=== PATIENT | male | born 1960 | race Caucasian/White ===

== ENCOUNTER → 2019-09-21 00:01 | Outpatient (RCR) | payer SELFPAY | LOC: WOUND 14:05 | PROVIDERS: Family Provider Family Medicine; Visit Provider Thoracic Surgery (Cardiothoracic Vascular Surgery) | DX: E11.621 Type 2 diabetes mellitus with foot ulcer (principal); L97.512 Non-pressure chronic ulcer of other part of right foot with fat layer exposed; I96 Gangrene, not elsewhere classified | CPT/HCPCS: 11042; G0463 ==

== ENCOUNTER 2019-09-23 09:41 | Outpatient (CLI) | payer MEDICARE, MEDICAID, SELFPAY ==
--- NOTE | 2019-09-23 09:58 | CT_ITS ---
WS: [id number] CTA ABDOMINAL AORTA WITH RUNOFF TECHNIQUE: Contrast enhanced CTA of the abdominal aorta with bilateral lower extremity runoff. Multip lanar reformatted images were obtained. MIP reformats were also reviewed. Bolus performed x 2 due to poor contrast opacification CLINICAL INFORMATION: NON HEALING ULCER/PERIPHERAL ARTERIAL DZ COMPARISON: CTA August 12, 2018 DLP: [id number] scans at [facility] use at least one of these dose optimization techniques: automat ed exposure control; mA and/or kV adjustment per patient size (includes targeted exams where dose is matched to clinical indication); or iterative reconstruction. FINDINGS: RIGHT: Right iliac stent graft. Right common iliac stent graft appears patent. Right common iliac art klaudia is patent. Internal and external iliac arteries are patent with segmental calcified atheromatous disease. Common femoral artery is patent. Stable multifocal stenosis of the right superficial femoral artery. SFA remains patent to the popliteal artery. Dense calcification with nearly occluded/occlude d popliteal artery [id number] is unchanged. Occlusion of the popliteal artery in the right poplit eal fossa. Tiny amount of reconstitution of the trifurcation with two-vessel runoff to the ankle. Poo r attenuated flow in the posterior tibial artery. LEFT: Left common iliac artery stent graft with moderate to severe stenosis in the mid left common il iac artery at the stent junction is unchanged. Common femoral artery is patent. SFA is patent with se gmental moderate multifocal stenosis. Stable moderate narrowing of the superficial femoral artery in the proximal thigh. Superficial femoral artery is patent to the popliteal junction. Dense calcificati on at the popliteal artery origin with high-grade stenosis. Popliteal artery appears occluded just ab ove the knee similar to previous with dense calcification. Trifurcation is patent with two-vessel run off to the ankle. Poor attenuated anterior tibial artery runoff. Normal caliber abdominal aorta. No abdominal aortic aneurysm. Moderate atheromatous disease. Cholecys tectomy clips. Adrenal glands are normal. Normal GE junction. Normal renal parenchymal enhancement. D ense mesenteric artery calcification. Fat-containing umbilical hernia. Diverticulosis. Fat-containing left inguinal hernia. Chronic anterior wedging in the mid thoracic spine is unchanged with kyphosis. Subsegmental atelectasis right lung base. Fat-containing inguinal lymph nodes are unchanged. CT/CT angio abd aorta runof [id number] IMPRESSION: 1. Overall bilateral lower extremity runoff is not significantly changed since August 12, 2018. Somewhat poor bolus contrast today limits evaluation. 2. Bilateral common iliac artery stents appear patent. 3. Bilateral symmetric multifocal superficial femoral artery stenosis. Femoral arteries are patent to the popliteal hiatus. 4. Occlusion of the popliteal arteries bilaterally with dense calcification un changed. 5. Poor two-vessel runoff to the right ankle with diminished posterior tibial flow. 6. Poor two-vessel runoff to the left ankle with diminished anterior tibial fl ow.
[2019-09-23 10:42] LABS: Blood Urea Nitrogen 34 mg/dL (6-20); Glomerular Filtration Rate 62.2 mL/min (90-130)
[2019-09-23] MEDS: iohexol 350 mg/mL 100 mL Btl IV (10:57)
== END 2019-09-23 09:42 | disposition home or self-care (01) ==
PROVIDERS: Family Provider Family Medicine; PCP Family Medicine; Visit Provider Thoracic Surgery (Cardiothoracic Vascular Surgery)
DX: I70.213 Atherosclerosis of native arteries of extremities with intermittent claudication, bilateral legs (principal); I74.3 Embolism and thrombosis of arteries of the lower extremities
CPT/HCPCS: 75635; 82565; 84520; Q9967

== ENCOUNTER → 2019-10-15 14:44 | Outpatient (BNVA) | payer MEDICARE, MEDICAID, SELFPAY | PROVIDERS: Family Provider Family Medicine; PCP Family Medicine; Visit Provider Anesthesiology | DX: G89.29 Other chronic pain (principal); M48.061 Spinal stenosis, lumbar region without neurogenic claudication; M51.06 Intervertebral disc disorders with myelopathy, lumbar region; M47.816 Spondylosis without myelopathy or radiculopathy, lumbar region; M79.671 Pain in right foot; M25.511 Pain in right shoulder; M25.512 Pain in left shoulder; Z79.891 Long term (current) use of opiate analgesic | CPT/HCPCS: 99214 ==

== ENCOUNTER 2019-10-19 15:18 | Outpatient (RCR) | payer MEDICARE, MEDICAID, SELFPAY | END 2019-10-22 23:59 | disposition home or self-care (01) | LOC: WOUND 15:18 | PROVIDERS: Family Provider Family Medicine; PCP Family Medicine; Visit Provider Thoracic Surgery (Cardiothoracic Vascular Surgery) | DX: E11.621 Type 2 diabetes mellitus with foot ulcer (principal); L97.513 Non-pressure chronic ulcer of other part of right foot with necrosis of muscle | CPT/HCPCS: 11042; 11044; 87070; 87077; 87176; 87186; 87205; L3260 ==

== ENCOUNTER 2019-10-25 12:39 | Outpatient (RCR) | payer MEDICARE, MEDICAID, SELFPAY ==
--- NOTE | 2019-10-25 12:52 | XRR_ITS ---
PROCEDURE INFORMATION: Exam: XR Chest, 2 Views Exam date and time: 10/25/2019 1:30 PM Age: 58 years old Clinical indication: Pre-operative exam; Cardiovascular screening and respiratory screening exam; Additional info: Screening respiratory TECHNIQUE: Imaging protocol: XR of the chest Views: 2 views. COMPARISON: CR Chest 1 view [id number] 08/04/2018 2:46 PM FINDINGS: Lungs: Unremarkable. No consolidation. Pleural space: Unremarkable. No pleural effusion. No pneumothorax. Heart/Mediastinum: Unremarkable. No cardiomegaly. Bones/joints: Unremarkable. XR/XR chest 2V* [id number] IMPRESSION: No acute findings.
--- NOTE | 2019-10-25 13:18 | ECG_ITS ---
Measurements Intervals [place] Rate: 64 P: 30 NM: 169 QRS: -16 QRSD: 96 T: 58 QT: 383 QTc: 398 SINUS RHYTHM Compared to ECG 11/25/2017 13:44:16 No significant changes Electronically Signed On 10-25-2019 21:08:04 [employer]CHO[employer] PRINCIPAL by Momo Camilo M.D. [id number]
[2019-10-25 13:29] LABS: Basophils % 0.3 %; Eosinophils # 0.3 10^3/uL (0.0-0.8); Eosinophils % 2.1 %; Hematocrit 40.3 % (42.0-52.0); Hemoglobin 13.1 g/dL (11.7-16.6); Lymphocytes # 1.9 10^3/uL (0.8-4.8); Lymphocytes % 14.5 %; Mean Corpuscular HGB Conc 32.5 g/dL (30.0-36.0); Mean Corpuscular Hemoglobin 27.7 pg (28.0-34.0); Mean Corpuscular Volume 85.2 fL (80-94); Monocytes % 7.5 %; Neutrophils % 74.9 %; Nucleated Red Blood Cells % 0 %; Platelet Count 250 10^3/cmm (130-400); Red Blood Count 4.73 10^6/uL (4.1-5.3); Red Cell Distribution Width 12.2 % (12.1-15.1); White Blood Count 13.3 10^3/uL (4.0-10.0)
[2019-10-25 13:50] LABS: Alanine Aminotransferase 16 U/L (0-41); Alkaline Phosphatase 91 IU/L (40-130); Anion Gap 14.7 (5-19); Aspartate Amino Transferase 17 U/L (0-40); Blood Urea Nitrogen 34 mg/dL (6-20); C Reactive Protein 24.3 mg/L (0.0-4.9); Carbon Dioxide 30 mmol/L (22-29); Chloride 95 mmol/L (98-107); Globulin 3.5 g/dL (1.3-4.6); Glomerular Filtration Rate 52.1 mL/min (90-130); Glucose 150 mg/dL (74-109); Potassium 4.7 mmol/L (3.5-5.1); Sodium 135 mmol/L (136-145); Total Bilirubin 0.5 mg/dL (0.15-1.2); Total Protein 7.5 g/dL (6.6-8.7)
[2019-10-25 13:59] LABS: Prealbumin 19.6 mg/dL (20-40)
[2019-10-25 14:10] LABS: Estmated Average Glucose 200; Hemoglobin A1C 8.6 % (4.0-6.0)
[2019-10-25 14:54] LABS: Erythrocyte Sedimentation Rate 52 mm/hr (0-10)
== END 2019-11-20 23:59 | disposition home or self-care (01) ==
LOC: WOUND 12:39
PROVIDERS: Family Provider Family Medicine; PCP Family Medicine; Visit Provider Thoracic Surgery (Cardiothoracic Vascular Surgery)
DX: E11.621 Type 2 diabetes mellitus with foot ulcer (principal); L97.513 Non-pressure chronic ulcer of other part of right foot with necrosis of muscle; Z13.6 Encounter for screening for cardiovascular disorders; Z13.83 Encounter for screening for respiratory disorder NEC
CPT/HCPCS: 36415; 71046; 80053; 83036; 84134; 85025; 85651; 86140; 93005; 99183; 99212; G0277; G0463

== ENCOUNTER 2019-11-10 09:51 | Outpatient (CLI) | payer MEDICARE, MEDICAID, SELFPAY ==
[2019-11-10 10:28] LABS: Basophils # 0.1 10^3/uL (0.0-0.1); Basophils % 0.4 %; Eosinophils # 0.4 10^3/uL (0.0-0.8); Eosinophils % 3.4 %; Hematocrit 37.8 % (42.0-52.0); Hemoglobin 11.9 g/dL (11.7-16.6); Lymphocytes # 1.5 10^3/uL (0.8-4.8); Lymphocytes % 12.6 %; Mean Corpuscular HGB Conc 31.5 g/dL (30.0-36.0); Mean Corpuscular Hemoglobin 27.2 pg (28.0-34.0); Mean Corpuscular Volume 86.5 fL (80-94); Mean Platelet Volume 11.7 fL (7.4-10.4); Monocytes # 0.9 10^3/uL (0.2-0.9); Monocytes % 7.6 %; Neutrophils # 8.9 10^3/uL (1.8-7.7); Neutrophils % 75.2 %; Nucleated Red Blood Cells % 0 %; Platelet Count 304 10^3/cmm (130-400); Red Blood Count 4.37 10^6/uL (4.1-5.3); Red Cell Distribution Width 12.1 % (12.1-15.1); White Blood Count 11.8 10^3/uL (4.0-10.0)
[2019-11-10 10:53] LABS: Anion Gap 17.8 (5-19); Blood Urea Nitrogen 30 mg/dL (6-20); Carbon Dioxide 27 mmol/L (22-29); Chloride 96 mmol/L (98-107); Glomerular Filtration Rate 56.7 mL/min (90-130); Glucose 106 mg/dL (65-115); Osmolality Calculated 280 mOsm/kg (285-295); Potassium 4.8 mmol/L (3.5-5.1); Sodium 136 mmol/L (136-145)
== END 2019-11-10 09:52 | disposition home or self-care (01) ==
LOC: LAB 09:59
PROVIDERS: Family Provider Family Medicine; PCP Family Medicine; Visit Provider Thoracic Surgery (Cardiothoracic Vascular Surgery)
DX: E11.9 Type 2 diabetes mellitus without complications (principal)
CPT/HCPCS: 36415; 80048; 85025; 99183; 99212; G0277; G0463

== ENCOUNTER 2019-11-16 07:50 | Outpatient (RCR) | payer MEDICARE, MEDICAID, SELFPAY | END 2019-11-20 23:59 | disposition home or self-care (01) | LOC: WOUND 07:50 | PROVIDERS: Family Provider Family Medicine; PCP Family Medicine; Visit Provider Thoracic Surgery (Cardiothoracic Vascular Surgery) | DX: E11.621 Type 2 diabetes mellitus with foot ulcer (principal); L97.513 Non-pressure chronic ulcer of other part of right foot with necrosis of muscle | CPT/HCPCS: 10060; 11042; 11044; 36415; 71046; 80053; 83036; 84134; 85025; 85651; 86140; 87070; 87077; 87186; 93005; 99183; G0277; G0463; L3260 ==

== ENCOUNTER 2019-11-17 07:04 | Day surgery (SDC) | payer MEDICARE, MEDICAID, SELFPAY ==
[2019-11-16 14:46] VITALS: BMI 38.7
[2019-11-17 07:32] LABS: Glucose Point of Care 156 mg/dL (70-110)
[2019-11-17 07:38] VITALS: BP 157/64; RESP 18; TEMP 37.1; O2SAT 98
--- NOTE | 2019-11-17 08:52 | PM.OPSURHP ---
Providers/Chief Complaint Admitting Physician: Antonio Primary Care Provider: Latoya Dumont DO Chief Complaint: PVD History of Present Illness Frank Estes JR is a 59 year old male with diabetes mellitus along with history of bilateral foot diabetic ulceration requiring numerous interventions and long history of care for in the wound care service here at [facility]. Most recently, we have been caring for a right third toe ulceration which is undergone prior debridements and now has worsened to the point that there is visualization of the proximal phalanx. He only has a second toe remaining on this foot as well. I have recommended amputation of his second and third toes with an attempt at primary closure or possible wound VAC placement for the resulting wound depending on the degree of amputation and debridement required. I have last seen him in wound care clinic yesterday. He is agreeable to the planned procedure. While his right second toe is not involved with this process, it would be the only remaining toe and I think would be at a high risk for injury, particular related to its hammertoe deformity. He agrees with our current plan. But she will need for further debridements or other interventions were also carefully discussed. He is undergone prior vascular procedures including previous endovascular interventions. Review of Systems Const: Denies: fever, chills, change in appetite, change in weight, fatigue or night sweats Eyes: Denies: change in vision or blurry vision ENMT: Denies: painful swallowing or hoarseness Card: Denies: chest pain, palpitations, irregular heart rhythm or edema Resp: Denies: shortness of breath or productive cough GI: Denies: abdominal pain, nausea, vomiting, difficulty swallowing, heartburn/indigestion or change in bowel habits : Denies: difficulty urinating, painful urination, urinary frequency, urinary urgency or urinary hesitancy Musc: Denies: extremity pain or extremity swelling Skin/Breast: Denies: rash Neuro: Denies: headache, numbness in extremities, weakness in extremities or changes in sensation Psych: Denies: anxiety, depression or change in appetite Endo: Denies: excessive urination, excessive thirst or cold intolerance Tomasz/Lymph: Denies: easy bruising, easy bleeding, petechiae or enlarged lymph nodes Medications/Allergies Allergies Allergy/AdvReac Type Severity Reaction Status Date / Time No Known Allergies Allergy Verified 11/16/19 14:30 PFSH PFSH: Medical History Amputation of left great toe Arthralgia of back Arthropathy of lumbar facet joint Chronic pain of both shoulders 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 Pain in right foot Spinal stenosis, lumbar region without neurogenic claudication Surgical History H/O right knee surgery Hx laparoscopic cholecystectomy Hx of foot surgery Social History Smoking and tobacco status: former smoker Alcohol intake: never Dietary Habits: Caffeine: Yes Caffeine intake frequency: coffee Vital Signs Vitals Signs: Last Vital Signs Temp 98.8 F 11/17/19 07:38 Resp 18 11/17/19 07:38 BP 157/64 11/17/19 07:38 Pulse Ox 98 11/17/19 07:38 Weight: Weight last 48 hrs Weight 310 lb Physical Exam Const: COMMON NORMALS: oriented x3 and alert ORIENTATION/CONSCIOUSNESS: Yes oriented to person, Yes oriented to place and Yes oriented to time HENMT: COMMON NORMALS: normocephalic HEAD & SCALP: normocephalic; no cranial bruits Neck/C-Spine: COMMON NORMALS: full ROM, supple, no JVD and no carotid bruits GENERAL: Yes trachea midline CERVICAL SPINE: Yes cervical ROM normal Chest: COMMONS NORMALS: inspection of chest normal and palpation of chest normal Resp: COMMON NORMALS: normal respiratory effort, no use of accessory muscles, clear to auscultation bilaterally and percussion normal EFFORT & INSPECTION: Yes able to speak in complete sentences and Yes symmetric chest movement AUSCULTATION: clear to auscultation bilaterally PERCUSSION: percussion normal Cardio: COMMON NORMALS: no JVD, regular rate, regular rhythm, S1 normal heart sound, S2 normal heart sound, no gallops, no murmurs, no rub and peripheral pulses 2+ throughout JUGULAR VENOUS DISTENTION: no JVD RATE: regular rate RHYTHM: regular rhythm HEART SOUNDS: S1 normal and S2 normal PERIPHERAL PULSES: pulses 2+ throughout Extremity: OTHER: He has had prior to amputation removal on the left side x2. He has had prior substantial interventions to the right foot for diabetic ulcers and has 2 remaining toes, second and third. There is worsening ulceration of the right third toe now with visible proximal phalanx which is not responded to aggressive wound care management including attempted HBO which he tolerated poorly secondary to anxiety. I have therefore recommended amputation of his right second and third toes. Neuro: COMMON NORMALS: oriented x3 and no focal motor deficits; negative for no sensory deficits noted (He has substantial diabetic neuropathy and is almost completely insensate to his feet.) SENSORIUM/ORIENTATION: Yes alert, Yes oriented to person, Yes oriented to place and Yes oriented to time GAIT: No normal gait (Secondary to prior surgeries, toe amputations, foot surgery, and need for Darco shoes) SENSORY EXAM: Yes sensory level loss detected (Feet bilaterally) A&P Assessment and plan (1) Diabetic ulcer of right foot associated with diabetes mellitus due to underlying condition, with necrosis of bone: With now exposed proximal phalanx of the right third toe, we will plan for right second and third toe amputations. Possible need for wound VAC placement as opposed to primary closure was frankly discussed with Mr. Steele. He states understanding. Proper consents have been reviewed and signed. Status: Acute Code(s): E08.621 - Diabetes mellitus due to underlying condition with foot ulcer; L97.514 - Non-pressure chronic ulcer of other part of right foot with necrosis of bone Coding Level of Care Code Acute [facility] for [facility] Fwd Exam Detailed Medical Decision Making Moderate Complexity Diagnoses Diabetic ulcer of right foot associated with diabetes mellitus due to underlying condition, with necrosis of bone E08.621; L97.514 Time Spent (min) 25
--- NOTE | 2019-11-17 09:14 | ANES.PREANE2 ---
Pre-Anesthetic Assessment Pre-Anesthetic Assessment: Height/Weight: Height 1.91 m Weight 140.614 kg Temp Resp BP Pulse Ox 98.8 F 18 157/64 98 11/17/19 07:38 11/17/19 07:38 11/17/19 07:38 11/17/19 07:38 Preop Diagnosis: right diabetic foot infection Proposed Procedure: Operation Date: 11/17/19 08:40 Proposed Procedures p Amputation Toe/s/ 2nd and 3rd toes right side(Right) - Woody Alvarez MD Was Beta Amy taken within 24 hours: Yes Last intake: Intake Last Liquid Date 11/16/19 Last Liquid Time 19:00 Last Solid Date 11/16/19 Last Solid Time 19:00 Social: Social History: Tobacco Packs per day: 1 Pack years: 5 Comment: quit 35 Exam: Pre-Anes Outpt Exam: alert, oriented x 3, clear to auscultation bilaterally and regular rate & rhythm Airway: Submandibular: WNL Cervical ROM: Other MP: 2 CV/HEM: CV/HEM: HTN and PVD Comments: rx'd x 20y stress test '15 negative Metabolic: Metabolic: DM Comments: rx'd 15y, normally 70-100 Musc/skel: Musc/skel: Lower Back Pain Comments: left radiculopathy Anesthetic Plan: ASA status: 3 Anesthesia: MAC Other: prefers light sedation PFSH Anesthesia PFSH: Medical History (Updated 11/17/19 @ 08:58 by Woody Alvarez MD) Amputation of left great toe Arthralgia of back Arthropathy of lumbar facet joint Chronic pain of both shoulders Diabetic ulcer of right foot associated with diabetes mellitus due to underlying condition, 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 Pain in right foot Spinal stenosis, lumbar region without neurogenic claudication Surgical History H/O right knee surgery Hx laparoscopic cholecystectomy Hx of foot surgery Social History Smoking and tobacco status: former smoker Alcohol intake: never Data Anesthesia Other Labs: Laboratory Results - last 48 hr 11/17/19 07:30 POC Glucose 156 Cardiac Studies: No Data to Display
[2019-11-17 09:36] LABS: Basophils # 0.1 10^3/uL (0.0-0.1); Basophils % 0.4 %; Eosinophils # 0.4 10^3/uL (0.0-0.8); Eosinophils % 3.1 %; Hematocrit 36.1 % (42.0-52.0); Hemoglobin 11.3 g/dL (11.7-16.6); Lymphocytes # 1.7 10^3/uL (0.8-4.8); Mean Corpuscular HGB Conc 31.3 g/dL (30.0-36.0); Mean Corpuscular Hemoglobin 27.2 pg (28.0-34.0); Mean Corpuscular Volume 86.8 fL (80-94); Mean Platelet Volume 12.4 fL (7.4-10.4); Monocytes # 1.1 10^3/uL (0.2-0.9); Monocytes % 8.4 %; Neutrophils # 9.7 10^3/uL (1.8-7.7); Neutrophils % 74.1 %; Nucleated Red Blood Cells % 0 %; Platelet Count 296 10^3/cmm (130-400); Red Blood Count 4.16 10^6/uL (4.1-5.3); Red Cell Distribution Width 12.3 % (12.1-15.1)
[2019-11-17 09:37] LABS: Urine Appearance Clear (CLEAR); Urine Color Yellow (Yellow)
[2019-11-17 09:38] LABS: Add Urine Microscopic? YES; Bilirubin Urine Neg (NEGATIVE); Blood Urine Neg (Negative); Glucose Urine UA Norm (Normal); Ketones Urine Negative (Negative); Leukocyte Esterase Urine Negative (Negative); Nitrate Urine Negative (Negative); Protein Urine 1+ (Negative); Specific Gravity, Urine 1.015 (1.005-1.030); Urobilinogen Urine Norm (Negative)
[2019-11-17] MEDS: sodium chloride 0.9% 1,000 ML 30 ML IV (09:45)
[2019-11-17 09:47] LABS: INR 1.14 (0.8-1.2)
[2019-11-17 09:53] LABS: Anion Gap 16.4 (5-19); Blood Urea Nitrogen 27 mg/dL (6-20); Calcium 9.4 mg/dL (8.5-10.5); Carbon Dioxide 25 mmol/L (22-29); Chloride 97 mmol/L (98-107); Glomerular Filtration Rate 68.5 mL/min (90-130); Glucose 170 mg/dL (65-115); Osmolality Calculated 279 mOsm/kg (285-295); Potassium 4.4 mmol/L (3.5-5.1); Sodium 134 mmol/L (136-145)
[2019-11-17] MEDS: vancomycin 1,000 MG in sodium chloride 0.9% 250 ML 250 MG IV (09:58)
[2019-11-17] MEDS: lidocaine 1% INJ 20 mL SUBCUT (10:05)
[2019-11-17] MEDS: vancomycin 1,000 MG SDV 1000 MG IRRIGATION (10:06)
[2019-11-17 10:09] LABS: Bacteria Urine TRACE; Mucus Urine 1+; RBC Urine 0-4 /hpf (0-2); Squamous Epithelial Cell Urine 0-4 (0-5)
[2019-11-17 10:10] LABS: Add Urine Culture? No
--- NOTE | 2019-11-17 11:04 | P.OP_ITS ---
Operative Report Date of procedure: November 17, 2019 Pre-op Diagnosis: right diabetic foot infection Procedure Done: Right second and third toe amputations with primary closure Specimens removed/disposition: Right second and third toe to pathology department Wound cultures to microbiology department Surgeon: Woody Alvarez Anesthesia: MAC and Local (8 cc 1% lidocaine administered local) Complications: None Condition: stable Disposition: same day Brief History: 59-year-old gentleman with a long history of diabetic foot infections. Currently followed in wound care clinic for breakdown of his right third toe which is failed respond to local therapy, now with exposed proximal phalanx. I have recommended subsequent amputation and in addition removal the only remaining toe which is the right second toe due to concerns for local injury related to his hammertoe deformity. Rationale was carefully discussed with Mr. Malcolm. Proper consents have been reviewed and signed. Procedure: Mr. Malcolm was taken operating room theater and carefully positioned. Appropriate IVs were confirmed. He was administered 1 g of vancomycin IV prophylactically. He underwent IV conscious sedation anesthesia monitoring. His entire right foot and lower leg was sterilely prepped and draped. 1% lidocaine was infiltrated circumferentially and as digital blocks to the remaining right second and third toes. #15 scalpel blade was utilized to incise circumferentially around these toes down to the metatarsal phalangeal joints with septic removal of these 2 toes as a single specimen. Cultures from the third toe by way of tissue specimen was obtained and sent to microbiology. The specimens himself first and sent to pathology. Articular surfaces of the right second and third metatarsals were then excised utilizing bone rondure. Hemostasis controlled utilizing pressure and judicious use of cautery. After careful irrigation and confirmation of hemostasis, we did plan to attempt p rimary closure which was the request of Mr. Malcolm. I did instruct him preoperatively that this may not be possible due to tension in the region. There is some modest tension noted however with 2 rows of interrupted mattress sutures of 2-0 nylon, I do feel we had a reasonable approximation and good closure. Following this, Xeroform gauze and sterile dressing was applied. He tolerated procedure well was awakened from IV conscious sedation returned to the outpatient surgery department in stable condition. I did education counselor with him at completion of the procedure. He will be discharged home today for follow-up in wound care clinic next Friday. I will place him on Levaquin 5 mg daily for 7 days pending return of our tissue cultures. I have instructed him to limit weightbearing as much as possible as well as ambulation. I will see him next Friday in the wound care services department.
[2019-11-17 11:13] VITALS: BP 134/76; PULSE 72; RESP 18; TEMP 36.9; O2SAT 98
[2019-11-17 11:37] VITALS: BP 164/82; PULSE 70; RESP 18; TEMP 36.9; O2SAT 98
== END 2019-11-17 11:50 | disposition home or self-care (01) ==
PROVIDERS: Family Provider Family Medicine; PCP Family Medicine; Visit Provider Thoracic Surgery (Cardiothoracic Vascular Surgery)
PROC: (CPT 28820; principal; 2019-11-17 08:40)
DX: E11.621 Type 2 diabetes mellitus with foot ulcer (principal); L97.514 Non-pressure chronic ulcer of other part of right foot with necrosis of bone; I10 Essential (primary) hypertension; E11.9 Type 2 diabetes mellitus without complications; Z87.891 Personal history of nicotine dependence; Z89.412 Acquired absence of left great toe
CPT/HCPCS: 28820 ×2; 12345; 36415; 36416; 80048; 81001; 82962; 85025; 85610; 87070; 87077; 87176; 87186; 87205; 88305; 96365; J2001; J2704; J3010; J3370; J7030; J7050

== ENCOUNTER → 2019-11-24 14:38 | Outpatient (BNVA) | payer MEDICARE, MEDICAID, SELFPAY | PROVIDERS: Family Provider Family Medicine; PCP Family Medicine; Visit Provider Anesthesiology | DX: G89.29 Other chronic pain (principal); M51.06 Intervertebral disc disorders with myelopathy, lumbar region; M48.061 Spinal stenosis, lumbar region without neurogenic claudication; M47.816 Spondylosis without myelopathy or radiculopathy, lumbar region; M54.9 Dorsalgia, unspecified; M25.511 Pain in right shoulder; M25.512 Pain in left shoulder; M79.671 Pain in right foot; Z79.891 Long term (current) use of opiate analgesic | CPT/HCPCS: 99213; 99214; G0463 ==

== ENCOUNTER → 2019-12-15 13:31 | Outpatient (BNVA) | payer MEDICARE, MEDICAID, SELFPAY | PROVIDERS: Family Provider Family Medicine; PCP Family Medicine; Visit Provider Family Medicine | DX: E11.65 Type 2 diabetes mellitus with hyperglycemia (principal); Z79.4 Long term (current) use of insulin; I10 Essential (primary) hypertension | CPT/HCPCS: 80053; 83036; 99211; G0463 ==

== ENCOUNTER 2019-12-21 13:29 | Outpatient (RCR) | payer MEDICARE, MEDICAID, SELFPAY | END 2019-12-21 23:59 | disposition home or self-care (01) | LOC: WOUND 13:29 | PROVIDERS: Family Provider Family Medicine; PCP Family Medicine; Visit Provider Thoracic Surgery (Cardiothoracic Vascular Surgery) | DX: E11.621 Type 2 diabetes mellitus with foot ulcer (principal); L97.519 Non-pressure chronic ulcer of other part of right foot with unspecified severity; Z89.9 Acquired absence of limb, unspecified | CPT/HCPCS: 99211; 99212; G0463; L3260 ==

== ENCOUNTER → 2020-03-23 14:42 | Outpatient (BNVA) | payer MEDICARE, MEDICAID, SELFPAY | PROVIDERS: Family Provider Family Medicine; PCP Family Medicine; Visit Provider Family Medicine | DX: E11.65 Type 2 diabetes mellitus with hyperglycemia (principal); Z79.4 Long term (current) use of insulin; I10 Essential (primary) hypertension | CPT/HCPCS: 80053; 82044; 83036 ==

== ENCOUNTER → 2020-03-31 12:55 | Outpatient (BNVA) | payer MEDICARE, MEDICAID, SELFPAY | PROVIDERS: Family Provider Family Medicine; PCP Family Medicine; Visit Provider Anesthesiology | DX: M51.06 Intervertebral disc disorders with myelopathy, lumbar region (principal); M48.061 Spinal stenosis, lumbar region without neurogenic claudication; M47.816 Spondylosis without myelopathy or radiculopathy, lumbar region; M54.9 Dorsalgia, unspecified; Z79.891 Long term (current) use of opiate analgesic | CPT/HCPCS: 99213; 99214 ==

== ENCOUNTER → 2020-04-03 15:51 | Outpatient (BNVA) | payer MEDICARE, MEDICAID, SELFPAY | PROVIDERS: Family Provider Family Medicine; PCP Family Medicine; Visit Provider Family Medicine | DX: N28.9 Disorder of kidney and ureter, unspecified (principal) | CPT/HCPCS: 82043 ==

== ENCOUNTER → 2020-07-10 14:34 | Outpatient (BNVA) | payer MEDICARE, MEDICAID, SELFPAY | PROVIDERS: Family Provider Family Medicine; PCP Family Medicine; Visit Provider Family Medicine | DX: E78.5 Hyperlipidemia, unspecified (principal); E11.9 Type 2 diabetes mellitus without complications; I10 Essential (primary) hypertension; E11.65 Type 2 diabetes mellitus with hyperglycemia; Z79.4 Long term (current) use of insulin; Z68.39 Body mass index [BMI] 39.0-39.9, adult | CPT/HCPCS: 80053; 80061; 82043; 83036; 85025 ==

== ENCOUNTER → 2020-10-20 09:20 | Outpatient (BNVA) | payer MEDICARE, MEDICAID, SELFPAY | PROVIDERS: Family Provider Family Medicine; PCP Family Medicine; Visit Provider Family Medicine | DX: E11.65 Type 2 diabetes mellitus with hyperglycemia (principal); Z79.4 Long term (current) use of insulin; I10 Essential (primary) hypertension; E78.5 Hyperlipidemia, unspecified | CPT/HCPCS: 80048; 83036 ==

== ENCOUNTER → 2021-01-12 09:07 | Outpatient (BNVA) | payer MEDICARE, MEDICAID, SELFPAY | PROVIDERS: Family Provider Family Medicine; PCP Family Medicine; Visit Provider Family Medicine | DX: E11.65 Type 2 diabetes mellitus with hyperglycemia (principal); Z79.4 Long term (current) use of insulin; E78.5 Hyperlipidemia, unspecified; I10 Essential (primary) hypertension | CPT/HCPCS: 80053; 80061; 83036 ==

== ENCOUNTER → 2021-02-23 12:38 | Outpatient (BNVA) | payer MEDICARE, MEDICAID, SELFPAY | PROVIDERS: Family Provider Family Medicine; PCP Family Medicine; Visit Provider Anesthesiology | DX: M51.06 Intervertebral disc disorders with myelopathy, lumbar region (principal); M48.061 Spinal stenosis, lumbar region without neurogenic claudication; M47.816 Spondylosis without myelopathy or radiculopathy, lumbar region; M54.9 Dorsalgia, unspecified; Z79.891 Long term (current) use of opiate analgesic | CPT/HCPCS: 99213 ==

== ENCOUNTER 2021-07-10 12:50 | Outpatient (CLI) | payer MEDICARE, MEDICAID, SELFPAY ==
--- NOTE | 2021-07-10 13:03 | US_ITS ---
WS: [id number] ULTRASOUND RENAL TECHNIQUE: Ultrasound examination of both kidneys. CLINICAL INFORMATION: CHRONIC KIDNEY DZ STAGE 2 COMPARISON: None. FINDINGS: RIGHT: Right kidney is normal in size and appearance. Echogenicity: Normal. Cortical thickness: 1.5 cm; Normal. Hydronephrosis: None. Perinephric fluid: None. Right kidney measures: 13.6 cm x 4.9 cm x 6.2 cm. LEFT: Left kidney is normal in size and appearance. Echogenicity: Normal. Cortical thickness: 1.7 cm; Normal. Hydronephrosis: None. Perinephric fluid: None. Left kidney measures: 13.8 cm x 5.5 cm x 6.5 cm. Normal visualized aorta. Normal bladder. US/US renal BI* [id number] IMPRESSION: Normal renal ultrasound
== END 2021-07-10 12:51 | disposition home or self-care (01) ==
LOC: RAD 12:56
PROVIDERS: PCP Family Medicine; Visit Provider Registered Nurse
DX: N18.2 Chronic kidney disease, stage 2 (mild) (principal)
CPT/HCPCS: 76770

== ENCOUNTER → 2021-07-13 08:47 | Outpatient (BNVA) | payer MEDICARE, MEDICAID, SELFPAY | PROVIDERS: PCP Family Medicine; Visit Provider Family Medicine | DX: E78.5 Hyperlipidemia, unspecified (principal); E11.65 Type 2 diabetes mellitus with hyperglycemia; Z79.4 Long term (current) use of insulin; E11.22 Type 2 diabetes mellitus with diabetic chronic kidney disease; N18.30 Chronic kidney disease, stage 3 unspecified; I12.9 Hypertensive chronic kidney disease with stage 1 through stage 4 chronic kidney disease, or unspecified chronic kidney disease | CPT/HCPCS: 80053; 80061; 83036; 85025 ==

== ENCOUNTER → 2021-11-29 15:35 | Outpatient (BNVA) | payer MEDICARE, MEDICAID, SELFPAY | PROVIDERS: PCP Family Medicine; Visit Provider Family Medicine | DX: E11.621 Type 2 diabetes mellitus with foot ulcer (principal); L97.529 Non-pressure chronic ulcer of other part of left foot with unspecified severity | CPT/HCPCS: 87070; 87075; 87077; 87184; 87205 ==

== ENCOUNTER 2021-12-03 08:08 | Outpatient (CLI) | payer MEDICARE, MEDICAID, SELFPAY | END 2021-12-03 08:09 | disposition home or self-care (01) | LOC: WOUND 08:10 | PROVIDERS: PCP Family Medicine; Visit Provider Thoracic Surgery (Cardiothoracic Vascular Surgery) | DX: E11.621 Type 2 diabetes mellitus with foot ulcer (principal); I96 Gangrene, not elsewhere classified; L97.522 Non-pressure chronic ulcer of other part of left foot with fat layer exposed | CPT/HCPCS: 11044; 87070; 87077; 87176; 87186; 87205; 99213 ==

== ENCOUNTER 2021-12-04 14:46 | Outpatient (CLI) | payer MEDICARE, MEDICAID, SELFPAY ==
--- NOTE | 2021-12-04 14:51 | XR_ITS ---
WS: [id number] Left fourth toe, 4 views, 12/04/2021 Clinical Data: TYPE 2 DM FOOT ULCER LEFT 4TH TOE Comparison: Left foot, 10/15/2016. Findings: There is soft tissue swelling of the distal phalanx of left fourth toe with destruction of the greate st portion of the distal phalanx. The adjoining toes are not remarkable. XR/XR toe LT min 2V [id number] Impression: Bone destruction of the distal phalanx of left fourth toe consistent with osteo myelitis.
[2021-12-04 15:21] LABS: Basophils # 0.1 10^3/uL (0.0-0.1); Basophils % 0.7 %; Eosinophils # 0.4 10^3/uL (0.0-0.8); Eosinophils % 2.9 %; Hematocrit 46.8 % (42.0-52.0); Hemoglobin 14.5 g/dL (11.7-16.6); Lymphocytes # 2.3 10^3/uL (0.8-4.8); Mean Corpuscular Hemoglobin 27.3 pg (28.0-34.0); Mean Platelet Volume 12.7 fL (7.4-10.4); Monocytes % 7.4 %; Neutrophils # 9.08 10^3/uL (1.8-7.7); Neutrophils % 70.5 %; Nucleated Red Blood Cells % 0 %; Platelet Count 264 10^3/cmm (130-400); Red Blood Count 5.32 10^6/uL (4.1-5.3); Red Cell Distribution Width 13.5 % (12.1-15.1); White Blood Count 12.9 10^3/uL (4.0-10.0)
[2021-12-04 15:41] LABS: Erythrocyte Sedimentation Rate 47 mm/hr (0-10)
[2021-12-04 15:46] LABS: Alanine Aminotransferase 19 U/L (0-41); Alkaline Phosphatase 82 IU/L (40-130); Anion Gap 15.5 (5-19); Aspartate Amino Transferase 21 U/L (0-40); Blood Urea Nitrogen 19 mg/dL (8-23); C Reactive Protein 12.4 mg/L (0.0-4.9); Calcium 9.5 mg/dL (8.5-10.5); Carbon Dioxide 26 mmol/L (22-29); Chloride 99 mmol/L (98-107); Globulin 3.2 g/dL (1.3-4.6); Glomerular Filtration Rate 61.6 mL/min (90-130); Glucose 97 mg/dL (65-115); Osmolality Calculated 284 mOsm/kg (285-295); Potassium 4.5 mmol/L (3.5-5.1); Sodium 136 mmol/L (136-145); Total Bilirubin 0.7 mg/dL (0.15-1.2); Total Protein 7.2 g/dL (6.6-8.7)
[2021-12-04 17:33] LABS: Estmated Average Glucose 197; Hemoglobin A1C 8.5 % (4.0-6.0)
== END 2021-12-04 14:47 | disposition home or self-care (01) ==
LOC: RAD 14:49
PROVIDERS: PCP Family Medicine; Visit Provider Thoracic Surgery (Cardiothoracic Vascular Surgery)
DX: E11.621 Type 2 diabetes mellitus with foot ulcer (principal); I10 Essential (primary) hypertension; E78.5 Hyperlipidemia, unspecified
CPT/HCPCS: 73660; 80053; 83036; 85025; 85651; 86140

== ENCOUNTER 2021-12-07 13:08 | Outpatient (CLI) | payer MEDICARE, MEDICAID, SELFPAY ==
--- NOTE | 2021-12-07 13:16 | CTR_ITS ---
PROCEDURE INFORMATION: Exam: CTA Angiogram of the Abdominal Aorta and Bilateral Lower Extremities (Run-off) With IV Contrast Exam date and time: 12/07/2021 1:44 PM Age: 61 years old Clinical indication: Condition or disease; Other: Type 2 dm with foot ulcer; Prior surgery; Surgery type: Toe amputation bilat, stents ambrosio leg TECHNIQUE: Imaging protocol: CT angiogram of the abdominal aorta, pelvis and bilateral lower extremities with IV iodinated contrast. 3D rendering (Not supervised by radiologist): MIP and/or 3D reconstructed images were created by the technologist. Radiation optimization: All CT scans at this facility use at least one of these dose optimization techniques: automated exposure control; mA and/or kV adjustment per patient size (includes targeted exams where dose is matched to clinical indication); or iterative reconstruction. Contrast material: OMNI 350; Contrast volume: 95 ml; Contrast route: INTRAVENOUS (IV); COMPARISON: CT angio abd aorta runof [id number] 09/23/2019 10:59 AM RADIATION DOSE METRICS: Total DLP (mGy-cm): 2527.85 FINDINGS: Aorta: Moderate diffuse atherosclerotic disease is present. No aortic aneurysm. No aortic dissection. Celiac trunk and mesenteric arteries: Patent celiac trunk, SMA and NICHO. Renal arteries: There is mild stenosis at the ostium of the left renal artery. The right main and accessory renal arteries are unremarkable. Right iliac arteries: Patent right common iliac artery stent. There is focal areas of mild stenosis in the right external and internal iliac arteries. Right femoral/popliteal arteries: There is mild stenosis of the right common femoral artery. There is focal areas of mild to severe stenosis throughout the right superficial femoral artery, with occlusion of the distal superficial femoral artery at the level of the adductor canal. There is occlusion of the right popliteal artery, with scattered areas of reconstitution via profunda collaterals. Right infrapopliteal arteries: There is mild stenosis of the reconstituted right tibioperoneal trunk. There is focal areas of mild stenosis in the proximal right peroneal artery. There is non-opacification/occlusion of the right posterior tibial artery. There is scattered areas of mild to severe stenosis in the right anterior tibial artery. There is scattered areas of mild stenosis in the proximal right posterior tibial artery. Patent right dorsalis pedis artery. Patent reconstituted right plantar arteries. Left iliac arteries: The patent left common iliac and external iliac artery stents. There is focal areas of mild stenosis in the left internal iliac artery. Left femoral/popliteal arteries: There is mild stenosis of the left common femoral artery. There is scattered areas of mild stenosis throughout the proximal and mid left superficial femoral artery, and scattered areas of severe stenosis at the level of the adductor canal. There is occlusion of the left peroneal artery, with distal reconstitution via collaterals. Left infrapopliteal arteries: There is moderate stenosis of the reconstituted left tibioperoneal trunk. There is focal areas of mild stenosis in the proximal left peroneal artery. There is focal areas of mild to severe stenosis in the proximal left anterior tibial artery. There is occlusion of the mid and distal left anterior tibial artery with reconstitution at the level of the ankle. Patent reconstituted left dorsalis pedis artery. Patent left plantar arteries. Pleural space: Mild decrease in size of pleural based nodular opacities about the posterior aspect of the right lung base, the largest measuring 1.3 cm. The lungs are otherwise clear. Heart: Normal heart size. Coronary atherosclerotic calcifications seen. No pericardial effusion. Liver: The liver is diffusely decreased in density, compatible with hepatic steatosis. No discrete mass lesion identified. Gallbladder and bile ducts: The gallbladder has been surgically removed. Pancreas: Unremarkable. No mass. No ductal dilation. Spleen: Normal. No splenomegaly. Adrenals: Normal. No mass. Kidneys and ureters: Normal. No mass. Stomach and bowel: There is diverticulosis without evidence of diverticulitis. Appendix: No evidence of appendicitis. Urinary bladder: Unremarkable. No mass. Reproductive: Unremarkable as visualized. Intraperitoneal space: Unremarkable. No free air. No significant fluid collection. Lymph nodes: No lymphadenopathy. Bones/joints: The patient is status post amputation of the right 1st through 5th toe and left 1st and 2nd toes. No clear evidence of cortical destruction, focal osteopenia or periosteal reaction to suggest osteomyelitis. Degenerative changes of the spine seen. Soft tissues: Unremarkable. CT/CT angio abd aorta runof [id number] IMPRESSION: Severe diffuse peripheral arterial disease, as described above.
[2021-12-07] MEDS: iohexol 350 mg/mL 100 mL Btl IV (14:14)
== END 2021-12-07 13:09 | disposition home or self-care (01) ==
LOC: RAD 13:09
PROVIDERS: PCP Family Medicine; Visit Provider Thoracic Surgery (Cardiothoracic Vascular Surgery)
DX: E11.621 Type 2 diabetes mellitus with foot ulcer (principal); I73.9 Peripheral vascular disease, unspecified
CPT/HCPCS: 75635

== ENCOUNTER 2021-12-10 08:12 | Outpatient (CLI) | payer MEDICARE, MEDICAID, SELFPAY | END 2021-12-10 08:13 | disposition home or self-care (01) | LOC: WOUND 08:13 | PROVIDERS: PCP Family Medicine; Visit Provider Thoracic Surgery (Cardiothoracic Vascular Surgery) | DX: I96 Gangrene, not elsewhere classified (principal); E11.621 Type 2 diabetes mellitus with foot ulcer; L97.522 Non-pressure chronic ulcer of other part of left foot with fat layer exposed | CPT/HCPCS: 11042; 99204 ==

== ENCOUNTER 2021-12-13 14:41 | Outpatient (CLI) | payer MEDICARE, MEDICAID, SELFPAY | END 2021-12-13 14:42 | disposition home or self-care (01) | LOC: SPT 14:42 | PROVIDERS: PCP Family Medicine; Visit Provider Thoracic Surgery (Cardiothoracic Vascular Surgery) | DX: R26.89 Other abnormalities of gait and mobility (principal) | CPT/HCPCS: 97760 ==

== ENCOUNTER → 2021-12-17 08:54 | Outpatient (BNVA) | payer MEDICARE, MEDICAID, SELFPAY | PROVIDERS: PCP Family Medicine; Visit Provider Nurse Practitioner Family | DX: E11.621 Type 2 diabetes mellitus with foot ulcer (principal); I96 Gangrene, not elsewhere classified; L97.522 Non-pressure chronic ulcer of other part of left foot with fat layer exposed; L97.412 Non-pressure chronic ulcer of right heel and midfoot with fat layer exposed | CPT/HCPCS: 11042 ==

== ENCOUNTER → 2022-01-07 08:17 | Outpatient (BNVA) | payer MEDICARE, MEDICAID, SELFPAY | PROVIDERS: PCP Family Medicine; Visit Provider Thoracic Surgery (Cardiothoracic Vascular Surgery) | DX: E11.621 Type 2 diabetes mellitus with foot ulcer (principal); I96 Gangrene, not elsewhere classified; L97.522 Non-pressure chronic ulcer of other part of left foot with fat layer exposed; L97.412 Non-pressure chronic ulcer of right heel and midfoot with fat layer exposed | CPT/HCPCS: 11044; 87070; 87077; 87176; 87186; 87205; 97597; A6250 ==

== ENCOUNTER → 2022-01-14 08:09 | Outpatient (BNVA) | payer MEDICARE, MEDICAID, SELFPAY | PROVIDERS: PCP Family Medicine; Visit Provider Thoracic Surgery (Cardiothoracic Vascular Surgery) | DX: E11.621 Type 2 diabetes mellitus with foot ulcer (principal); L97.522 Non-pressure chronic ulcer of other part of left foot with fat layer exposed; Z89.422 Acquired absence of other left toe(s); I96 Gangrene, not elsewhere classified; L97.412 Non-pressure chronic ulcer of right heel and midfoot with fat layer exposed | CPT/HCPCS: 11044; 97597 ==

== ENCOUNTER → 2022-01-28 07:55 | Outpatient (BNVA) | payer MEDICARE, MEDICAID, SELFPAY | PROVIDERS: PCP Family Medicine; Visit Provider Thoracic Surgery (Cardiothoracic Vascular Surgery) | DX: E11.621 Type 2 diabetes mellitus with foot ulcer (principal); L97.522 Non-pressure chronic ulcer of other part of left foot with fat layer exposed; I96 Gangrene, not elsewhere classified; L97.412 Non-pressure chronic ulcer of right heel and midfoot with fat layer exposed; L97.411 Non-pressure chronic ulcer of right heel and midfoot limited to breakdown of skin | CPT/HCPCS: 11042; 11044; 97597 ==

== ENCOUNTER 2022-01-30 08:04 | Outpatient (CLI) | payer MEDICARE, MEDICAID, SELFPAY ==
--- NOTE | 2022-01-30 08:30 | CT_ITS ---
WS: [id number] INDICATION: Osteomyelitis TECHNIQUE: Noncontrast CT RIGHT foot FINDINGS: Prior postoperative changes amputation at the 1st, 2nd, 3rd, and 4th MTP. Amputation involv ing the 5th metatarsal shaft. Osteopenia. Vascular calcification. Ulceration along the dorsal foot at the level of the 4th metatarsal. Diffuse soft tissue edema dorsal foot. No evidence of underlying os teomyelitis in the 4th or 5th metatarsal. Additional ulceration along the plantar forefoot at the level of the 2nd metatarsal. Bony destructive changes involving the 2nd Distal metatarsal and metatarsal head compatible with osteomyelitis. No ev idence of osteomyelitis in the 3rd, 4th or 5th residual metatarsals. Pes planus. Small plantar calcaneal spur. Moderate degenerative arthritis of the ankle mortise. Sonia l medial and lateral malleolus. Subchondral cystic change involving the talus. Normal talonavicular j oint. CT/CT foot RT wo con* [id number] IMPRESSION: 1. Prior postoperative changes described above. 2. Soft tissue ulceration with destructive osteomyelitis involving the 2nd dis aditya metatarsal metatarsal head. Diffuse surrounding soft tissue edema. No drain able fluid collections. 3. Additional area of ulceration involving the dorsal lateral foot soft tissue s of the level of the 4th metatarsal. No underlying osteomyelitis in this area. 4. No other significant changes compared to the prior exams.
== END 2022-01-30 08:05 | disposition home or self-care (01) ==
PROVIDERS: PCP Family Medicine; Visit Provider Thoracic Surgery (Cardiothoracic Vascular Surgery)
DX: M86.8X7 Other osteomyelitis, ankle and foot (principal)
CPT/HCPCS: 73700

== ENCOUNTER 2022-02-01 13:29 | Outpatient (CLI) | payer MEDICARE, MEDICAID, SELFPAY ==
--- NOTE | 2022-02-01 13:51 | XR_ITS ---
WS: [id number] XR chest 2V* [id number] REASON FOR EXAM: Z13.83 - Encounter for screening for respiratory disorder... FINDINGS: Chest is unchanged compared to 12/10/2019. The heart and mediastinum are within normal limits. Calcified granulomatous changes in both lungs. No active pulmonary parenchymal or pleural disease noted. Moderate degenerative spondylosis in the mid and lower thoracic spine. XR/XR chest 2V* [id number] IMPRESSION: Stable chest with no acute abnormality.
--- NOTE | 2022-02-01 14:51 | ECG_ITS ---
[facility] Test Date: 2022-02-01 Pat Name: Frank Estes Department: Room: Gender: Male Ophthalmic Aide: : 1960 Requested By: Woody Alvarez Order Number: [id number] Celsa MD: Hakeem Abdi M.D. Measurements Intervals Traver Rate: 59 P: 39 MO: 177 QRS: -21 QRSD: 100 T: 75 QT: 400 QTc: 396 Interpretive Statements SINUS BRADYCARDIA BORDERLINE LEFT AXIS DEVIATION [QRS AXIS < -20] S1-S2-S3 PATTERN, CONSISTENT WITH PULMONARY DISEASE, RVH, OR NORMAL VARIANT NONSPECIFIC T-WAVE ABNORMALITY INTERPRETATION BASED ON A DEFAULT AGE OF 40 YEARS Compared to ECG 10/25/2019 13:04:22 Right ventricular hypertrophy now present T-wave abnormality now present Sinus rhythm no longer present Electronically Signed On 02-01-2022 20:43:12 CDT by Hakeem Abdi M.D. [id number]
== END 2022-02-01 13:30 | disposition home or self-care (01) ==
PROVIDERS: PCP Family Medicine; Visit Provider Thoracic Surgery (Cardiothoracic Vascular Surgery)
DX: Z13.83 Encounter for screening for respiratory disorder NEC (principal)
CPT/HCPCS: 71046; 93005

== ENCOUNTER 2022-02-04 07:41 | Outpatient (CLI) | payer MEDICARE, MEDICAID, SELFPAY ==
[2022-02-04 07:58] LABS: Basophils # 0.1 10^3/uL (0.0-0.1); Basophils % 0.6 %; Eosinophils # 0.6 10^3/uL (0.0-0.8); Eosinophils % 4.7 %; Hemoglobin 13.2 g/dL (11.7-16.6); Lymphocytes # 1.8 10^3/uL (0.8-4.8); Lymphocytes % 14.4 %; Mean Corpuscular HGB Conc 31.4 g/dL (30.0-36.0); Mean Corpuscular Hemoglobin 26.9 pg (28.0-34.0); Mean Corpuscular Volume 85.7 fl (80-94); Mean Platelet Volume 11.5 fL (7.4-10.4); Monocytes # 0.9 10^3/uL (0.2-0.9); Monocytes % 6.9 %; Neutrophils # 8.98 10^3/uL (1.8-7.7); Neutrophils % 72.8 %; Nucleated Red Blood Cells % 0 %; Platelet Count 315 10^3/cmm (130-400); Red Cell Distribution Width 14.6 % (12.1-15.1); White Blood Count 12.4 10^3/uL (4.0-10.0)
[2022-02-04 08:19] LABS: Alanine Aminotransferase 13 U/L (0-41); Albumin Level 3.8 g/dL (3.5-5.2); Alkaline Phosphatase 76 IU/L (40-130); Aspartate Amino Transferase 16 U/L (0-40); Blood Urea Nitrogen 41 mg/dL (8-23); C Reactive Protein 28.6 mg/L (0.0-4.9); Calcium 8.5 mg/dL (8.5-10.5); Carbon Dioxide 23 mmol/L (22-29); Chloride 98 mmol/L (98-107); Globulin 3.4 g/dL (1.3-4.6); Glomerular Filtration Rate 61.6 mL/min (90-130); Glucose 165 mg/dL (65-115); Osmolality Calculated 292 mOsm/kg (285-295); Sodium 134 mmol/L (136-145); Total Bilirubin 0.5 mg/dL (0.15-1.2); Total Protein 7.2 g/dL (6.6-8.7)
[2022-02-04 08:24] LABS: Anion Gap 17.5 (5-19); Erythrocyte Sedimentation Rate 68 mm/hr (0-10); Potassium 4.5 mmol/L (3.5-5.1)
[2022-02-04 08:37] LABS: Estmated Average Glucose 137; Hemoglobin A1C 6.4 % (4.0-6.0)
== END 2022-02-04 07:42 | disposition home or self-care (01) ==
LOC: LAB 07:43
PROVIDERS: PCP Family Medicine; Visit Provider Thoracic Surgery (Cardiothoracic Vascular Surgery)
DX: E11.621 Type 2 diabetes mellitus with foot ulcer (principal); L97.522 Non-pressure chronic ulcer of other part of left foot with fat layer exposed; L97.412 Non-pressure chronic ulcer of right heel and midfoot with fat layer exposed; L97.411 Non-pressure chronic ulcer of right heel and midfoot limited to breakdown of skin; I96 Gangrene, not elsewhere classified; L97.514 Non-pressure chronic ulcer of other part of right foot with necrosis of bone; L97.529 Non-pressure chronic ulcer of other part of left foot with unspecified severity
CPT/HCPCS: 11042; 36415; 80053; 83036; 85025; 85651; 86140; 97597; G0277

== ENCOUNTER → 2022-02-05 08:21 | Outpatient (BNVA) | payer MEDICARE, MEDICAID, SELFPAY | PROVIDERS: PCP Family Medicine | DX: E11.621 Type 2 diabetes mellitus with foot ulcer (principal); L97.413 Non-pressure chronic ulcer of right heel and midfoot with necrosis of muscle; M86.8X7 Other osteomyelitis, ankle and foot | CPT/HCPCS: G0277 ==

== ENCOUNTER → 2022-02-06 08:15 | Outpatient (BNVA) | payer MEDICARE, MEDICAID, SELFPAY | PROVIDERS: PCP Family Medicine | DX: E11.621 Type 2 diabetes mellitus with foot ulcer (principal); L97.514 Non-pressure chronic ulcer of other part of right foot with necrosis of bone; M86.8X7 Other osteomyelitis, ankle and foot | CPT/HCPCS: G0277 ==

== ENCOUNTER → 2022-02-07 13:24 | Outpatient (BNVA) | payer MEDICARE, MEDICAID, SELFPAY | PROVIDERS: PCP Family Medicine | DX: E11.621 Type 2 diabetes mellitus with foot ulcer (principal); L97.514 Non-pressure chronic ulcer of other part of right foot with necrosis of bone; M86.8X7 Other osteomyelitis, ankle and foot | CPT/HCPCS: G0277 ==

== ENCOUNTER → 2022-02-11 07:55 | Outpatient (BNVA) | payer MEDICARE, MEDICAID, SELFPAY | PROVIDERS: PCP Family Medicine | DX: E11.621 Type 2 diabetes mellitus with foot ulcer (principal); L97.416 Non-pressure chronic ulcer of right heel and midfoot with bone involvement without evidence of necrosis; M86.8X7 Other osteomyelitis, ankle and foot; L97.522 Non-pressure chronic ulcer of other part of left foot with fat layer exposed; L97.412 Non-pressure chronic ulcer of right heel and midfoot with fat layer exposed; L97.411 Non-pressure chronic ulcer of right heel and midfoot limited to breakdown of skin; I96 Gangrene, not elsewhere classified | CPT/HCPCS: 11042; 97597; G0277 ==

== ENCOUNTER → 2022-02-12 08:40 | Outpatient (BNVA) | payer MEDICARE, MEDICAID, SELFPAY | PROVIDERS: PCP Family Medicine | DX: E11.621 Type 2 diabetes mellitus with foot ulcer (principal); L97.413 Non-pressure chronic ulcer of right heel and midfoot with necrosis of muscle; M86.671 Other chronic osteomyelitis, right ankle and foot | CPT/HCPCS: G0277 ==

== ENCOUNTER → 2022-02-14 13:13 | Outpatient (BNVA) | payer MEDICARE, MEDICAID, SELFPAY | PROVIDERS: PCP Family Medicine | DX: E11.621 Type 2 diabetes mellitus with foot ulcer (principal); L97.413 Non-pressure chronic ulcer of right heel and midfoot with necrosis of muscle; M86.671 Other chronic osteomyelitis, right ankle and foot | CPT/HCPCS: G0277 ==

== ENCOUNTER → 2022-02-21 08:10 | Outpatient (BNVA) | payer MEDICARE, MEDICAID, SELFPAY | PROVIDERS: PCP Family Medicine | DX: E11.621 Type 2 diabetes mellitus with foot ulcer (principal); L97.418 Non-pressure chronic ulcer of right heel and midfoot with other specified severity; M86.671 Other chronic osteomyelitis, right ankle and foot | CPT/HCPCS: G0277 ==

== ENCOUNTER → 2022-02-22 08:15 | Outpatient (BNVA) | payer MEDICARE, MEDICAID, SELFPAY | PROVIDERS: PCP Family Medicine | DX: E11.621 Type 2 diabetes mellitus with foot ulcer (principal); M86.671 Other chronic osteomyelitis, right ankle and foot; L97.429 Non-pressure chronic ulcer of left heel and midfoot with unspecified severity | CPT/HCPCS: G0277 ==

== ENCOUNTER → 2022-02-25 08:02 | Outpatient (BNVA) | payer MEDICARE, MEDICAID, SELFPAY | PROVIDERS: PCP Family Medicine; Visit Provider Thoracic Surgery (Cardiothoracic Vascular Surgery) | DX: L97.522 Non-pressure chronic ulcer of other part of left foot with fat layer exposed (principal); E11.621 Type 2 diabetes mellitus with foot ulcer; I96 Gangrene, not elsewhere classified; L97.412 Non-pressure chronic ulcer of right heel and midfoot with fat layer exposed; L97.411 Non-pressure chronic ulcer of right heel and midfoot limited to breakdown of skin; M86.671 Other chronic osteomyelitis, right ankle and foot | CPT/HCPCS: 11042; 97597; G0277 ==

== ENCOUNTER → 2022-02-26 08:03 | Outpatient (BNVA) | payer MEDICARE, MEDICAID, SELFPAY | PROVIDERS: PCP Family Medicine | DX: E11.621 Type 2 diabetes mellitus with foot ulcer (principal); L97.413 Non-pressure chronic ulcer of right heel and midfoot with necrosis of muscle; M86.671 Other chronic osteomyelitis, right ankle and foot | CPT/HCPCS: G0277 ==

== ENCOUNTER → 2022-02-27 08:19 | Outpatient (BNVA) | payer MEDICARE, MEDICAID, SELFPAY | PROVIDERS: PCP Family Medicine | DX: E11.621 Type 2 diabetes mellitus with foot ulcer (principal); L97.413 Non-pressure chronic ulcer of right heel and midfoot with necrosis of muscle; M86.671 Other chronic osteomyelitis, right ankle and foot | CPT/HCPCS: G0277 ==

== ENCOUNTER → 2022-02-28 08:19 | Outpatient (BNVA) | payer MEDICARE, MEDICAID, SELFPAY | PROVIDERS: PCP Family Medicine | DX: E11.621 Type 2 diabetes mellitus with foot ulcer (principal); L97.413 Non-pressure chronic ulcer of right heel and midfoot with necrosis of muscle; M86.671 Other chronic osteomyelitis, right ankle and foot | CPT/HCPCS: G0277 ==

== ENCOUNTER → 2022-03-01 07:52 | Outpatient (BNVA) | payer MEDICARE, MEDICAID, SELFPAY | PROVIDERS: PCP Family Medicine | DX: E11.621 Type 2 diabetes mellitus with foot ulcer (principal); L97.413 Non-pressure chronic ulcer of right heel and midfoot with necrosis of muscle; M86.671 Other chronic osteomyelitis, right ankle and foot | CPT/HCPCS: G0277 ==

== ENCOUNTER → 2022-03-04 08:36 | Outpatient (BNVA) | payer MEDICARE, MEDICAID, SELFPAY | PROVIDERS: PCP Family Medicine | DX: E11.621 Type 2 diabetes mellitus with foot ulcer (principal); L97.522 Non-pressure chronic ulcer of other part of left foot with fat layer exposed; L97.512 Non-pressure chronic ulcer of other part of right foot with fat layer exposed; L97.411 Non-pressure chronic ulcer of right heel and midfoot limited to breakdown of skin; I96 Gangrene, not elsewhere classified | CPT/HCPCS: 11042; 97597; G0277 ==

== ENCOUNTER → 2022-03-05 08:27 | Outpatient (BNVA) | payer MEDICARE, MEDICAID, SELFPAY | PROVIDERS: PCP Family Medicine | DX: E11.621 Type 2 diabetes mellitus with foot ulcer (principal); L97.419 Non-pressure chronic ulcer of right heel and midfoot with unspecified severity; M86.671 Other chronic osteomyelitis, right ankle and foot | CPT/HCPCS: G0277 ==

== ENCOUNTER → 2022-03-06 08:21 | Outpatient (BNVA) | payer MEDICARE, MEDICAID, SELFPAY | PROVIDERS: PCP Family Medicine | DX: E11.621 Type 2 diabetes mellitus with foot ulcer (principal); L97.419 Non-pressure chronic ulcer of right heel and midfoot with unspecified severity; M86.671 Other chronic osteomyelitis, right ankle and foot | CPT/HCPCS: G0277 ==

== ENCOUNTER → 2022-03-08 07:55 | Outpatient (BNVA) | payer MEDICARE, MEDICAID, SELFPAY | PROVIDERS: PCP Family Medicine | DX: E11.621 Type 2 diabetes mellitus with foot ulcer (principal); L97.419 Non-pressure chronic ulcer of right heel and midfoot with unspecified severity; M86.671 Other chronic osteomyelitis, right ankle and foot | CPT/HCPCS: G0277 ==

== ENCOUNTER → 2022-03-11 08:29 | Outpatient (BNVA) | payer MEDICARE, MEDICAID, SELFPAY | PROVIDERS: PCP Family Medicine | DX: E11.621 Type 2 diabetes mellitus with foot ulcer (principal); L97.413 Non-pressure chronic ulcer of right heel and midfoot with necrosis of muscle; I96 Gangrene, not elsewhere classified; L97.411 Non-pressure chronic ulcer of right heel and midfoot limited to breakdown of skin | CPT/HCPCS: 11042; G0277 ==

== ENCOUNTER → 2022-03-12 08:21 | Outpatient (BNVA) | payer MEDICARE, MEDICAID, SELFPAY | PROVIDERS: PCP Family Medicine | DX: E11.621 Type 2 diabetes mellitus with foot ulcer (principal); L97.513 Non-pressure chronic ulcer of other part of right foot with necrosis of muscle; M86.671 Other chronic osteomyelitis, right ankle and foot | CPT/HCPCS: G0277 ==

== ENCOUNTER → 2022-03-13 08:32 | Outpatient (BNVA) | payer MEDICARE, MEDICAID, SELFPAY | PROVIDERS: PCP Family Medicine | DX: E11.621 Type 2 diabetes mellitus with foot ulcer (principal); L97.413 Non-pressure chronic ulcer of right heel and midfoot with necrosis of muscle; M86.671 Other chronic osteomyelitis, right ankle and foot | CPT/HCPCS: G0277 ==

== ENCOUNTER → 2022-03-14 08:03 | Outpatient (BNVA) | payer MEDICARE, MEDICAID, SELFPAY | PROVIDERS: PCP Family Medicine | DX: E11.621 Type 2 diabetes mellitus with foot ulcer (principal); L97.523 Non-pressure chronic ulcer of other part of left foot with necrosis of muscle; M86.671 Other chronic osteomyelitis, right ankle and foot | CPT/HCPCS: G0277 ==

== ENCOUNTER → 2022-03-15 08:10 | Outpatient (BNVA) | payer MEDICARE, MEDICAID, SELFPAY | PROVIDERS: PCP Family Medicine | DX: E11.621 Type 2 diabetes mellitus with foot ulcer (principal); L97.413 Non-pressure chronic ulcer of right heel and midfoot with necrosis of muscle; M86.671 Other chronic osteomyelitis, right ankle and foot | CPT/HCPCS: G0277 ==

== ENCOUNTER → 2022-03-18 08:04 | Outpatient (BNVA) | payer MEDICARE, MEDICAID, SELFPAY | PROVIDERS: PCP Family Medicine | DX: E11.621 Type 2 diabetes mellitus with foot ulcer (principal); L97.413 Non-pressure chronic ulcer of right heel and midfoot with necrosis of muscle; I96 Gangrene, not elsewhere classified; L97.411 Non-pressure chronic ulcer of right heel and midfoot limited to breakdown of skin | CPT/HCPCS: 11042; 97597; G0277 ==

== ENCOUNTER → 2022-03-20 08:45 | Outpatient (BNVA) | payer MEDICARE, MEDICAID, SELFPAY | PROVIDERS: PCP Family Medicine | DX: E11.621 Type 2 diabetes mellitus with foot ulcer (principal); L97.413 Non-pressure chronic ulcer of right heel and midfoot with necrosis of muscle; M86.8X7 Other osteomyelitis, ankle and foot | CPT/HCPCS: G0277 ==

== ENCOUNTER → 2022-03-21 07:54 | Outpatient (BNVA) | payer MEDICARE, MEDICAID, SELFPAY | PROVIDERS: PCP Family Medicine; Visit Provider Thoracic Surgery (Cardiothoracic Vascular Surgery) | DX: E11.621 Type 2 diabetes mellitus with foot ulcer (principal); L97.416 Non-pressure chronic ulcer of right heel and midfoot with bone involvement without evidence of necrosis; M86.671 Other chronic osteomyelitis, right ankle and foot | CPT/HCPCS: G0277 ==

== ENCOUNTER → 2022-03-27 07:54 | Outpatient (BNVA) | payer MEDICARE, MEDICAID, SELFPAY | PROVIDERS: PCP Family Medicine | DX: E11.621 Type 2 diabetes mellitus with foot ulcer (principal); L97.416 Non-pressure chronic ulcer of right heel and midfoot with bone involvement without evidence of necrosis; M86.671 Other chronic osteomyelitis, right ankle and foot; L97.413 Non-pressure chronic ulcer of right heel and midfoot with necrosis of muscle; L97.411 Non-pressure chronic ulcer of right heel and midfoot limited to breakdown of skin | CPT/HCPCS: 97597; G0277 ==

== ENCOUNTER → 2022-03-29 08:40 | Outpatient (BNVA) | payer MEDICARE, MEDICAID, SELFPAY | PROVIDERS: PCP Family Medicine | DX: E11.621 Type 2 diabetes mellitus with foot ulcer (principal); L97.413 Non-pressure chronic ulcer of right heel and midfoot with necrosis of muscle; M86.671 Other chronic osteomyelitis, right ankle and foot | CPT/HCPCS: G0277 ==

== ENCOUNTER → 2022-04-03 08:19 | Outpatient (BNVA) | payer MEDICARE, MEDICAID, SELFPAY | PROVIDERS: PCP Family Medicine | DX: Z09 Encounter for follow-up examination after completed treatment for conditions other than malignant neoplasm (principal); E11.621 Type 2 diabetes mellitus with foot ulcer; L97.413 Non-pressure chronic ulcer of right heel and midfoot with necrosis of muscle; M86.671 Other chronic osteomyelitis, right ankle and foot | CPT/HCPCS: 99212; A6219; G0277 ==

== ENCOUNTER → 2022-04-08 14:06 | Outpatient (BNVA) | payer MEDICARE, MEDICAID, SELFPAY | PROVIDERS: PCP Family Medicine; Visit Provider Thoracic Surgery (Cardiothoracic Vascular Surgery) | DX: Z09 Encounter for follow-up examination after completed treatment for conditions other than malignant neoplasm (principal) | CPT/HCPCS: 99212 ==

== ENCOUNTER → 2022-04-12 10:54 | Outpatient (BNVA) | payer MEDICARE, MEDICAID, SELFPAY | PROVIDERS: PCP Family Medicine; Visit Provider Family Medicine | DX: E11.65 Type 2 diabetes mellitus with hyperglycemia (principal); Z79.4 Long term (current) use of insulin; I10 Essential (primary) hypertension; E78.5 Hyperlipidemia, unspecified | CPT/HCPCS: 80053; 83036; 85025 ==

== ENCOUNTER → 2022-06-12 13:31 | Outpatient (BNVA) | payer MEDICARE, MEDICAID, SELFPAY | PROVIDERS: PCP Family Medicine; Visit Provider Thoracic Surgery (Cardiothoracic Vascular Surgery) | DX: I96 Gangrene, not elsewhere classified (principal); L97.412 Non-pressure chronic ulcer of right heel and midfoot with fat layer exposed | CPT/HCPCS: 11042; 99213 ==

== ENCOUNTER → 2022-06-19 13:58 | Outpatient (BNVA) | payer MEDICARE, MEDICAID, SELFPAY | PROVIDERS: PCP Family Medicine; Visit Provider Thoracic Surgery (Cardiothoracic Vascular Surgery) | DX: I96 Gangrene, not elsewhere classified (principal); E11.621 Type 2 diabetes mellitus with foot ulcer; L97.412 Non-pressure chronic ulcer of right heel and midfoot with fat layer exposed | CPT/HCPCS: 97597; A6250 ==

== ENCOUNTER → 2022-06-25 13:51 | Outpatient (BNVA) | payer MEDICARE, MEDICAID, SELFPAY | PROVIDERS: PCP Family Medicine; Visit Provider Nurse Practitioner Family | DX: E11.621 Type 2 diabetes mellitus with foot ulcer (principal); L97.412 Non-pressure chronic ulcer of right heel and midfoot with fat layer exposed | CPT/HCPCS: 99213 ==

== ENCOUNTER → 2022-07-03 09:11 | Outpatient (BNVA) | payer MEDICARE, MEDICAID, SELFPAY | PROVIDERS: PCP Family Medicine; Visit Provider Thoracic Surgery (Cardiothoracic Vascular Surgery) | DX: E11.621 Type 2 diabetes mellitus with foot ulcer (principal); L97.512 Non-pressure chronic ulcer of other part of right foot with fat layer exposed | CPT/HCPCS: 99212 ==

== ENCOUNTER → 2022-07-25 07:51 | Outpatient (BNVA) | payer MEDICARE, MEDICAID, SELFPAY | PROVIDERS: PCP Family Medicine; Visit Provider Student in an Organized Health Care Education/Training Program | DX: L08.9 Local infection of the skin and subcutaneous tissue, unspecified (principal); S62.632A Displaced fracture of distal phalanx of right middle finger, initial encounter for closed fracture; E11.65 Type 2 diabetes mellitus with hyperglycemia; Z79.4 Long term (current) use of insulin | CPT/HCPCS: 99204 ==

== ENCOUNTER 2022-08-09 06:55 | Outpatient (CLI) | payer MEDICARE, MEDICAID, SELFPAY ==
--- NOTE | 2022-08-09 07:15 | MR_ITS ---
WS: [id number] MRI RIGHT HAND without CONTRAST. COMPARISON: Radiograph 08/01/2022 Multiplanar, multisequence imaging is performed without contrast. Abnormal signal involving the entire middle and distal phalanges of the third finger. Very low signal on the T1 sequences and increased on the T2 sequences. Loss of the normal DIP joint. There is fluid and small osseous fragments involving the distal articular surface in the distal phalanx. There is a large amount of soft tissue edema surrounding the third finger. Flexor tendon along the volar surface of the third finger is abnormal. Normal-sized tendon is noted t o the distal proximal phalanx of third finger. Distal to the normal tendon is increased signal in a s plit tear. On the sagittal sequence there is significant increased signal and complete loss of the te ndon near the DIP joint. No additional tears are identified. There is significant edema surrounding the third finger. MR/MR hand RT wo con* [id number] IMPRESSION: 1. Abnormal flexor tendon associated with the third finger. Beginning near the PIP joint of the third finger there is a split tear which becomes a full-thick ness tear distally at the DIP joint. Loss of the normal tendon. 2. Large amount of marrow and soft tissue edema involving the middle and dista l phalanges of the third finger. Patient has known fractures seen radiographica lly. Osteomyelitis is not excluded without contrast. May all be posttraumatic a s there are fractures also noted distally which were better visualized radiogra phically.
== END 2022-08-09 06:56 | disposition home or self-care (01) ==
LOC: RAD 06:55
PROVIDERS: PCP Family Medicine; Visit Provider Student in an Organized Health Care Education/Training Program
DX: S62.632A Displaced fracture of distal phalanx of right middle finger, initial encounter for closed fracture (principal); X58.XXXA Exposure to other specified factors, initial encounter; R60.0 Localized edema
CPT/HCPCS: 73218

== ENCOUNTER → 2022-09-02 13:03 | Outpatient (BNVA) | payer MEDICARE, MEDICAID, SELFPAY | PROVIDERS: PCP Family Medicine; Visit Provider Student in an Organized Health Care Education/Training Program | DX: M86.9 Osteomyelitis, unspecified (principal); L08.9 Local infection of the skin and subcutaneous tissue, unspecified; S62.632A Displaced fracture of distal phalanx of right middle finger, initial encounter for closed fracture; E11.8 Type 2 diabetes mellitus with unspecified complications; Z79.84 Long term (current) use of oral hypoglycemic drugs; Z79.4 Long term (current) use of insulin; X58.XXXA Exposure to other specified factors, initial encounter | CPT/HCPCS: 99214 ==

== ENCOUNTER 2022-09-09 11:49 | Day surgery (SDC) | payer MEDICARE, MEDICAID, SELFPAY ==
[2022-09-06 14:51] VITALS: BMI 36.5
--- NOTE | 2022-09-09 12:39 | ANES.PREANE2 ---
Pre-Anesthetic Assessment Height/Weight: Height 1.93 m Weight 136.078 kg O2 Del Method 09/09/22 12:15 Preop Diagnosis: Osteomyelitis Right middle finger Operation Date: 09/09/22 13:05 Proposed Procedures p right middle finger amputation at proximal joint 89551,L03.011(Right) - Montez Price DO Familial anesthetic complications: none Was Beta Amy taken within 24 hours: Yes Was Clonidine taken within 24 hours: N/A Last intake: Intake Last Liquid Date 09/09/22 Last Liquid Time 09:30 Last Solid Date 09/08/22 Last Solid Time 20:00 Social No alcohol and No tobacco Exam alert, oriented x 3, clear to auscultation bilaterally and regular rate & rhythm Airway Submandibular: within normal limits Cervical ROM: within normal limits Mallampati: Class II Dentition: chipped CV/HEM Hypertension and Peripheral Vascular Disease Chronic Renal Insufficiency Metabolic Diabetes Mellitus, Hyperlipidemia and Morbid Obesity Musc/skel Lower Back Pain and Osteoarthritis/DJD Anesthetic Plan ASA status: 3 Anesthesia: MAC Medications/Allergies Home Medications Medication Instructions Recorded Confirmed Last Taken Type amlodipine 10 mg tablet 10 mg PO DAILY 30 days #30 tabs 12/05/21 09/02/22 Unknown Rx carvedilol 6.25 mg tablet (Coreg) 6.25 mg PO BID #180 tabs 01/11/22 09/06/22 09/06/22 Rx dulaglutide 1.5 mg/0.5 mL See Rx Instructions .Route 01/11/22 09/06/22 08/30/22 Rx subcutaneous pen injector .COMPLEX #12 mL (Trulicity) empagliflozin 10 mg tablet See Rx Instructions .Route 01/11/22 09/06/22 09/06/22 Rx (Jardiance) .COMPLEX #90 tabs lorazepam 0.5 mg tablet 0.5 mg PO DAILY PRN anxiety #30 03/18/22 09/02/22 Unknown Rx tabs metformin 500 mg tablet See Rx Instructions .Route 04/09/22 09/06/22 09/06/22 Rx .COMPLEX #180 tabs rosuvastatin 10 mg tablet See Rx Instructions .Route 04/09/22 09/06/22 09/06/22 Rx .COMPLEX #90 tabs insulin glargine 100 unit/mL See Rx Instructions .Route 04/12/22 09/02/22 09/06/22 Rx subcutaneous solution (Lantus .COMPLEX #130 mL U-100 Insulin) indomethacin 50 mg capsule 50 mg PO TID #21 caps 06/04/22 09/02/22 04/30/22 Rx insulin syringe-needle U-100 1 mL #200 ea 07/24/22 09/02/22 Unknown Rx 31 gauge x 15/64 (BD Veo Insulin Syringe Ultra-Fine) lisinopril 10 mg tablet See Rx Instructions .Route 07/24/22 09/06/22 09/06/22 Rx .COMPLEX #90 tabs blood sugar diagnostic (Accu-Chek #100 ea 08/21/22 09/02/22 Unknown Rx Violeta Plus test strips) hydrochlorothiazide 25 mg tablet See Rx Instructions .Route 08/21/22 09/06/22 09/06/22 Rx .COMPLEX #30 tabs cephalexin 500 mg capsule 500 mg PO BID Finger Infection 7 09/02/22 09/06/22 09/06/22 Rx days #14 caps clopidogrel 75 mg tablet (Plavix) See Rx Instructions .Route .COMPLEX 09/06/22 09/06/22 09/02/22 History Allergies Allergy/AdvReac Type Severity Reaction Status Date / Time No Known Allergies Allergy Verified 09/02/22 13:04 [facility] Anesthesia Medical History (Updated 09/05/22 @ 06:36 by Montez Price DO) Amputation of left great toe Arthralgia of back Arthropathy of lumbar facet joint Benign essential HTN Chronic pain of both shoulders Diabetic ulcer of right foot associated with diabetes mellitus due to underlying condition, 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 Dyslipidemia Encounter for long-term use of opiate analgesic Fracture of distal phalanx of right middle finger History of amputation of toe Infection of finger Opioid contract 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 Pain in right foot Spinal stenosis, lumbar region without neurogenic claudication Uncontrolled type 2 diabetes mellitus, with long-term current use of insulin Surgical History H/O right knee surgery Hx laparoscopic cholecystectomy Hx of foot surgery Family History Unknown Diabetes Father Stroke Social History Smoking and tobacco status: former smoker Second hand smoke exposure: No Alcohol intake: never History of recent travel: No Data Anesthesia Cardiac Studies: No Data to Display
--- NOTE | 2022-09-09 12:44 | W.PM.OPSUD ---
Surgery/Procedure H&P Update DATE OF PROCEDURE: September 09, 2022 DATE H&P PERFORMED: 09/02/22 CHANGES TO PREVIOUS DOCUMENTATION: None PREOP DIAGNOSIS: Osteomyelitis Right middle finger PRIMARY INDICATION FOR PROCEDURE: Patient has osteomyelitis of the right middle finger at the middle phalanx and distal phalanx. We talked about his treatment options in detail we talked about a PIP disarticulation and that this might lose some of his MP range of motion as we will move lose FDS and FDP however he will regain some of his flexion from his intrinsics. We did offer patient a ray resection as this would completely eliminate this potentially catching or having some decreased function but ultimately through shared decision making he really would like to preserve as much of his finger as possible and we through shared decision making agreed upon a right middle finger PIP joint disarticulation. Undergo this procedure today to completely remove his osteomyelitis of the middle phalanx and distal phalanx. Patient understands agrees with current plan. All questions answered. All risk benefits complication alternatives of surgical nonsurgical treatment options were thoroughly discussed with patient he understands risk and agrees to proceed with surgery. PLANNED PROCEDURE: Operation Date: 09/09/22 13:05 Proposed Procedures p right middle finger amputation at proximal joint 86893,L03.011(Right) - Montez Price DO
[2022-09-09] MEDS: acetaminophen 1,000 MG/100 ML PIGGYBACK 400 MG IV (12:46)
[2022-09-09] MEDS: sodium chloride 0.9% 1,000 ML 30 ML IV (12:48)
[2022-09-09 12:49] LABS: Glucose Point of Care 82 mg/dL (70-110)
[2022-09-09] MEDS: ketorolac 30 mg/mL INJ IVP (12:50)
[2022-09-09] MEDS: ceFAZolin 2,000 MG in sodium chloride 0.9% (plus) 50 ML 100 MG IV (13:06)
--- NOTE | 2022-09-09 13:33 | SUR.OPER ---
Called [place] at [facility] and was instructed to send specimen to lab 1st for culture. Called micro lab and spoke with Deshaun and notified him that specimen is to go to [facility] after culture.
[2022-09-09] MEDS: ceFAZolin 1,000 mg SDV 1000 MG IRRIGATION (13:48)
[2022-09-09 14:07] VITALS: BP 88/44; PULSE 50; RESP 20; TEMP 36.4; O2SAT 93
--- NOTE | 2022-09-09 14:07 | PM.OP2 ---
Brief Operative Note Date of procedure: 09/09/22 Pre-op diagnosis: Right middle finger osteomyelitis Post-op diagnosis: same Procedure Done: Right middle finger PIP joint disarticulation Surgeon: Montez Price Estimated blood loss (mL): 3 Complications: None Post-op Plan: Patient taken to PACU in stable condition patient recovering well. Dressing on in place clean dry and intact. Patient receive appropriate discharge instructions as well as pain medication postoperatively. We will see me in the office in 2 weeks. Condition: stable Disposition: same day Coding Level of Care Code Acute Shingle Catcher for Marjorie Penny
--- NOTE | 2022-09-09 14:08 | PM.PACU ---
PACU note Narrative: Patient recovering well in PACU. Dressing on in place clean dry and intact. Patient is able to wiggle fingers. Dressing on in place limiting examination. He had brisk capillary refill of amputation stump of the right middle finger with brisk capillary refill less than 2 seconds decree sensation secondary to local anesthesia. Exam: awake Disposition: discharged
[2022-09-09 14:12] VITALS: BP 101/47; PULSE 53; RESP 18; O2SAT 99
--- NOTE | 2022-09-09 14:15 | P.OP_ITS ---
Operative Report Date of procedure: September 09, 2022 Pre-op diagnosis: Preop Diagnosis Osteomyelitis Right middle finger Post-op diagnosis: Same, right middle finger infection with middle phalanx and distal phalanx osteomyelitis Procedure done: Right middle finger PIP joint disarticulation/amputation Specimens removed/disposition: Amputated right middle finger middle phalanx and distal phalanx sent for culture and pathology Pathology: Amputated right middle finger middle phalanx and distal phalanx sent for culture and pathology Surgeon: Montez Price DO Estimated blood loss: 3 mL 16 minutes IV fluids: See anesthesia record Complications: None Findings: See operative report narrative Condition: stable Disposition: same day Brief History: Patient's been seen and worked up in the outpatient setting for chronic right middle finger wound with significant fusiform swelling that subsequently stabilized MRI of chronic wound to the right middle finger demonstrates osteomyelitis of the middle phalanx and distal phalanx. Proximal phalanx appears to be spared. Patient does have reasonably good range of motion at the MP joint however decreased range of motion at the PIP and DIP joint. We talked about his treatment options far as nonoperative or operative intervention. Talked about chronic suppression for nonoperative management as well as amputation. We talked about amputation through the PIP joint as this would remove patient's osteo of the middle and distal phalanx however we talked about this potentially having some decreased flexion of the MP joint then potentially this catching on things versus a ray resection. At this point time through shared decision making he would like to proceed with a right middle finger PIP disarticulation as he like to save as much of his finger as possible he understands if this does bother him that he can fail to a ray amputation at a later date but at this point time he would like to see how he heals and recovers with a PIP disarticulation. We talked about risk benefits complications and alternatives to surgical treatment options he understands risk for surgery and agrees to proceed all questions been answered. Procedure: Patient seen evaluated in the preoperative holding area. Consent was reviewed and signed with patient. Correct extremity was then marked. Patient was seen evaluated by the anesthesia department cleared for surgery was taken back to the operative suite. Patient was placed onto the OR table all bony prominences well-padded patient was appropriately secured to the bed. He was then placed as an armboard to the right upper extremity. A nonsterile tourniquet was applied to the right upper extremity. He underwent anesthesia per the anesthesia department. Final timeout performed. Patient received appropriate preoperative antibiotics. Patient's right upper extremity was then prepped and draped in standard orthopedic fashion Esmarch tourniquet was used exsanguinate the right upper extremity and tourniquet was insufflated to 250 mmHg. A standard fishmouth incision was made centering over the PIP joint with care to have appropriate flaps. Sharp scalpel incision was made through skin and subcutaneous tissue I mobilized full-thickness flaps. This point I transected the extensor tendon as well as flexor tendons and allowed for appropriate retraction. Next I performed a disarticulation at the PIP joint and remove the amputated finger and sent this to pathology. This point my fishmouth flaps were exposed. I then subsequently identified the neurovascular bundles. I coagulated both the digital arteries with bipolar electrocautery and then performed traction neurectomies of the digital nerves. Next I then utilized a rongeur to remove off the condyles as well as to remove the articular cartilage of the proximal phalanx to prevent any hammer head deformity. Once this was done the wound bed was thoroughly irrigated. Tourniquet was deflated. Hemos tasis was satisfactory with bipolar electrocautery. I then subsequently closed the fishmouth incision in standard fashion with interrupted nylon 4-0 suture with care to have appropriate contour and no excess skin but care was made to have no tension on my closure. Dressing was then closed with Xeroform 4 x 4's fluffs Curlex Korin wrap and an Nii wrap. Patient tolerated procedure without complications. Taken to PACU in stable condition. Disposition: Patient taken to PACU in stable condition will receive appropriate discharge structure as well as pain medication and 7-day postoperative p.o. antibiotics. We will see him in the office in 2 weeks to see how he is doing. He understands if any questions or concerns and contact the office.
[2022-09-09 14:17] VITALS: BP 114/52; PULSE 52; RESP 18; O2SAT 99
[2022-09-09 14:25] VITALS: BP 130/95; PULSE 58; RESP 18; TEMP 36.4; O2SAT 99
[2022-09-09] MEDS: HYDROcodone-acetaminophen 5-325 mg Tablet 1 TAB PO (14:44)
[2022-09-09 14:45] VITALS: BP 144/70; PULSE 52; RESP 16; TEMP 36.4; O2SAT 100
--- NOTE | 2022-09-09 15:53 | ANE.PACU2 ---
Inpatient post-anesthesia follow up: Airway intact: Yes Vital signs: Temperature 97.5 F Pulse Rate 52 Respiratory Rate 16 Blood Pressure 144/70 Pulse Oximetry 100 Oxygen Delivery Me thod Room Air Oxygen Flow Rate 6 Fraction of Inspir ed Oxygen Hydration adequate: Yes Nausea and vomiting: No Pain level: 1 Mental status: Baseline
--- NOTE | 2022-09-10 13:52 | PM.PN ---
Vitals/I&O/Wt Last Vital Signs Temp 97.5 F L 09/09/22 14:45 Pulse 52 L 09/09/22 14:45 Resp 16 09/09/22 14:45 BP 144/70 09/09/22 14:45 Pulse Ox 100 09/09/22 14:45 O2 Del Method 09/09/22 14:45 O2 Flow Rate 6 09/09/22 14:29 09/09/22 09/10/22 09/10/22 22:59 06:59 14:59 Intake Total 250 / 1400 Output Total 200 / 205 Balance 50 / 1195 Data Micro: Microbiology 09/09/22 13:31 Gram Stain - Final Finger - #1 Tissue Culture - Preliminary Attestations Medical Necessity Statement*: NA Coding Level of Care Code Acute Cytopathology Technologist for Chg Fwd Comment 75mcg fentanyl wasted by CRNAmei Hernandez and Annie Dumont.
== END 2022-09-09 15:15 | disposition home or self-care (01) ==
PROVIDERS: PCP Family Medicine; Visit Provider Student in an Organized Health Care Education/Training Program
PROC: (CPT 26951; principal; 2022-09-09 13:05)
DX: M86.8X4 Other osteomyelitis, hand (principal); I10 Essential (primary) hypertension; E11.9 Type 2 diabetes mellitus without complications; E78.5 Hyperlipidemia, unspecified; E66.01 Morbid (severe) obesity due to excess calories; Z68.36 Body mass index [BMI] 36.0-36.9, adult; Z87.891 Personal history of nicotine dependence
CPT/HCPCS: 26951; 36416; 82962; 87070; 87077; 87176; 87186; 87205; 88305; 88311; J0131; J0690; J1885; J2250; J2704; J2795; J3010; J3490; J7030

== ENCOUNTER → 2022-09-26 10:52 | Outpatient (BNVA) | payer MEDICARE, MEDICAID, SELFPAY | PROVIDERS: PCP Family Medicine; Visit Provider Student in an Organized Health Care Education/Training Program | DX: M86.141 Other acute osteomyelitis, right hand (principal); L08.9 Local infection of the skin and subcutaneous tissue, unspecified | CPT/HCPCS: 99213 ==

== ENCOUNTER → 2022-09-27 13:46 | Outpatient (BNVA) | payer MEDICARE, MEDICAID, SELFPAY | PROVIDERS: PCP Family Medicine; Visit Provider Family Medicine | DX: E78.5 Hyperlipidemia, unspecified (principal); E11.65 Type 2 diabetes mellitus with hyperglycemia; I10 Essential (primary) hypertension; Z79.4 Long term (current) use of insulin | CPT/HCPCS: 80053; 80061; 82043; 83036 ==

== ENCOUNTER → 2023-01-15 13:06 | Outpatient (BNVA) | payer MEDICARE, MEDICAID, SELFPAY | PROVIDERS: PCP Family Medicine; Visit Provider Thoracic Surgery (Cardiothoracic Vascular Surgery) | DX: I96 Gangrene, not elsewhere classified (principal); E11.622 Type 2 diabetes mellitus with other skin ulcer; L97.812 Non-pressure chronic ulcer of other part of right lower leg with fat layer exposed; L97.822 Non-pressure chronic ulcer of other part of left lower leg with fat layer exposed; E11.621 Type 2 diabetes mellitus with foot ulcer; L89.892 Pressure ulcer of other site, stage 2 | CPT/HCPCS: 11042; 97597; 99213 ==

== ENCOUNTER → 2023-01-22 14:17 | Outpatient (BNVA) | payer MEDICARE, MEDICAID, SELFPAY | PROVIDERS: PCP Family Medicine; Visit Provider Thoracic Surgery (Cardiothoracic Vascular Surgery) | DX: I96 Gangrene, not elsewhere classified (principal); E11.622 Type 2 diabetes mellitus with other skin ulcer; L97.812 Non-pressure chronic ulcer of other part of right lower leg with fat layer exposed; L97.822 Non-pressure chronic ulcer of other part of left lower leg with fat layer exposed; E11.621 Type 2 diabetes mellitus with foot ulcer; L89.892 Pressure ulcer of other site, stage 2 | CPT/HCPCS: 11042; 97597 ==

== ENCOUNTER 2023-01-25 12:57 | Outpatient (CLI) | payer MEDICARE, MEDICAID, SELFPAY ==
--- NOTE | 2023-01-25 13:00 | CTR_ITS ---
PROCEDURE INFORMATION: Exam: CTA Abdominal Aorta and Bilateral Lower Extremities (Run-off) With Contrast Exam date and time: 01/25/2023 1:47 PM Age: 62 years old Clinical indication: Condition or disease; Other: Peripheral vascular disease; Additional info: I73.9 - peripheral vascular disease, unspecified TECHNIQUE: Imaging protocol: Computed tomographic angiography of the of the abdominal aorta, pelvis and bilateral lower extremities with contrast. 3D rendering (Not supervised by radiologist): MIP and/or 3D reconstructed images were created by the technologist. Radiation optimization: All CT scans at this facility use at least one of these dose optimization techniques: automated exposure control; mA and/or kV adjustment per patient size (includes targeted exams where dose is matched to clinical indication); or iterative reconstruction. Contrast material: OMNI 350; Contrast volume: 250 ml; Contrast route: INTRAVENOUS (IV); REPORTING DATA: Count of CT and Cardiac NM exams in prior 12 months: This patient has received [address] and 0 known cardiac nuclear medicine studies in the 12 months prior to the current study. COMPARISON: CT angio abd aorta runof [id number] 12/07/2021 1:44 PM RADIATION DOSE METRICS: Total DLP (mGy-cm): 1884.26 FINDINGS: Aorta: Moderate diffuse atherosclerotic disease is present. No aortic aneurysm. No aortic dissection. Celiac trunk and mesenteric arteries: No occlusion or significant stenosis. Renal arteries: No occlusion or significant stenosis. Right iliac arteries: Patent right common iliac artery stent. Poorly opacified right external iliac artery with focal areas of mild stenosis. Poorly opacified right internal iliac artery with scattered areas of mild stenosis. Right femoral/popliteal arteries: Moderate diffuse stenosis of the patent right common femoral artery. Scattered areas of mild to severe stenosis in the right superficial femoral artery. Occluded right popliteal artery stent. Right infrapopliteal arteries: There is reconstitution of the right tibioperoneal trunk via collaterals. Patent right peroneal artery with focal area of severe stenosis in the mid segment. Poorly opacified right posterior tibial artery, with suggested occlusion of the mid to distal segment. Patent right anterior tibial artery with scattered areas of mild stenosis. Patent right plantar arteries. Patent right dorsalis pedis artery. Left iliac arteries: Patent left common iliac artery stent. Patent left external iliac artery stent. Patent left internal iliac artery with scattered areas of mild stenosis. Left femoral/popliteal arteries: Moderate diffuse stenosis of the patent left common femoral artery. Scattered areas of mild to severe stenosis in the left superficial femoral artery. Heavily calcified left popliteal artery, making evaluation difficult. The visualized segments without significant calcification appear patent. Left infrapopliteal arteries: Patent left peroneal, anterior tibial and posterior tibial arteries. Patent left plantar arteries. Patent left dorsalis pedis artery. Lungs: Streaky bibasilar atelectasis noted, right greater than left. Tiny calcified granuloma noted in the left lower lobe. No consolidation. Heart: Normal heart size. Coronary atherosclerotic calcifications seen. No pericardial effusion. Liver: No mass. Gallbladder and bile ducts: The gallbladder has been surgically removed. Pancreas: Unremarkable. No mass. No ductal dilation. Spleen: Normal. No splenomegaly. Adrenal glands: Normal. No mass. Kidneys and ureters: Symmetric enhancement of the kidneys. No hydronephrosis or nephrolithiasis. Stomach and bowel: There is diverticulosis without evidence of diverticulitis. Appendix: No evidence of appendicitis. Urinary bladder: Unremarkable. No mass. Reproductive: Unremarkable as visualized. Intraperitoneal space: Unremarkable. No free air. No significant fluid collection. Lymph nodes: Mildly enlarged reactive bilateral inguinal lymph nodes noted. Bones/joints: The right foot toes and left 1st and 2nd toes have been amputated. There is cortical irregularity involving the 1st and 2nd metatarsal heads on the right, suspicious for osteomyelitis. Soft tissues: Small fat containing umbilical and bilateral inguinal hernias noted. There is swelling of the left lower extremity and right lower leg, with focal areas of ulceration about the posterior and medial aspect of the left lower leg, medial aspect of the right lower leg, and dorsal aspect of the foot. No discrete fluid collection identified. CT/CT angio abd aorta runof [id number] IMPRESSION: Bilateral lower extremity peripheral arterial disease, as described above.
[2023-01-25 13:44] LABS: Blood Urea Nitrogen 47 mg/dL (8-23); Glomerular Filtration Rate 55.9 mL/min (90-130)
[2023-01-25] MEDS: iohexol 350 mg/mL 100 mL Btl IV ×2 (13:45→14:06)
== END 2023-01-25 12:58 | disposition home or self-care (01) ==
LOC: RAD 13:00
PROVIDERS: PCP Family Medicine; Visit Provider Thoracic Surgery (Cardiothoracic Vascular Surgery)
DX: I70.203 Unspecified atherosclerosis of native arteries of extremities, bilateral legs (principal)
CPT/HCPCS: 11042; 75635; 82565; 84520; 97597; 99213; Q9967

== ENCOUNTER → 2023-01-29 15:22 | Outpatient (BNVA) | payer MEDICARE, MEDICAID, SELFPAY | PROVIDERS: PCP Family Medicine; Visit Provider Thoracic Surgery (Cardiothoracic Vascular Surgery) | DX: E11.622 Type 2 diabetes mellitus with other skin ulcer (principal); I96 Gangrene, not elsewhere classified; L97.112 Non-pressure chronic ulcer of right thigh with fat layer exposed; E11.621 Type 2 diabetes mellitus with foot ulcer; L97.522 Non-pressure chronic ulcer of other part of left foot with fat layer exposed; L97.822 Non-pressure chronic ulcer of other part of left lower leg with fat layer exposed; L97.422 Non-pressure chronic ulcer of left heel and midfoot with fat layer exposed; L97.412 Non-pressure chronic ulcer of right heel and midfoot with fat layer exposed | CPT/HCPCS: 11042; 97597; 97598 ==

== ENCOUNTER → 2023-02-05 08:20 | Outpatient (BNVA) | payer MEDICARE, MEDICAID, SELFPAY | PROVIDERS: PCP Family Medicine; Visit Provider Thoracic Surgery (Cardiothoracic Vascular Surgery) | DX: I96 Gangrene, not elsewhere classified (principal); E11.621 Type 2 diabetes mellitus with foot ulcer; L97.422 Non-pressure chronic ulcer of left heel and midfoot with fat layer exposed; L97.412 Non-pressure chronic ulcer of right heel and midfoot with fat layer exposed; L89.892 Pressure ulcer of other site, stage 2; E11.622 Type 2 diabetes mellitus with other skin ulcer; L97.812 Non-pressure chronic ulcer of other part of right lower leg with fat layer exposed; L97.822 Non-pressure chronic ulcer of other part of left lower leg with fat layer exposed | CPT/HCPCS: 97597; A6219 ==

== ENCOUNTER → 2023-02-07 11:06 | Outpatient (BNVA) | payer MEDICARE, MEDICAID, SELFPAY | PROVIDERS: PCP Family Medicine; Visit Provider Internal Medicine | DX: I73.9 Peripheral vascular disease, unspecified (principal); I12.9 Hypertensive chronic kidney disease with stage 1 through stage 4 chronic kidney disease, or unspecified chronic kidney disease; E11.22 Type 2 diabetes mellitus with diabetic chronic kidney disease; N18.30 Chronic kidney disease, stage 3 unspecified; E11.622 Type 2 diabetes mellitus with other skin ulcer; L98.492 Non-pressure chronic ulcer of skin of other sites with fat layer exposed; Z87.891 Personal history of nicotine dependence; Z79.4 Long term (current) use of insulin; E78.5 Hyperlipidemia, unspecified | CPT/HCPCS: 99214 ==

== ENCOUNTER → 2023-02-12 09:04 | Outpatient (BNVA) | payer MEDICARE, MEDICAID, SELFPAY | PROVIDERS: PCP Family Medicine; Visit Provider Thoracic Surgery (Cardiothoracic Vascular Surgery) | DX: E11.621 Type 2 diabetes mellitus with foot ulcer (principal); L97.522 Non-pressure chronic ulcer of other part of left foot with fat layer exposed; E11.622 Type 2 diabetes mellitus with other skin ulcer; L97.822 Non-pressure chronic ulcer of other part of left lower leg with fat layer exposed; L97.422 Non-pressure chronic ulcer of left heel and midfoot with fat layer exposed; L97.412 Non-pressure chronic ulcer of right heel and midfoot with fat layer exposed | CPT/HCPCS: 11042; 97597; A6212 ==

== ENCOUNTER → 2023-02-19 14:03 | Outpatient (BNVA) | payer MEDICARE, MEDICAID, SELFPAY | PROVIDERS: PCP Family Medicine; Visit Provider Thoracic Surgery (Cardiothoracic Vascular Surgery) | DX: L89.892 Pressure ulcer of other site, stage 2 (principal); E11.621 Type 2 diabetes mellitus with foot ulcer; L97.512 Non-pressure chronic ulcer of other part of right foot with fat layer exposed; E11.622 Type 2 diabetes mellitus with other skin ulcer; L97.812 Non-pressure chronic ulcer of other part of right lower leg with fat layer exposed; L97.822 Non-pressure chronic ulcer of other part of left lower leg with fat layer exposed | CPT/HCPCS: 11042; 97597; A6220; A6250 ==

== ENCOUNTER → 2023-02-27 10:02 | Outpatient (BNVA) | payer MEDICARE, MEDICAID, SELFPAY | PROVIDERS: PCP Family Medicine; Visit Provider Family Medicine | DX: E11.65 Type 2 diabetes mellitus with hyperglycemia (principal); Z79.4 Long term (current) use of insulin; E11.22 Type 2 diabetes mellitus with diabetic chronic kidney disease; N18.30 Chronic kidney disease, stage 3 unspecified; E11.621 Type 2 diabetes mellitus with foot ulcer; L97.519 Non-pressure chronic ulcer of other part of right foot with unspecified severity; I73.9 Peripheral vascular disease, unspecified | CPT/HCPCS: 80048; 83036 ==

== ENCOUNTER → 2023-03-03 13:56 | Outpatient (BNVA) | payer MEDICARE, MEDICAID, SELFPAY | PROVIDERS: PCP Family Medicine; Visit Provider Thoracic Surgery (Cardiothoracic Vascular Surgery) | DX: E11.52 Type 2 diabetes mellitus with diabetic peripheral angiopathy with gangrene (principal); L89.892 Pressure ulcer of other site, stage 2; L97.822 Non-pressure chronic ulcer of other part of left lower leg with fat layer exposed; L97.422 Non-pressure chronic ulcer of left heel and midfoot with fat layer exposed; L97.412 Non-pressure chronic ulcer of right heel and midfoot with fat layer exposed; L97.521 Non-pressure chronic ulcer of other part of left foot limited to breakdown of skin | CPT/HCPCS: 11042; 97597 ==

== ENCOUNTER → 2023-03-10 14:24 | Outpatient (BNVA) | payer MEDICARE, MEDICAID, SELFPAY | PROVIDERS: PCP Family Medicine; Visit Provider Thoracic Surgery (Cardiothoracic Vascular Surgery) | DX: E11.52 Type 2 diabetes mellitus with diabetic peripheral angiopathy with gangrene (principal); L97.512 Non-pressure chronic ulcer of other part of right foot with fat layer exposed; L97.822 Non-pressure chronic ulcer of other part of left lower leg with fat layer exposed; L97.412 Non-pressure chronic ulcer of right heel and midfoot with fat layer exposed; L97.522 Non-pressure chronic ulcer of other part of left foot with fat layer exposed; Z09 Encounter for follow-up examination after completed treatment for conditions other than malignant neoplasm | CPT/HCPCS: 11042; 11044; 87070; 87077; 87176; 87186; 87205; 97597 ==

== ENCOUNTER → 2023-03-17 14:16 | Outpatient (BNVA) | payer MEDICARE, MEDICAID, SELFPAY | PROVIDERS: PCP Family Medicine; Visit Provider Thoracic Surgery (Cardiothoracic Vascular Surgery) | DX: E11.52 Type 2 diabetes mellitus with diabetic peripheral angiopathy with gangrene (principal); L97.524 Non-pressure chronic ulcer of other part of left foot with necrosis of bone; L97.412 Non-pressure chronic ulcer of right heel and midfoot with fat layer exposed; L97.822 Non-pressure chronic ulcer of other part of left lower leg with fat layer exposed; L89.892 Pressure ulcer of other site, stage 2 | CPT/HCPCS: 11044; 97597 ==

== ENCOUNTER → 2023-03-18 10:31 | Outpatient (BNVA) | payer MEDICARE, MEDICAID, SELFPAY | PROVIDERS: PCP Family Medicine; Visit Provider Podiatrist Foot & Ankle Surgery | DX: E11.621 Type 2 diabetes mellitus with foot ulcer (principal); L97.514 Non-pressure chronic ulcer of other part of right foot with necrosis of bone; L97.524 Non-pressure chronic ulcer of other part of left foot with necrosis of bone; E11.22 Type 2 diabetes mellitus with diabetic chronic kidney disease; N18.30 Chronic kidney disease, stage 3 unspecified; E11.65 Type 2 diabetes mellitus with hyperglycemia; Z79.4 Long term (current) use of insulin; Z79.84 Long term (current) use of oral hypoglycemic drugs | CPT/HCPCS: 11044; 73630; 87070; 87075; 87205; 99204 ==

== ENCOUNTER 2023-03-24 07:06 | Day surgery (SDC) | payer MEDICARE, MEDICAID, SELFPAY ==
[2023-03-21 12:20] VITALS: BMI 36.5
--- NOTE | 2023-03-24 06:54 | W.PM.OPSUD ---
Surgery/Procedure H&P Update DATE OF PROCEDURE: March 24, 2023 DATE H&P PERFORMED: 03/18/24 CHANGES TO PREVIOUS DOCUMENTATION: None PLANNED PROCEDURE: Operation Date: 03/24/23 08:30 Proposed Procedures p left third toe amputation and Incision and debridement down to bone right foot 29022, 76114,L97.524,L97.514(Left) - Gurmeet Davidson DPM s Incision And Drainage(Right) - Gurmeet Davidson DPM
[2023-03-24 07:38] VITALS: BP 166/69; PULSE 64; RESP 18; TEMP 37.1; O2SAT 98
[2023-03-24 07:45] LABS: Glucose Point of Care 149 mg/dL (70-110)
[2023-03-24] MEDS: sodium chloride 0.9% 1,000 ML 30 ML IV (08:00)
[2023-03-24] MEDS: ceFAZolin 3,000 MG in sodium chloride 0.9% (100 ml) 100 ML 200 MG IV (08:14)
--- NOTE | 2023-03-24 08:20 | P.ANESASSM_ITS ---
Pre-Anesthetic Assessment Height/Weight: Height 1.93 m Weight 136.078 kg Temp Pulse Resp BP Pulse Ox O2 Del Method 98.8 F 64 18 166/69 98 Room Air 03/24/23 07:38 03/24/23 07:38 03/24/23 07:38 03/24/23 07:38 03/24/23 07:38 03/24/23 07:38 Preop Diagnosis: Osteomyelitis left and right foot Operation Date: 03/24/23 08:30 Proposed Procedures p left third toe amputation and Incision and debridement down to bone right foot 17635, 62975,L97.524,L97.514(Left) - Gurmeet Davidson DPM s Incision And Drainage(Right) - Gurmeet Davidson DPM Familial anesthetic complications: none Was Beta Amy taken within 24 hours: Yes Was Clonidine taken within 24 hours: N/A Last intake: Intake Last Liquid Date 03/23/23 Last Liquid Time 23:00 Last Solid Date 03/23/23 Last Solid Time 19:00 Social No alcohol and No tobacco Exam alert, oriented x 3, clear to auscultation bilaterally and regular rate & rhythm Airway Submandibular: within normal limits Cervical ROM: within normal limits Mallampati: Class II Dentition: full CV/HEM Hypertension and Peripheral Vascular Disease Chronic Renal Insufficiency Metabolic Diabetes Mellitus, Hyperlipidemia and Morbid Obesity [facility] [place] Lower Back Pain and Osteoarthritis/DJD Chronic pain/opioid Anesthetic Plan ASA status: 3 Anesthesia: Choice Medications/Allergies Home Medications Medication Instructions Recorded Confirmed Last Taken Type amlodipine 10 mg tablet 10 mg PO DAILY 30 days #30 tabs 12/05/21 03/21/23 03/20/23 Rx indomethacin 50 mg capsule 50 mg PO TID #21 caps 06/04/22 03/21/23 04/30/22 Rx insulin syringe-needle U-100 1 mL #200 ea 07/24/22 03/18/23 Unknown Rx 31 gauge x 15/64 (BD Veo Insulin Syringe Ultra-Fine) carvedilol 6.25 mg tablet (Coreg) 6.25 mg PO BID #180 tabs 09/27/22 03/21/23 03/21/23 Rx lisinopril 10 mg tablet See Rx Instructions .Route 09/27/22 03/21/23 03/20/23 Rx .COMPLEX #90 tabs rosuvastatin 10 mg tablet See Rx Instructions .Route 09/27/22 03/21/23 03/21/23 Rx .COMPLEX #90 tabs metformin 500 mg tablet See Rx Instructions .Route 12/23/22 03/21/23 03/23/23 Rx .COMPLEX #180 tabs hydrochlorothiazide 25 mg tablet See Rx Instructions .Route 01/09/23 03/21/23 Unknown Rx .COMPLEX #90 tabs diabetic shoes #1 ea 01/30/23 03/18/23 Unknown Rx insulin syringe-needle U-100 1 mL #200 ea 02/10/23 03/18/23 Unknown Rx 31 gauge x 5/16 (BD Insulin Syringe Ultra-Fine) sulfamethoxazole 800 1 tab PO BID #14 tabs 03/03/23 03/21/23 Unknown Rx mg-trimethoprim 160 mg tablet (Bactrim DS) blood sugar diagnostic (Accu-Chek #100 ea 03/12/23 03/18/23 Unknown Rx Violeta Plus test strips) dulaglutide 3 mg/0.5 mL See Rx Instructions .Route 03/12/23 03/21/23 03/21/23 Rx subcutaneous pen injector .COMPLEX #4 mL (Trulicity) levofloxacin 500 mg tablet 500 mg PO DAILY #14 tabs 03/12/23 03/21/23 03/20/23 Rx aspirin 325 mg tablet 325 mg PO DAILY 03/21/23 03/21/23 03/23/23 History clopidogrel 75 mg tablet See Rx Instructions .Route 03/21/23 Unknown Rx .COMPLEX #90 tabs insulin glargine 100 unit/mL 60 unit SUBCUT BID 03/21/23 03/21/23 03/23/23 History subcutaneous solution (Lantus U-100 Insulin) Allergies Allergy/AdvReac Type Severity Reaction Status Date / Time No Known Allergies Allergy Verified 03/18/23 10:41 [facility] Anesthesia Medical History Amputation of left great toe Arthralgia of back Arthropathy of lumbar facet joint Benign essential HTN Chronic pain of both shoulders Diabetic ulcer of right foot associated with diabetes mellitus due to underlying condition, 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 Dyslipidemia Encounter for long-term use of opiate analgesic Fracture of distal phalanx of right middle finger History of amputation of toe Infection of finger Opioid contract 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 Pain in right foot Spinal stenosis, lumbar region without neurogenic claudication Uncontrolled type 2 diabetes mellitus, with long-term current use of insulin Surgical History H/O right knee surgery Hx laparoscopic cholecystectomy Hx of foot surgery Family History Unknown Diabetes Father Stroke Social History Smoking and tobacco status: former smoker Second hand smoke exposure: No Alcohol intake: never Substance/Drug Use: never Data Anesthesia Cardiac Studies: No Data to Display
[2023-03-24] MEDS: lidocaine 1% INJ 10 mL (per mL) 20 ML INJECTION (08:35)
--- NOTE | 2023-03-24 09:10 | PM.OP ---
Operative Report Date of procedure: March 24, 2023 Pre-op diagnosis: Osteomyelitis left third toe Osteomyelitis right fourth metatarsal Post-op diagnosis: Same Procedure done: Left third toe amputation. CPT code 14889 Incision down to bone cortex right fourth metatarsa. CPT code 35338 Implants: 4-0 nylon Specimens removed/disposition: Bone from right fourth metatarsal sent to microbiology for Gram stain, culture and sensitivity. Pathology: Left third toe sent to pathology for permanent Surgeon: Gurmeet Davidson D.P.M. Supervisor Reclamation: Leonela Estimated blood loss: 5 22 total IV fluids: None Urine output: None Complications: None Brief History: Patient is requesting surgical intervention.? Planning on left third toe amputation and incision and debridement down to bone right foot.? He states that he has to remain active and that his activity level as he is aware of the is causing further harm to his feet.? I encouraged decreased activities, resting and elevating.? I advised him that continuation of weightbearing in the presence of wounds with neuropathy and diabetes puts him at risk for amputation of leg, life-threatening infections and even . Left third toe amputation and incision and debridement down to bone of right foot scheduled Friday, March 24, 2023 outpatient.? I reviewed at length with the patient, the risks, potential complications, benefits, alternatives, expectations, and typical outcomes associated with the surgery. The risks and potential complications were explained in detail, including but not limited to infection, wound dehiscence or soft tissue complications, bleeding and hematoma, chronic edema, neuritis or nerve damage producing numbness or chronic pain, CRPS, failure to relieve pain or worsening pain, thick / painful / unsightly scar, limited motion / stiffness, malposition, delayed union, malunion, or nonunion, fracture, reaction to implants, anesthetic complications, venous thromboembolism, and deformity recurrence.? I discussed the notion of no regrets with the patient as it pertains to complications and outcomes. The patient seemed to understand the nature of the proposed care and required convalescence. They asked appropriate questions, answered to their satisfaction. They are aware no guarantees can be made as to a satisfactory outcome and they understand there may be other possible unforeseen complications or outcomes not listed here that will be treated accordingly if they arise. There were no written or implied guarantees given to the patient. They gave informed consent to proceed. Procedure: Under mild sedation the patient was brought to the operating room and remained on the gurney in supine position. A timeout was performed. Anesthesia was then administered by the anesthesia service. Local anesthesia was injected by myself consisting of 20 cc of one-to-one mixture 1% lidocaine and 0.5% Marcaine plain in a left third ray block fashion and a right fifth ray block fashion. Well-padded pneumatic tourniquet was applied to the left and right ankle. Left leg was elevated and tourniquet was inflated to 250 mmHg. Attention was directed the left third toe where a proximal phalanx bone was protruding out of the base of the wound, significant devitalized tissue distally at the distal half of the left third toe appeared nonviable. A transverse fishmouth incision was performed encompassing the base of the left third toe which was sharply disarticulated through the metatarsal phalangeal joint. Under traction extensor and flexor tendons were transected. The toe was passed from the operative field and sent to pathology for gross anatomic review. The incision was irrigated with copious amounts of serous and solution. Bleeders were ligated and cauterized as necessary. This was closed with 4-0 nylon. Appeared to have viable skin margins with viable soft tissue at the level of the amputation. Skin margins were bleeding. The amputation site was dressed with Adaptic, sterile 4 x 4's, Kerlix and Nii wrap followed by postop shoe. Attention was then directed to the plantar aspect of the right foot where Sub fourth metatarsal head a wound full-thickness was appreciated with bone visualized, this was the inferior aspect of the right fourth metatarsal. Sharp incision was performed down to bone cortex which was sent to microbiology for Gram stain, culture and sensitivity as a bone culture. The wound was debrided sharply with pickups and a #15 blade at the devitalized tissue. Utilizing a sagittal saw incision of the fourth metatarsal distal diaphyseal juncture was performed and the head of the first metatarsal was passed from operative field to microbiology. The incision was irrigated with copious amounts of sterile skin solution. Wound was dressed with saline wet-to-dry. Postdebridement wound measurements 1.3 cm x 1.5 cm x 0.5 cm. Was dressed with saline wet-to-dry, Kerlix and Nii wrap followed by offloading via cam boot. Advised patient to remain nonweightbearing to right lower extremity and limited weightbearing with postop shoe to the left. Is to elevate both feet while resting. Prescription for Levaquin 750 once daily for 14 days. May change once cultures yield further information. Recommended patient to continue to keep his wound care clinic appointments for continuation of wound care to his right foot. He is neck scheduled to see them on 03/26/2023.
[2023-03-24 09:11] VITALS: BP 126/46; PULSE 60; RESP 12; TEMP 36.6; O2SAT 98
--- NOTE | 2023-03-24 09:11 | PC.NURSE ---
Pt arrived to PACU, awake, A&Ox3, O2 at 6L/min via simple mask in place. Dressings to bilateral feet C/D/I, able to move both feet. FOB elevated.
[2023-03-24 09:16] VITALS: BP 130/52; PULSE 60; RESP 16; O2SAT 98
[2023-03-24 09:21] VITALS: BP 135/54; PULSE 59; RESP 18; O2SAT 97
[2023-03-24 09:24] LABS: Glucose Point of Care 162 mg/dL (70-110)
[2023-03-24 09:26] VITALS: BP 123/47; PULSE 59; RESP 17; TEMP 36.3; O2SAT 97
[2023-03-24 10:00] VITALS: BP 133/57; PULSE 62; RESP 18; TEMP 36.3; O2SAT 98
--- NOTE | 2023-03-24 10:25 | ANE.PACU2 ---
Inpatient post-anesthesia follow up: Airway intact: Yes Vital signs: Temperature 97.3 F Pulse Rate 59 Respiratory Rate 17 Blood Pressure 123/47 Pulse Oximetry 97 Oxygen Delivery Me thod Room Air Oxygen Flow Rate 6 Fraction of Inspir ed Oxygen Hydration adequate: Yes Nausea and vomiting: No Pain level: 1 Mental status: Baseline
== END 2023-03-24 10:15 | disposition home or self-care (01) ==
PROVIDERS: PCP Family Medicine; Visit Provider Podiatrist Foot & Ankle Surgery
PROC: (CPT 28005; principal; 2023-03-24 08:20)
PROC: (CPT 28005; 2023-03-24 08:20)
DX: M86.172 Other acute osteomyelitis, left ankle and foot (principal); M86.171 Other acute osteomyelitis, right ankle and foot; E11.22 Type 2 diabetes mellitus with diabetic chronic kidney disease; I12.9 Hypertensive chronic kidney disease with stage 1 through stage 4 chronic kidney disease, or unspecified chronic kidney disease; E11.621 Type 2 diabetes mellitus with foot ulcer; N18.30 Chronic kidney disease, stage 3 unspecified; Z79.4 Long term (current) use of insulin; Z79.84 Long term (current) use of oral hypoglycemic drugs; Z79.02 Long term (current) use of antithrombotics/antiplatelets; E11.52 Type 2 diabetes mellitus with diabetic peripheral angiopathy with gangrene; I96 Gangrene, not elsewhere classified; E11.40 Type 2 diabetes mellitus with diabetic neuropathy, unspecified; L97.524 Non-pressure chronic ulcer of other part of left foot with necrosis of bone; L97.516 Non-pressure chronic ulcer of other part of right foot with bone involvement without evidence of necrosis
CPT/HCPCS: 28005; 28820; 36416; 82962; 87070; 87077; 87176; 87186; 87205; 88305; 88311; J1100; J2250; J2704; J3010; J3490; J7030

== ENCOUNTER → 2023-03-26 15:48 | Outpatient (BNVA) | payer MEDICARE, MEDICAID, SELFPAY | PROVIDERS: PCP Family Medicine; Visit Provider Thoracic Surgery (Cardiothoracic Vascular Surgery) | DX: E11.52 Type 2 diabetes mellitus with diabetic peripheral angiopathy with gangrene (principal); L89.892 Pressure ulcer of other site, stage 2; L97.822 Non-pressure chronic ulcer of other part of left lower leg with fat layer exposed; L97.412 Non-pressure chronic ulcer of right heel and midfoot with fat layer exposed; Z09 Encounter for follow-up examination after completed treatment for conditions other than malignant neoplasm | CPT/HCPCS: 11042; 97597 ==

== ENCOUNTER → 2023-04-02 14:57 | Outpatient (BNVA) | payer MEDICARE, MEDICAID, SELFPAY | PROVIDERS: PCP Family Medicine; Visit Provider Thoracic Surgery (Cardiothoracic Vascular Surgery) | DX: E11.52 Type 2 diabetes mellitus with diabetic peripheral angiopathy with gangrene (principal); L97.512 Non-pressure chronic ulcer of other part of right foot with fat layer exposed; L97.412 Non-pressure chronic ulcer of right heel and midfoot with fat layer exposed; Z09 Encounter for follow-up examination after completed treatment for conditions other than malignant neoplasm; E11.22 Type 2 diabetes mellitus with diabetic chronic kidney disease; N18.30 Chronic kidney disease, stage 3 unspecified; E11.621 Type 2 diabetes mellitus with foot ulcer; L97.524 Non-pressure chronic ulcer of other part of left foot with necrosis of bone; E11.65 Type 2 diabetes mellitus with hyperglycemia; Z79.4 Long term (current) use of insulin; L97.514 Non-pressure chronic ulcer of other part of right foot with necrosis of bone | CPT/HCPCS: 11042; 97597; 99214 ==

== ENCOUNTER → 2023-04-09 10:58 | Outpatient (BNVA) | payer MEDICARE, MEDICAID, SELFPAY | PROVIDERS: PCP Family Medicine; Visit Provider Thoracic Surgery (Cardiothoracic Vascular Surgery) | DX: E11.52 Type 2 diabetes mellitus with diabetic peripheral angiopathy with gangrene (principal); L97.412 Non-pressure chronic ulcer of right heel and midfoot with fat layer exposed; L89.892 Pressure ulcer of other site, stage 2 | CPT/HCPCS: 11042 ==

== ENCOUNTER → 2023-04-16 14:14 | Outpatient (BNVA) | payer MEDICARE, MEDICAID, SELFPAY | PROVIDERS: PCP Family Medicine; Visit Provider Thoracic Surgery (Cardiothoracic Vascular Surgery) | DX: E11.52 Type 2 diabetes mellitus with diabetic peripheral angiopathy with gangrene (principal); L89.892 Pressure ulcer of other site, stage 2; L97.412 Non-pressure chronic ulcer of right heel and midfoot with fat layer exposed | CPT/HCPCS: 11042; 97597 ==

== ENCOUNTER → 2023-04-17 15:36 | Outpatient (BNVA) | payer MEDICARE, MEDICAID, SELFPAY | PROVIDERS: PCP Family Medicine; Visit Provider Podiatrist Foot & Ankle Surgery | DX: E11.65 Type 2 diabetes mellitus with hyperglycemia (principal); Z79.4 Long term (current) use of insulin; L97.524 Non-pressure chronic ulcer of other part of left foot with necrosis of bone; L97.514 Non-pressure chronic ulcer of other part of right foot with necrosis of bone; E11.621 Type 2 diabetes mellitus with foot ulcer; Z79.84 Long term (current) use of oral hypoglycemic drugs | CPT/HCPCS: 99213 ==

== ENCOUNTER → 2023-04-23 14:03 | Outpatient (BNVA) | payer MEDICARE, MEDICAID, SELFPAY | PROVIDERS: PCP Family Medicine; Visit Provider Thoracic Surgery (Cardiothoracic Vascular Surgery) | DX: E11.52 Type 2 diabetes mellitus with diabetic peripheral angiopathy with gangrene (principal); L89.892 Pressure ulcer of other site, stage 2 | CPT/HCPCS: 11042; 97597 ==

== ENCOUNTER → 2023-04-30 15:14 | Outpatient (BNVA) | payer MEDICARE, MEDICAID, SELFPAY | PROVIDERS: PCP Family Medicine; Visit Provider Thoracic Surgery (Cardiothoracic Vascular Surgery) | DX: E11.52 Type 2 diabetes mellitus with diabetic peripheral angiopathy with gangrene (principal); L97.512 Non-pressure chronic ulcer of other part of right foot with fat layer exposed | CPT/HCPCS: 11042; 97597; A6021 ==

== ENCOUNTER → 2023-05-07 13:12 | Outpatient (BNVA) | payer MEDICARE, MEDICAID, SELFPAY | PROVIDERS: PCP Family Medicine; Visit Provider Thoracic Surgery (Cardiothoracic Vascular Surgery) | DX: E11.52 Type 2 diabetes mellitus with diabetic peripheral angiopathy with gangrene (principal); L89.892 Pressure ulcer of other site, stage 2; L97.412 Non-pressure chronic ulcer of right heel and midfoot with fat layer exposed | CPT/HCPCS: 11042; 97597; A6021 ==

== ENCOUNTER → 2023-05-14 15:06 | Outpatient (BNVA) | payer MEDICARE, MEDICAID, SELFPAY | PROVIDERS: PCP Family Medicine; Visit Provider Thoracic Surgery (Cardiothoracic Vascular Surgery) | DX: E11.52 Type 2 diabetes mellitus with diabetic peripheral angiopathy with gangrene (principal); L89.892 Pressure ulcer of other site, stage 2 | CPT/HCPCS: 11042; 97597; A6021 ==

== ENCOUNTER → 2023-05-21 15:49 | Outpatient (BNVA) | payer MEDICARE, MEDICAID, SELFPAY | PROVIDERS: PCP Family Medicine; Visit Provider Thoracic Surgery (Cardiothoracic Vascular Surgery) | DX: E11.52 Type 2 diabetes mellitus with diabetic peripheral angiopathy with gangrene (principal); L89.892 Pressure ulcer of other site, stage 2; L97.412 Non-pressure chronic ulcer of right heel and midfoot with fat layer exposed | CPT/HCPCS: 97597; A6021 ==

== ENCOUNTER → 2023-05-28 15:55 | Outpatient (BNVA) | payer MEDICARE, MEDICAID, SELFPAY | PROVIDERS: PCP Family Medicine; Visit Provider Thoracic Surgery (Cardiothoracic Vascular Surgery) | DX: E11.52 Type 2 diabetes mellitus with diabetic peripheral angiopathy with gangrene (principal); L89.892 Pressure ulcer of other site, stage 2; L97.412 Non-pressure chronic ulcer of right heel and midfoot with fat layer exposed | CPT/HCPCS: 97597; A6021 ==

== ENCOUNTER → 2023-05-29 10:39 | Outpatient (BNVA) | payer MEDICARE, MEDICAID, SELFPAY | PROVIDERS: PCP Family Medicine; Visit Provider Family Medicine | DX: E11.65 Type 2 diabetes mellitus with hyperglycemia (principal); Z79.4 Long term (current) use of insulin | CPT/HCPCS: 80053; 83036 ==

== ENCOUNTER → 2023-06-04 16:11 | Outpatient (BNVA) | payer MEDICARE, MEDICAID, SELFPAY | PROVIDERS: PCP Family Medicine; Visit Provider Thoracic Surgery (Cardiothoracic Vascular Surgery) | DX: E11.52 Type 2 diabetes mellitus with diabetic peripheral angiopathy with gangrene (principal); L89.892 Pressure ulcer of other site, stage 2; L97.412 Non-pressure chronic ulcer of right heel and midfoot with fat layer exposed | CPT/HCPCS: 97597; A6021 ==

== ENCOUNTER → 2023-06-11 09:00 | Outpatient (BNVA) | payer MEDICARE, MEDICAID, SELFPAY | PROVIDERS: PCP Family Medicine; Visit Provider Nurse Practitioner Family | DX: E11.52 Type 2 diabetes mellitus with diabetic peripheral angiopathy with gangrene (principal); L89.892 Pressure ulcer of other site, stage 2; Z09 Encounter for follow-up examination after completed treatment for conditions other than malignant neoplasm | CPT/HCPCS: 97597; A6021; A6219 ==

== ENCOUNTER → 2023-06-18 13:10 | Outpatient (BNVA) | payer MEDICARE, MEDICAID, SELFPAY | PROVIDERS: PCP Family Medicine; Visit Provider Thoracic Surgery (Cardiothoracic Vascular Surgery) | DX: E11.52 Type 2 diabetes mellitus with diabetic peripheral angiopathy with gangrene (principal); L89.892 Pressure ulcer of other site, stage 2 | CPT/HCPCS: 97597 ==

== ENCOUNTER → 2023-06-25 13:00 | Outpatient (BNVA) | payer MEDICARE, MEDICAID, SELFPAY | PROVIDERS: PCP Family Medicine; Visit Provider Thoracic Surgery (Cardiothoracic Vascular Surgery) | DX: Z09 Encounter for follow-up examination after completed treatment for conditions other than malignant neoplasm (principal); Z87.2 Personal history of diseases of the skin and subcutaneous tissue | CPT/HCPCS: 99212 ==

== ENCOUNTER → 2023-07-23 08:14 | Outpatient (BNVA) | payer MEDICARE, MEDICAID, SELFPAY | PROVIDERS: PCP Family Medicine; Visit Provider Thoracic Surgery (Cardiothoracic Vascular Surgery) | DX: I96 Gangrene, not elsewhere classified (principal); I87.2 Venous insufficiency (chronic) (peripheral); L97.821 Non-pressure chronic ulcer of other part of left lower leg limited to breakdown of skin; L97.811 Non-pressure chronic ulcer of other part of right lower leg limited to breakdown of skin; L97.512 Non-pressure chronic ulcer of other part of right foot with fat layer exposed | CPT/HCPCS: 97597; 97598; A6250 ==

== ENCOUNTER → 2023-07-30 08:11 | Outpatient (BNVA) | payer MEDICARE, MEDICAID, SELFPAY | PROVIDERS: PCP Family Medicine; Visit Provider Thoracic Surgery (Cardiothoracic Vascular Surgery) | DX: I96 Gangrene, not elsewhere classified (principal); I87.2 Venous insufficiency (chronic) (peripheral); L97.821 Non-pressure chronic ulcer of other part of left lower leg limited to breakdown of skin; L97.811 Non-pressure chronic ulcer of other part of right lower leg limited to breakdown of skin; E11.621 Type 2 diabetes mellitus with foot ulcer; L97.411 Non-pressure chronic ulcer of right heel and midfoot limited to breakdown of skin; Z09 Encounter for follow-up examination after completed treatment for conditions other than malignant neoplasm | CPT/HCPCS: 97597 ==

== ENCOUNTER → 2023-07-31 14:29 | Outpatient (BNVA) | payer MEDICARE, MEDICAID, SELFPAY | PROVIDERS: PCP Family Medicine; Visit Provider Nurse Practitioner Family | DX: M25.511 Pain in right shoulder (principal) | CPT/HCPCS: 73030 ==

== ENCOUNTER 2023-08-03 22:43 | Inpatient (IN) | payer MEDICARE, MEDICAID, SELFPAY ==
[2023-08-03 22:44] VITALS: BP 150/88; PULSE 101; RESP 27; TEMP 36.7; O2SAT 78; BMI 38.5
--- NOTE | 2023-08-03 22:55 | ECG_ITS ---
[facility] [place] Date: 2023-08-03 Pat Name: Frank Estes Department: Room: Gender: Male Home Health Travel Pt: : 1960 Requested By: Fanta Sahu Order Number: [id number] Celsa MD: Nakia King M.D. Measurements Intervals [place] Rate: 94 P: 48 IA: 169 QRS: -18 QRSD: 106 T: 81 QT: 341 QTc: 427 Interpretive Statements SINUS RHYTHM POSSIBLE LEFT ATRIAL ENLARGEMENT [-0.1mV P-WAVE IN V1/V2] INCOMPLETE RIGHT BUNDLE BRANCH BLOCK [90+ ms QRS DURATION, TERMINAL R IN V1/V2, 40+ ms S IN I/aVL/V4/V5/V6] NONSPECIFIC ST & T-WAVE ABNORMALITY Compared to ECG 02/01/2022 12:47:46 Incomplete right bundle-branch block now present Sinus bradycardia no longer present Right ventricular hypertrophy no longer present T-wave abnormality still present Electronically Signed On 08-04-2023 8:09:16 [employer] by Nakia King M.D. [id number]
--- NOTE | 2023-08-03 22:55 | XRR_ITS ---
PROCEDURE INFORMATION: Exam: XR Chest Exam date and time: 08/03/2023 11:13 PM Age: 62 years old Clinical indication: Cough and shortness of breath; Patient HX: Weakness; SOB; Upper respiratory infection TECHNIQUE: Imaging protocol: Radiologic exam of the chest. Views: 1 view. COMPARISON: CR XR chest 2V* [id number] 02/01/2022 1:53 PM FINDINGS: Limitations: Exam sensitivity and specificity is somewhat limited by technique and patient body habitus. Lungs: Low lung volumes accentuate bronchovascular markings and cardiac silhouette. Bilateral hazy perihilar opacities and prominence of the pulmonary vasculature. Pleural spaces: No pleural effusion. No pneumothorax. Heart/Mediastinum: No cardiomegaly. Bones/joints: No acute fracture. XR/XR chest 1V portable [id number] IMPRESSION: Bilateral perihilar opacities and prominence of the pulmonary vasculature, this finding is likely at least partially related to low lung volumes and technique however these findings are also associated with changes of fluid overload and/or CHF. Correlate and follow-up as clinically indicated.
[2023-08-03 22:56] VITALS: BP 150/88; PULSE 96; RESP 22; O2SAT 92
--- NOTE | 2023-08-03 22:56 | ED_ITS ---
Documented by User: TORO Mcnamara 08/04/23 09:01 HPI - Weakness General: Chief complaint: General Medical Stated complaint: high blood sugars Time Seen by Provider: 08/03/23 22:44 Source: patient Mode of arrival: EMS Limitations: no limitations History of Present Illness: Patient is a 62-year-old male who presents to ED today via EMS for evaluation of weakness and high blood sugars.EMS states they were called earlier today to the patient's home but when they arrived he refused ambulance transportation. He states later that day he contacted them again with concerns of worsening weakness. EMS states upon arrival blood sugars were over 400s. Patient states he is a known diabetic. EMS states patient's home was essentially hoarder status with one very small walk way. Patient reportedly very rarely ever leaves his chair. EMS was not able to get a stretcher or wheelchair through his house so he was required to walk to the ambulance. While doing this, EMS states patient seemed extremely short of breath. Upon arrival to the ED he does not endorse any specific complaints to myself-only that he needs to urinate and then shortly later urinates on himself. He is clearly unkept, odorous and chronically ill appearing. MD Complaint: generalized weakness Onset (ago): day(s) Duration: constant Location: generalized Migration: none Relieving factors: none Exacerbating factors: none Associated symptoms: Reports other (elevated blood sugars); Denies chest pain, chills, confusion, dysuria, fever(s), headache(s), nausea, syncope or vomiting Review of Systems Const: Reports: other (generalized weakness); Denies: fever(s), chills, body aches, fatigue or malaise Eyes: Denies: change in vision or blurry vision Card: Reports: dyspnea on exertion; Denies: chest pain, palpitations, irregular heart rhythm, lightheadedness or syncope Resp: Denies: dyspnea, productive cough, non-productive cough, wheezing, stridor, pain on inspiration, change in phlegm color, hemoptysis or chest congestion GI: Denies: abdominal pain, nausea, vomiting, heartburn or diarrhea : Denies: flank pain, difficulty urinating, dysuria, urinary frequency, urinary urgency or urinary hesitancy Musc: Denies: neck pain, back pain, extremity pain, extremity swelling or joint pain Skin/Breast: Denies: rash Neuro: Denies: headache(s), numbness in extremities, sensory changes, dizziness or confusion PFSH ED PFSH: Medical History (Updated 08/04/23 @ 05:25 by Geovanni Espinoza MD) Amputation of left great toe Arthralgia of back Arthropathy of lumbar facet joint Benign essential HTN Chronic pain of both shoulders Diabetic ulcer of right foot associated with diabetes mellitus due to underlying condition, 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 Dyslipidemia Encounter for long-term use of opiate analgesic Fracture of distal phalanx of right middle finger History of amputation of toe Infection of finger Opioid contract 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 Pain in right foot Spinal stenosis, lumbar region without neurogenic claudication Uncontrolled type 2 diabetes mellitus, with long-term current use of insulin Surgical History H/O right knee surgery Hx laparoscopic cholecystectomy Hx of foot surgery Family History Unknown Diabetes Father Stroke Social History Smoking and tobacco/nicotine status: former use of tobacco/nicotine Second hand smoke exposure: No Alcohol intake: never Substance/Drug Use: never Physical Exam Const: COMMON NORMALS: patient oriented x3, no limitations and alert GENERAL APPEARANCE: cooperative NUTRITIONAL APPEARANCE: obese ORIENTATION/CONSCIOUSNESS: Yes awake, Yes oriented to person, Yes oriented to place and Yes oriented to time OTHER: appears short of breath HENMT: COMMON NORMALS: normocephalic and atraumatic HEAD & SCALP: normal to inspection, normocephalic and atraumatic FACE & SINUS: normal facial exam Eye: GENERAL EYE: appearance normal, both eyes and all related structures Neck/C-Spine: COMMON NORMALS: full ROM, no lymphadenopathy and no meningeal signs Chest: COMMONS NORMALS: normal inspection of the chest Resp: EFFORT & INSPECTION: Yes tachypneic and Yes labored AUSCULTATION: rhonchi Cardio: COMMON NORMALS: regular rate and regular rhythm RATE: regular rate RHYTHM: regular rhythm GI: COMMON NORMALS: Normal to inspection, nondistended, normoactive bowel sounds present, Soft to palpation and non-tender PALPATION: Yes Soft to palpation : COMMON NORMALS: Yes no CVA tenderness BLADDER/KIDNEY EXAM: Yes no CVA tenderness OTHER: normal appearing genitalia-urine soaked underwear/pants Back/Pelvis: COMMON NORMALS: no CVA tenderness, thoracic and lumbar spine normal to inspection, no thoracic nor lumbar tenderness and thoraco-lumbar ROM normal Extremity: COMMON NORMALS: capillary refill normal and no calf tenderness NARRATIVE EXTREMITY EXAM: dressed wounds to bilateral LE from wound care GENERAL: Yes normal exam except as noted and Yes edema Neuro: TOY COMA SCALE: document GCS findings [place] coma scale eye opening: Spontaneous Toy coma scale verbal response: Orientated [place] coma scale motor response: Obey commands [place] coma scale total score: 15 COMMON NORMALS: patient oriented x3, moves all extremities, no focal motor deficits and no sensory deficits noted SENSORIUM/ORIENTATION: Yes alert, Yes oriented to person, Yes oriented to place and Yes oriented to time MENINGEAL SIGNS: Yes no meningeal signs Skin: COMMON NORMALS: no rashes or lesions noted GENERAL SKIN EXAM: no rashes or lesions noted Course ED course: Patient case discussed with Dr. Kaur shortly after his arrival-he agrees with current work up ordered and the eventual need for admission. He arrived satting at 78% and was placed on 4-5L O2 and later a nonrebreather. I re-examined patient shortly after and he is now much more confused. I suspect hypercapnic respiratory failure-respiratory in room now obtaining ABG. CXR showing fluid overload. All of labs pending. I will transfer care to Dr. Kaur. He most likely is going to need bipap. ES Vital Signs: Vital signs: Vital Signs Temperature 98.1 F 08/03/23 22:44 Pulse Rate 60 08/04/23 08:00 Respiratory Rate 17 08/04/23 08:00 Blood Pressure 117/55 08/04/23 05:10 Pulse Oximetry 97 08/04/23 08:00 Oxygen Delivery Me thod BiPAP 08/04/23 08:00 Oxygen Flow Rate 50 08/04/23 02:29 Fraction of Inspir ed Oxygen 40 08/04/23 07:59 MDM - Weakness Lab Data 08/04/23 02:24 08/03/23 23:30 Radiology Impressions Chest X-Ray 08/03/23 22:55 IMPRESSION: Bilateral perihilar opacities and prominence of the pulmonary vasculature, this finding is likely at least partially related to low lung volumes and technique however these findings are also associated with changes of fluid overload and/or CHF. Correlate and follow-up as clinically indicated. Chest/Abdomen/Pelvis CT 08/04/23 02:15 IMPRESSION: 1. Positive for pulmonary embolus to the right lower lobe hilar and segmental pulmonary arteries (8/246; 12/69; 10/61). 2. Mild left ventricular strain. 3. Bibasilar dependent linear opacities that may represent atelectasis. In the appropriate clinical setting, these could represent pneumonia. 4. Small bilateral pleural fluid collections. IMPRESSION: 1. Wall thickening of multiple bowel loops consistent with infectious, inflammatory or ischemic enteritis. Underdistension may present a similar picture. 2. Bladder wall thickening suggesting cystitis, incomplete distention or chronic outflow obstruction. 3. Hepatomegaly. 4. Atherosclerotic disease with kissing stents of both common iliac arteries extending to the aortic bifurcation. ADDENDUM: 08/04/23511 THIS REPORT CONTAINS FINDINGS THAT MAY BE CRITICAL TO PATIENT CARE. The findings were verbally communicated via telephone conference with Dr. Espinoza at 5:10 AM COLLECTION ADMINISTRATOR on 08/04/2023. The findings were acknowledged and understood. Laboratory Results WBC 33.67 10^3/uL (3.29-11.43) H* 08/03/23 23:30 RBC 5.07 10^6/uL (3.85-5.65) 08/03/23 23:30 Hgb 14.10 g/dL (11.27-16.99) 08/03/23 23:30 Hct 45.9 % (37-53) 08/03/23 23:30 MCV 90.5 fl (82-101) 08/03/23 23:30 MCH 27.8 pg (27-33) 08/03/23 23: MCHC 30.7 g/dL (30-55) 08/03/23 23:30 RDW 14.4 % (12.1-15.1) 08/03/23 23:30 Plt Count 238 10^3/cmm (157-399) 08/03/23 23:30 MPV 13.1 fL (7.4-10.4) H 08/03/23 23:30 Neut % (Auto) 86.8 % 08/03/23 23:30 Lymph % (Auto) 2.6 % 08/03/23 23:30 [place] % (Auto) 8.6 % 08/03/23 23:30 Eos % (Auto) 0.0 % 08/03/23 23:30 Baso % (Auto) 0.3 % 08/03/23 23:30 Neut # (Auto) 29.18 10^3/uL (1.8-7.7) H 08/03/23 23:30 Lymph # (Auto) 0.9 10^3/uL (0.8-4.8) 08/03/23 23:30 [place] # (Auto) 2.9 10^3/uL (0.2-0.9) H 08/03/23 23:30 Eos # (Auto) 0.0 10^3/uL (0.0-0.8) 08/03/23 23:30 Baso # (Auto) 0.1 10^3/uL (0.0-0.1) 08/03/23 23:30 Nucleated RBC % (auto) 0 % 08/03/23 23:30 Nucleated RBCs # 0.0 /100WBC 08/03/23 23:30 D-Dimer 2.76 ug/mLFEU (0-0.59) H 08/04/23 00:00 Specimen Type Arterial 08/04/23 01:57 Sample Site Radial, right 08/04/23 01:57 ABG pH 7.30 (7.35-7.45) L 08/04/23 01:57 ABG pCO2 58.6 mmHg (35-45) H 08/04/23 01:57 ABG pO2 128.0 mmHg (80.0-100.0) H 08/04/23 01:57 ABG PO2/FiO2 Ratio 0 08/04/23 01:57 ABG HCO3 28.8 mmol/L (22-26) H 08/04/23 01:57 ABG O2 Saturation 98.9 08/03/23 23:54 ABG Base Excess 1.1 mmol/L (-2.0-2.0) 08/04/23 01:57 Sravan Test Pos 08/04/23 01:57 Hematocrit 41.0 % (42-52) L 08/04/23 01:57 Hgb O2 Saturation 97.3 % (95-100) 08/03/23 23:54 Carboxyhemoglobin 1.2 %THgb (0.4-20.1) 08/03/23 23:54 Methemoglobin 0.4 % (0.4-1.5) 08/03/23 23:54 Total Hemoglobin 14.7 g/dL (14-18) 08/03/23 23:54 Sodium 128.0 mmol/L (131-143) L 08/03/23 23:54 Potassium 4.8 mmol/L (3.5-5.0) 08/03/23 23:54 Glucose 386.0 mg/dL (70-115) H 08/03/23 23:54 Ionized Calcium 1.1 mmol/L (1.1-1.4) 08/03/23 23:54 O2 Delivery Device Bipap 08/04/23 01:57 O2 Liters/Min 15.0 % 08/03/23 23:54 FiO2 50.0 % 08/04/23 01:57 Tidal Volume 0.50 08/04/23 01:57 PEEP 8.0 cmH20 08/04/23 01:57 Candy Separator Enrobing ID [email or web address] 08/04/23 01:57 Sodium 127 mmol/L (136-145) L 08/03/23 23:30 Potassium 4.9 mmol/L (3.5-5.1) 08/03/23 23:30 Chloride 89 mmol/L (98-107) L 08/03/23 23:30 Carbon Dioxide 29 mmol/L (22-29) 08/03/23 23:30 Anion Gap 13.9 (5-19) 08/03/23 23:30 BUN 90 mg/dL (8-23) H* D 08/03/23 23:30 Creatinine 2.2 mg/dL (0.7-1.2) H 08/03/23 23:30 GFR Calculation 30.5 mL/min (90-130) L 08/03/23 23:30 Glucose 402 mg/dL (65-115) H 08/03/23 23:30 POC Glucose 419 mg/dL (70-110) H 08/04/23 01:52 Calculated Osmolality 308 mOsm/kg (285-295) H 08/03/23 23:30 Lactic Acid 2.6 mmol/L (0.5-2.2) H 08/03/23 23:30 Calcium 8.6 mg/dL (8.5-10.5) 08/03/23 23:30 Total Bilirubin 1.2 mg/dL (0.15-1.2) 08/03/23 23:30 AST 17 U/L (0-40) 08/03/23 23:30 ALT 17 U/L (0-41) 08/03/23 23:30 Alkaline Phosphatase 178 U/L (40-130) H 08/03/23 23:30 Troponin T Baseline 101 ng/L (0-15) H* 08/03/23 23:30 Troponin T 120 Minute 112.6 ng/L (0-15) H 08/04/23 01:25 Delta Troponin T 11.6 ABS# (0-10) H* 08/04/23 01:25 NT-Pro-B Natriuret Pep 42962 pg/mL (0-125) H 08/03/23 23:30 Total Protein 6.4 g/dL (6.6-8.7) L 08/03/23 23:30 Albumin 2.8 g/dL (3.5-5.2) L 08/03/23 23:30 Globulin 3.6 g/dL (1.3-4.6) 08/03/23 23:30 Procalcitonin 0.86 ng/mL (0-0.5) H 08/03/23 23:30 TSH 1.19 uIU/mL (0.27-4.20) 08/04/23 01:25 Serum Ketones Negative (Negative) 08/03/23 23:30 Coronavirus 229E (PCR) Not detected (NOT DETECT) 08/03/23 23:40 SARS-CoV-2 (PCR) Not detected (NOT DETECT) 08/03/23 23:40 Discharge Plan Discharge Patient Disposition: Admitted As Inpatient Admit Provider: Geovanni Espinoza Clinical Impression: Acute respiratory failure with hypoxia and hypercapnia, Pulmonary edema Condition: Serious Coding Level of Care Code ED Boiling House Oiler for Chg Fwd Documented by User: Moi Kaur DO 08/04/23 04:11 HPI - Weakness General: Chief complaint: General Medical Stated complaint: high blood sugars Time Seen by Provider: 08/03/23 22:44 PFSH ED PFSH: Medical History (Updated 08/04/23 @ 05:25 by Geovanni Espinoza MD) Amputation of left great toe Arthralgia of back Arthropathy of lumbar facet joint Benign essential HTN Chronic pain of both shoulders Diabetic ulcer of right foot associated with diabetes mellitus due to underlying condition, 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 Dyslipidemia Encounter for long-term use of opiate analgesic Fracture of distal phalanx of right middle finger History of amputation of toe Infection of finger Opioid contract 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 Pain in right foot Spinal stenosis, lumbar region without neurogenic claudication Uncontrolled type 2 diabetes mellitus, with long-term current use of insulin Surgical History H/O right knee surgery Hx laparoscopic cholecystectomy Hx of foot surgery Family History Unknown Diabetes Father Stroke Social History Smoking and tobacco/nicotine status: former use of tobacco/nicotine Second hand smoke exposure: No Alcohol intake: never Substance/Drug Use: never Physical Exam Neuro: TOY COMA SCALE: document GCS findings [place] coma scale total score: 15 Course Vital Signs: Vital signs: Vital Signs Temperature 98.1 F 08/03/23 22:44 Pulse Rate 60 08/04/23 08:00 Respiratory Rate 17 08/04/23 08:00 Blood Pressure 117/55 08/04/23 05:10 Pulse Oximetry 97 08/04/23 08:00 Oxygen Delivery Me thod BiPAP 08/04/23 08:00 Oxygen Flow Rate 50 08/04/23 02:29 Fraction of Inspir ed Oxygen 40 08/04/23 07:59 MDM - Weakness Medical Decision Making This patient was originally seen by Mrs. Sahu?MICHELLE Hernandez.? I agree with her history, evaluation, and treatment. I have seen and examined the patient as well. This patient exhibits signs of pulmonary edema with hypoxic respiratory failure. He had to be placed on nonrebreather oxygenation, due to low oxygen sats, but he began to be more lethargic. Blood gas was performed and showed significant respiratory acidosis. He is placed on BiPAP. ABG was repeated at 1.5 hours, and shows significant improvement in his respiratory acidosis. He is oxygenating well on BiPAP as well. His mentation is improving. His blood glucose is 400 without serum ketones. There is no anion gap. His blood sodium is 127, a pseudohyponatremia from hyperglycemia. He is given IV insulin, with sugar rechecks. His creatinine has doubled from baseline with significant elevation in BUN. Chest x-ray shows pulmonary vascular prominence suggestive of CHF. His BNP is 16,000. His troponin is roughly stable in the 1 teens at [address] shows minimal ST elevation in noncontiguous leads with some ST depression and T wave inversion. It was shown to cardiology in consultation, and heparin was suggested. The patient is going for CTA of the chest with CT of the abdomen pelvis follow-through on the way to the ICU. A Manuel was placed for accurate output Measurement. Lab Data 08/04/23 02:24 08/03/23 23:30 Radiology Impressions Chest X-Ray 08/03/23 22:55 IMPRESSION: Bilateral perihilar opacities and prominence of the pulmonary vasculature, this finding is likely at least partially related to low lung volumes and technique however these findings are also associated with changes of fluid overload and/or CHF. Correlate and follow-up as clinically indicated. Chest/Abdomen/Pelvis CT 08/04/23 02:15 IMPRESSION: 1. Positive for pulmonary embolus to the right lower lobe hilar and segmental pulmonary arteries (; ; ). 2. Mild left ventricular strain. 3. Bibasilar dependent linear opacities that may represent atelectasis. In the appropriate clinical setting, these could represent pneumonia. 4. Small bilateral pleural fluid collections. IMPRESSION: 1. Wall thickening of multiple bowel loops consistent with infectious, inflammatory or ischemic enteritis. Underdistension may present a similar picture. 2. Bladder wall thickening suggesting cystitis, incomplete distention or chronic outflow obstruction. 3. Hepatomegaly. 4. Atherosclerotic disease with kissing stents of both common iliac arteries extending to the aortic bifurcation. ADDENDUM: 08/04/23 0512 THIS REPORT CONTAINS FINDINGS THAT MAY BE CRITICAL TO PATIENT CARE. The findings were verbally communicated via telephone conference with Dr. Espinoza at 5:10 AM COLLECTION ADMINISTRATOR on 08/04/2023. The findings were acknowledged and understood. Laboratory Results WBC 33.67 10^3/uL (3.29-11.43) H* 08/03/23 23:30 RBC 5.07 10^6/uL (3.85-5.65) 08/03/23 23:30 Hgb 14.10 g/dL (11.27-16.99) 08/03/23 23:30 Hct 45.9 % (37-53) 08/03/23 23:30 MCV 90.5 fl (82-101) 08/03/23 23:30 MCH 27.8 pg (27-33) 08/03/23 23: MCHC 30.7 g/dL (30-55) 08/03/23 23:30 RDW 14.4 % (12.1-15.1) 08/03/23 23:30 Plt Count 238 10^3/cmm (157-399) 08/03/23 23: MPV 13.1 fL (7.4-10.4) H 08/03/23 23:30 Neut % (Auto) 86.8 % 08/03/23 23:30 Lymph % (Auto) 2.6 % 08/03/23 23:30 [place] % (Auto) 8.6 % 08/03/23 23:30 Eos % (Auto) 0.0 % 08/03/23 23:30 Baso % (Auto) 0.3 % 08/03/23 23:30 Neut # (Auto) 29.18 10^3/uL (1.8-7.7) H 08/03/23 23:30 Lymph # (Auto) 0.9 10^3/uL (0.8-4.8) 08/03/23 23:30 [place] # (Auto) 2.9 10^3/uL (0.2-0.9) H 08/03/23 23:30 Eos # (Auto) 0.0 10^3/uL (0.0-0.8) 08/03/23 23:30 Baso # (Auto) 0.1 10^3/uL (0.0-0.1) 08/03/23 23:30 Nucleated RBC % (auto) 0 % 08/03/23 23:30 Nucleated RBCs # 0.0 /100WBC 08/03/23 23:30 D-Dimer 2.76 ug/mLFEU (0-0.59) H 08/04/23 00:00 Specimen Type Arterial 08/04/23 01:57 Sample Site Radial, right 08/04/23 01:57 ABG pH 7.30 (7.35-7.45) L 08/04/23 01:57 ABG pCO2 58.6 mmHg (35-45) H 08/04/23 01:57 ABG pO2 128.0 mmHg (80.0-100.0) H 08/04/23 01:57 ABG PO2/FiO2 Ratio 0 08/04/23 01:57 ABG HCO3 28.8 mmol/L (22-26) H 08/04/23 01:57 ABG O2 Saturation 98.9 08/03/23 23:54 ABG Base Excess 1.1 mmol/L (-2.0-2.0) 08/04/23 01:57 Sravan Test Pos 08/04/23 01:57 Hematocrit 41.0 % (42-52) L 08/04/23 01:57 Hgb O2 Saturation 97.3 % (95-100) 08/03/23 23:54 Carboxyhemoglobin 1.2 %THgb (0.4-20.1) 08/03/23 23:54 Methemoglobin 0.4 % (0.4-1.5) 08/03/23 23:54 Total Hemoglobin 14.7 g/dL (14-18) 08/03/23 23:54 Sodium 128.0 mmol/L (131-143) L 08/03/23 23:54 Potassium 4.8 mmol/L (3.5-5.0) 08/03/23 23:54 Glucose 386.0 mg/dL (70-115) H 08/03/23 23:54 Ionized Calcium 1.1 mmol/L (1.1-1.4) 08/03/23 23:54 O2 Delivery Device Bipap 08/04/23 01:57 O2 Liters/Min 15.0 % 08/03/23 23:54 FiO2 50.0 % 08/04/23 01:57 Tidal Volume 0.50 08/04/23 01:57 PEEP 8.0 cmH20 08/04/23 01:57 Candy Separator Enrobing ID [email or web address] 08/04/23 01:57 Sodium 127 mmol/L (136-145) L 08/03/23 23:30 Potassium 4.9 mmol/L (3.5-5.1) 08/03/23 23:30 Chloride 89 mmol/L (98-107) L 08/03/23 23:30 Carbon Dioxide 29 mmol/L (22-29) 08/03/23 23:30 Anion Gap 13.9 (5-19) 08/03/23 23:30 BUN 90 mg/dL (8-23) H* D 08/03/23 23:30 Creatinine 2.2 mg/dL (0.7-1.2) H 08/03/23 23:30 GFR Calculation 30.5 mL/min (90-130) L 08/03/23 23:30 Glucose 402 mg/dL (65-115) H 08/03/23 23:30 POC Glucose 419 mg/dL (70-110) H 08/04/23 01:52 Calculated Osmolality 308 mOsm/kg (285-295) H 08/03/23 23:30 Lactic Acid 2.6 mmol/L (0.5-2.2) H 08/03/23 23:30 Calcium 8.6 mg/dL (8.5-10.5) 08/03/23 23:30 Total Bilirubin 1.2 mg/dL (0.15-1.2) 08/03/23 23:30 AST 17 U/L (0-40) 08/03/23 23:30 ALT 17 U/L (0-41) 08/03/23 23:30 Alkaline Phosphatase 178 U/L (40-130) H 08/03/23 23:30 Troponin T Baseline 101 ng/L (0-15) H* 08/03/23 23:30 Troponin T 120 Minute 112.6 ng/L (0-15) H 08/04/23 01:25 Delta Troponin T 11.6 ABS# (0-10) H* 08/04/23 01:25 NT-Pro-B Natriuret Pep [id number] pg/mL (0-125) H 08/03/23 23:30 Total Protein 6.4 g/dL (6.6-8.7) L 08/03/23 23:30 Albumin 2.8 g/dL (3.5-5.2) L 08/03/23 23:30 Globulin 3.6 g/dL (1.3-4.6) 08/03/23 23:30 Procalcitonin 0.86 ng/mL (0-0.5) H 08/03/23 23:30 TSH 1.19 uIU/mL (0.27-4.20) 08/04/23 01:25 Serum Ketones Negative (Negative) 08/03/23 23:30 Coronavirus 229E (PCR) Not detected (NOT DETECT) 08/03/23 23:40 SARS-CoV-2 (PCR) Not detected (NOT DETECT) 08/03/23 23:40 All radiology interpretation(s) finalized by discharge Critical Care Time Critical Care Time: Critical Care Time: Yes Total Critical Care Time: 35 Attestation: This case had a high probability of a clinically significant, sudden, or life th reatening deterioration of this patient's condition which required my full and direct attention, intervention and personal management. Time is independent of any procedures performed. Discharge Plan Discharge Patient Disposition: Admitted As Inpatient Admit Provider: Geovanni Espinoza Clinical Impression: Acute respiratory failure with hypoxia and hypercapnia, Pulmonary edema Condition: Serious Coding Level of Care Code ED Boiling House Oiler for Marjorie Penny
[2023-08-03 23:41] LABS: Basophils # 0.1 10^3/uL (0.0-0.1); Basophils % 0.3 %; Hematocrit 45.9 % (37-53); Lymphocytes # 0.9 10^3/uL (0.8-4.8); Lymphocytes % 2.6 %; Mean Corpuscular HGB Conc 30.7 g/dL (30-55); Mean Corpuscular Hemoglobin 27.8 pg (27-33); Mean Corpuscular Volume 90.5 fl (82-101); Mean Platelet Volume 13.1 fL (7.4-10.4); Monocytes # 2.9 10^3/uL (0.2-0.9); Monocytes % 8.6 %; Neutrophils # 29.18 10^3/uL (1.8-7.7); Neutrophils % 86.8 %; Nucleated Red Blood Cells % 0 %; Platelet Count 238 10^3/cmm (157-399); Red Blood Count 5.07 10^6/uL (3.85-5.65); Red Cell Distribution Width 14.4 % (12.1-15.1)
[2023-08-03 23:44] VITALS: BP 138/62; PULSE 92; RESP 24; O2SAT 98
[2023-08-03 23:50] LABS: Ketone (Acetest) Serum Negative (Negative)
[2023-08-03 23:58] VITALS: BP 134/47; PULSE 96; RESP 26; O2SAT 97
[2023-08-04] VITALS (58 sets, daily range): BP systolic 92–166; BP diastolic 44–99; PULSE 55–91; RESP 0–32; TEMP 36.8; O2SAT 87–100
[2023-08-04 00:01] LABS: Lactic Sepsis W/Reflex 2.6 mmol/L (0.5-2.2)
[2023-08-04 00:06] LABS: Troponin(5th) Baseline 101 ng/L (0-15)
[2023-08-04 00:06] LABS: ABG PCO2 76.2 mmHg (35-45); ABG PH Result 7.21 (7.35-7.45); Base Excess ABG 0.1 mmol/L (-2.0-2.0); Blood Gas Allen Test Pos; Blood Gas Sample Site Radial, right; Blood Gas Sample Type Arterial; Carboxyhemoglobin 1.2 %THgb (0.4-20.1); HCO3 ABG 30.4 mmol/L (22-26); HGB O2 Sat 97.3 % (95-100); Ionized Calcium Level - ABG 1.1 mmol/L (1.1-1.4); Methemoglobin 0.4 % (0.4-1.5); Oxygen Device NRB; Oxygen Saturation ABG 98.9; Potassium Level - ABG 4.8 mmol/L (3.5-5.0); Total Hemoglobin 14.7 g/dL (14-18)
[2023-08-04 00:17] LABS: Slide Review Slide Review Perform; White Blood Count 33.67 10^3/uL (3.29-11.43)
[2023-08-04 00:20] LABS: Alanine Aminotransferase 17 U/L (0-41); Albumin Level 2.8 g/dL (3.5-5.2); Alkaline Phosphatase 178 U/L (40-130); Anion Gap 13.9 (5-19); Aspartate Amino Transferase 17 U/L (0-40); Calcium 8.6 mg/dL (8.5-10.5); Carbon Dioxide 29 mmol/L (22-29); Chloride 89 mmol/L (98-107); Globulin 3.6 g/dL (1.3-4.6); Glomerular Filtration Rate 30.5 mL/min (90-130); Glucose 402 mg/dL (65-115); Osmolality Calculated 308 mOsm/kg (285-295); Potassium 4.9 mmol/L (3.5-5.1); Sodium 127 mmol/L (136-145); Total Bilirubin 1.2 mg/dL (0.15-1.2); Total Protein 6.4 g/dL (6.6-8.7)
[2023-08-04 00:22] LABS: Blood Urea Nitrogen 90 mg/dL (8-23)
[2023-08-04 00:28] LABS: NT Pro B Type Natriuretic Pept 16392 pg/mL (0-125)
[2023-08-04] MEDS: piperacillin-tazobactam 4.5 GM in sodium chloride 0.9% (plus) 50 ML IV (00:37)
--- NOTE | 2023-08-04 00:47 | ECG_ITS ---
[facility] Test Date: 2023-08-04 Pat Name: Frank Estes Department: Room: Gender: Male Business Support: : 1960 Requested By: Fanta Sahu Order Number: [id number] Celsa MD: Nakia King M.D. Measurements Intervals [place] Rate: 61 P: 49 MN: 162 QRS: -5 QRSD: 100 T: 124 QT: 423 QTc: 427 Interpretive Statements SINUS RHYTHM WITH SINUS ARRHYTHMIA POSSIBLE LEFT ATRIAL ENLARGEMENT [-0.1mV P-WAVE IN V1/V2] ST DEVIATION AND MODERATE T-WAVE ABNORMALITY, CONSIDER ANTEROLATERAL ISCHEMIA [-0.1+ mV T-WAVE IN V3-V6] Compared to ECG 08/03/2023 22:59:57 Possible ischemia now present Incomplete right bundle-branch block no longer present T-wave abnormality still present Electronically Signed On 08-05-2023 1:53:13 BISQUE WARE DIPPER by Nakia King M.D. [email or web address]
[2023-08-04 00:50] LABS: Procalcitonin 0.86 ng/mL (0-0.5)
[2023-08-04] MEDS: FUROsemide 10 mg/mL SDV 10mL 80 MG IVP (01:17)
[2023-08-04] MEDS: vancomycin 1,500 MG/300 ML PIGGYBACK 200 MG IV (01:18)
[2023-08-04 01:24] LABS: Reflex Lactate Order REFLEX LACTIC ORDERD
[2023-08-04] MEDS: insulin regular-human 100 units/1 mL 10 UNIT IVP (01:27)
[2023-08-04 01:43] LABS: Adenovirus Not Detected (NOT DETECT); Chlamydia Pneumoniae Not Detected (NOT DETECT); Coronavirus 229E,HKU1,NL63,OC4 Not Detected (NOT DETECT); Human Metapneumovirus Not Detected (NOT DETECT); Human Rhinovirus/Enterovirus Not Detected (NOT DETECT); Influenza A Not Detected (NOT DETECT); Influenza A H1 Not Detected (NOT DETECT); Influenza A H1-2009 Not Detected (NOT DETECT); Influenza A H3 Not Detected (NOT DETECT); Influenza B Not Detected (NOT DETECT); Mycoplasma Pneumoniae Not Detected (NOT DETECT); Parainfluenza Virus Type 1 Not Detected (NOT DETECT); Parainfluenza Virus Type 2 Not Detected (NOT DETECT); Parainfluenza Virus Type 3 Not Detected (NOT DETECT); Parainfluenza Virus Type 4 Not Detected (NOT DETECT); Respiratory Syncytial Virus A Not Detected (NOT DETECT); Respiratory Syncytial Virus B Not Detected (NOT DETECT); SARS-COV-2 Not Detected (NOT DETECT)
[2023-08-04 01:55] LABS: Glucose Point of Care 419 mg/dL (70-110)
[2023-08-04 02:03] LABS: Troponin 5 2HR 112.6 ng/L (0-15); Troponin 5 2HR Delta 11.6 ABS# (0-10)
[2023-08-04 02:08] LABS: ABG PCO2 58.6 mmHg (35-45); Base Excess ABG 1.1 mmol/L (-2.0-2.0); Blood Gas Allen Test Pos; Blood Gas Sample Site Radial, right; Blood Gas Sample Type Arterial; HCO3 ABG 28.8 mmol/L (22-26); Oxygen Device BIPAP; PO2 FiO2 Ratio Arterial Blood 0
[2023-08-04 02:10] LABS: D Dimer 2.76 ug/mLFEU (0-0.59)
--- NOTE | 2023-08-04 02:15 | CTR_ITS ---
PROCEDURE INFORMATION: Exam: CTA Chest With Contrast Exam date and time: 08/04/2023 3:40 AM Age: 62 years old Clinical indication: Abnormal findings; Abnormal lab test; Elevated wbc; Other: Decreased urine output; Other: N/a; Shortness of breath; Prior surgery; Surgery date: 6+ months; Surgery type: Iliac stent. Gb; Patient HX: SOB with hypoxia. Wbc of 34k. Bun of 90. Baseline trop of 101. Lactic acid of 2.6. History of diabetes and stage iii ckd. ; Additional info: Hypoxia, decreased urine output, SOB TECHNIQUE: Imaging protocol: Computed tomographic angiography of the chest with contrast. Exam focused on the arteries. 3D rendering (Not supervised by radiologist): MIP and/or 3D reconstructed images were created by the technologist. Radiation optimization: All CT scans at this facility use at least one of these dose optimization techniques: automated exposure control; mA and/or kV adjustment per patient size (includes targeted exams where dose is matched to clinical indication); or iterative reconstruction. Contrast material: OMNI 350; Contrast volume: 100 ml; Contrast route: INTRAVENOUS (IV); REPORTING DATA: Count of CT and Cardiac NM exams in prior 12 months: This patient has received [address] and 0 known cardiac nuclear medicine studies in the 12 months prior to the current study. COMPARISON: CR (CHEST, ) 08/03/2023 11:13 PM RADIATION DOSE METRICS: Total DLP (mGy-cm): 2120.75 FINDINGS: Pulmonary arteries: Positive for pulmonary embolus to the right lower lobe hilar and segmental pulmonary arteries (8/246; ; ). Aorta: There is no thoracic aortic aneurysm. Lungs: Bibasilar dependent linear opacities that may represent atelectasis. Pleural spaces: Small bilateral pleural fluid collections. Heart: There is straightening of the interventricular septum, as seen in right ventricular strain. Heavy calcification of the aortic valve and mitral annulus. Heart RV/LV ratio: The RV/LV ratio is 1.1, abnormal. Lymph nodes: No enlarged mediastinal or hilar lymph nodes are seen. Bones/joints: No acute fracture.There is segmental ossification of the anterior longitudinal ligament consistent with benign diffuse idiopathic skeletal hyperostosis (DISH). Soft tissues: Unremarkable. PROCEDURE INFORMATION: Exam: CT Abdomen And Pelvis With Contrast Exam date and time: 08/04/2023 3:40 AM Age: 62 years old Clinical indication: Abnormal findings; Abnormal lab test; Elevated wbc; Other: Decreased urine output; Other: N/a; Shortness of breath; Prior surgery; Surgery date: 6+ months; Surgery type: Iliac stent. Gb; Patient HX: SOB with hypoxia. Wbc of 34k. Bun of 90. Baseline trop of 101. Lactic acid of 2.6. History of diabetes and stage iii ckd. ; Additional info: Hypoxia, decreased urine output, SOB TECHNIQUE: Imaging protocol: Computed tomography of the abdomen and pelvis with contrast. Radiation optimization: All CT scans at this facility use at least one of these dose optimization techniques: automated exposure control; mA and/or kV adjustment per patient size (includes targeted exams where dose is matched to clinical indication); or iterative reconstruction. Contrast material: OMNI 350; Contrast volume: 100 ml; Contrast route: INTRAVENOUS (IV); REPORTING DATA: Count of CT and Cardiac NM exams in prior 12 months: This patient has received [address] and 0 known cardiac nuclear medicine studies in the 12 months prior to the current study. COMPARISON: CT angio abd aorta runof [id number] 01/25/2023 1:47 PM RADIATION DOSE METRICS: Total DLP (mGy-cm): 2120.75 FINDINGS: Limitations: Streak and motion artifacts limit evaluation. Lungs: No consolidation in the visualized lung bases. Liver: The liver is mildly enlarged, measuring 18.6 cm in length at the mid axillary line. There are no enhancing liver lesions. Gallbladder and bile ducts: There has been a cholecystectomy. There is no evidence of biliary ductal dilation. Pancreas: Normal in size and homogeneous enhancement. No ductal dilation. Spleen: The spleen is normal in size and density. Adrenal glands: The adrenal glands are normal. Kidneys and ureters: There is no hydronephrosis. No renal or obstructive ureteral calculi are identified. There are vascular calcifications in both renal anushka. Stomach and bowel: There is no evidence of small bowel or colonic obstruction. Wall thickening of multiple bowel loops consistent with infectious or inflammatory enteritis. Appendix: A normal appendix is identified. Intraperitoneal space: No free air. No significant fluid collection. Vasculature: Prominent atherosclerotic calcification of the abdominal aorta and iliac arteries. There are kissing stents in both common iliac arteries extending to the aortic bifurcation. Evaluation for stent patency is limited by suboptimal contrast opacification of the iliac arteries. Mild stenoses at the origins of the celiac trunk and SMA. Moderate stenosis at the origin of the NICHO. Lymph nodes: No enlarged retroperitoneal or mesenteric lymph nodes. Urinary bladder: There is mild bladder wall thickening. There is mild bladder wall thickening. Reproductive: Unremarkable as visualized. Bones/joints: No acute fracture. Soft tissues: There are small bilateral nonobstructing inguinal hernias containing adipose tissue. There is a small fat-containing umbilical hernia. A small area of stranding and gas in the right paraumbilical subcutaneous soft tissues, likely an injection site. CT/CT angio chest w abd pel w con IMPRESSION: 1. Positive for pulmonary embolus to the right lower lobe hilar and segmental pulmonary arteries (; ; ). 2. Mild left ventricular strain. 3. Bibasilar dependent linear opacities that may represent atelectasis. In the appropriate clinical setting, these could represent pneumonia. 4. Small bilateral pleural fluid collections. IMPRESSION: 1. Wall thickening of multiple bowel loops consistent with infectious, inflammatory or ischemic enteritis. Underdistension may present a similar picture. 2. Bladder wall thickening suggesting cystitis, incomplete distention or chronic outflow obstruction. 3. Hepatomegaly. 4. Atherosclerotic disease with kissing stents of both common iliac arteries extending to the aortic bifurcation.
[2023-08-04 02:32] LABS: Platelet Count 226 10^3/cmm (157-399)
[2023-08-04] MEDS: heparin 5,000 unit/mL INJ 1 mL IV ×2 (02:52→21:44)
[2023-08-04] MEDS: heparin drip 25,000 UNIT/500 ML PREMIX 38.1 UNIT IV (02:55)
[2023-08-04] MEDS: iohexol 350 mg/mL 500 mL Btl (per mL) IV (03:51)
--- NOTE | 2023-08-04 04:57 | PM.HP ---
Providers/Chief Complaint Admitting Physician: Geovanni Espinoza Primary Care Provider: Latoya Dumont DO Chief Complaint: high blood sugars History of Present Illness 62-year-old gentleman with past history of diabetes, diabetic lower extremity wound, prior amputations, hypertension, obesity, was brought into the ED for evaluation by EMS which was called due to weakness and elevated blood sugars. On initial visit he refused to go to the hospital, but later they were recalled with concerns that his weakness was worsening. With reported poor living condition (hoarding) stretcher could not be brought into the home, he had to ambulate out of the home, was very dyspneic and weak until he could get to the ambulance. Found to be disheveled. Weak. Lost control of the bladder. Hypoxic, oxygen saturation down to 78%. With respiratory acidosis on ABG, 7.21/76.2. Started on BiPAP. Afebrile, but with leukocytosis of 33. Hyponatremia 127. VERONICA BUN 90, creatinine 2.2. Glucose elevated. Lactic acid 2.6. Alk phos 178, liver parameters otherwise unremarkable. Troponin 101. NT proBNP 16,392. Albumin 2.8. Procalcitonin 0.86. Chest x-ray with bilateral perihilar opacities and prominence of pulmonary vasculature. Likely at least partially related to low lung volumes and technique however these findings are also associated with changes of fluid overload and/or CHF. Noted some weeping from lower extremities. He was given 80 mg of Lasix. Empirically started on Zosyn, vancomycin. COVID-19 PCR not detected. D-dimer 2.76. Requested CT angiogram chest, CT abdomen pelvis pending. His reports that patient and his daughter had a viral infection about a month ago, however, he just never recovered. Continue to have cough. They were also trying to coax some chicken broth for him to help him get better, but his legs/thighs started swelling, and concerned that it was due to the salt in the chicken soup they discontinued it. Review of Systems General: Reports: ROS unobtainable due to medical condition Medications/Allergies Home Medications Medication Instructions Recorded Confirmed Last Taken Type amlodipine 10 mg tablet 10 mg PO DAILY 30 days #30 tabs 12/05/21 07/31/23 03/20/23 Rx indomethacin 50 mg capsule 50 mg PO TID #21 caps 06/04/22 07/31/23 04/30/22 Rx insulin syringe-needle U-100 1 mL #200 ea 07/24/22 07/31/23 Unknown Rx 31 gauge x 15/64 (BD Veo Insulin Syringe Ultra-Fine) rosuvastatin 10 mg tablet See Rx Instructions .Route 09/27/22 07/31/23 03/21/23 Rx .COMPLEX #90 tabs diabetic shoes #1 ea 01/30/23 07/31/23 Unknown Rx aspirin 325 mg tablet 325 mg PO DAILY 03/21/23 07/31/23 03/23/23 History insulin syringe-needle U-100 1 mL #200 ea 04/23/23 07/31/23 Unknown Rx 31 gauge x 5/16 (BD Insulin Syringe Ultra-Fine) metformin 500 mg tablet See Rx Instructions .Route 05/12/23 07/31/23 Unknown Rx .COMPLEX #180 tabs dulaglutide 3 mg/0.5 mL See Rx Instructions .Route 05/30/23 07/31/23 Unknown Rx subcutaneous pen injector .COMPLEX #4 mL (Trulicity) insulin glargine 100 unit/mL See Rx Instructions SUBCUT BID 90 05/30/23 07/31/23 Unknown Rx subcutaneous solution (Lantus days #10 mL U-100 Insulin) albuterol sulfate 90 mcg/actuation 2 puff inhalation QID #6.7 grams 06/13/23 07/31/23 Unknown Rx aerosol inhaler (Ventolin HFA) blood sugar diagnostic (Accu-Chek #100 ea 06/26/23 07/31/23 Unknown Rx Violeta Plus test strips) hydrochlorothiazide 25 mg tablet See Rx Instructions .Route 07/18/23 07/31/23 Unknown Rx .COMPLEX #90 tabs lisinopril 10 mg tablet See Rx Instructions .Route 07/18/23 07/31/23 Unknown Rx .COMPLEX #90 tabs carvedilol 6.25 mg tablet See Rx Instructions .Route 07/28/23 07/31/23 Unknown Rx .COMPLEX #180 tabs cyclobenzaprine 10 mg tablet 10 mg PO TID PRN muscle spasm #30 07/31/23 07/31/23 Unknown Rx tabs hydrocodone 5 mg-acetaminophen 325 1 tab PO TID PRN pain 7 days #21 07/31/23 Unknown Rx mg tablet tabs Allergies Allergy/AdvReac Type Severity Reaction Status Date / Time No Known Allergies Allergy Verified 08/03/23 22:57 PFSH Acute PFSH: Medical History (Updated 08/04/23 @ 05:25 by Geovanni Espinoza MD) Amputation of left great toe Arthralgia of back Arthropathy of lumbar facet joint Benign essential HTN Chronic pain of both shoulders Diabetic ulcer of right foot associated with diabetes mellitus due to underlying condition, 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 Dyslipidemia Encounter for long-term use of opiate analgesic Fracture of distal phalanx of right middle finger History of amputation of toe Infection of finger Opioid contract 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 Pain in right foot Spinal stenosis, lumbar region without neurogenic claudication Uncontrolled type 2 diabetes mellitus, with long-term current use of insulin Surgical History H/O right knee surgery Hx laparoscopic cholecystectomy Hx of foot surgery Family History Unknown Diabetes Father Stroke Social History Smoking and tobacco/nicotine status: former use of tobacco/nicotine Second hand smoke exposure: No Alcohol intake: never Substance/Drug Use: never Vitals/I&O/Wt Last Vital Signs Temp 98.1 F 08/03/23 22:44 Pulse 56 L 08/04/23 03:26 Resp 14 08/04/23 03:26 BP 92/56 08/04/23 03:26 Pulse Ox 97 08/04/23 03:26 O2 Del Method BiPAP 08/04/23 03:26 O2 Flow Rate 50 08/04/23 02:29 FiO2 50 08/04/23 04:02 Weight last 48 hrs Weight 136.078 kg Physical Exam Const: NUTRITIONAL APPEARANCE: obese ORIENTATION/CONSCIOUSNESS: Yes awake HENMT: COMMON NORMALS: oropharynx normal Neck/C-Spine: COMMON NORMALS: no JVD Resp: COMMON NORMALS: normal respiratory effort and clear to auscultation bilaterally AUSCULTATION: clear to auscultation bilaterally (Difficult to examine due to body habitus.) Cardio: COMMON NORMALS: no JVD, regular rhythm, S1 normal heart sound present, S2 normal heart sound present and No murmurs present (Cardio) RHYTHM: regular rhythm HEART SOUNDS: S1 normal heart sound present and S2 normal heart sound present GI: COMMON NORMALS: Normal to inspection, nondistended, normoactive bowel sounds present, Soft to palpation and non-tender PALPATION: Yes Soft to palpation Extremity: COMMON NORMALS: no joint enlargement GENERAL: Yes edema (trace) Neuro: COMMON NORMALS: moves all extremities Skin: OTHER: Mild weeping BL LE extremities particularly. Bilateral islas skin tears without purulent drainage, no surrounding erythema. No tunneling or undermining. Noted small ulceration at site of past amputation of the third or fourth digits at the stump of the right foot Data 08/04/23 02:24 08/03/23 23:30 Micro: Microbiology 08/03/23 22:22 Blood Culture - Preliminary Blood SPECIMEN COLLECTED 08/03/23 23:30 Blood Culture - Preliminary Blood SPECIMEN COLLECTED A&P Assessment and plan (1) Acute respiratory failure with hypoxia and hypercapnia: Multifactorial respiratory failure with hypoxia and hypercapnia. He had a viral infection about a month ago per his and never really recovered completely, continued coughing. Progressive generalized weakness. Also lower extremity edema. Appears to be combination of bacterial pneumonia superimposed after viral infection, decompensated acute congestive heart failure, as well as CTA is coming back with a finding of pulmonary embolism. Additionally concern for possible NSTEMI. Patient unable to provide history, history had to be obtained from his , ER staff. Reviewed vitals, CBC, CMP, ABG, D-dimer, CMP, troponin, EKG. COVID PCR panel. Chest x-ray, CT chest abdomen pelvis. ER documentation, discussed with ER provider. Discussed with [facility] radiologist. On presentation in significant respiratory acidosis. 7.21/76.2. Started on BiPAP support. So far with improvement, 7.28/57.6. Treat underlying conditions. Continue BiPAP support at this time. NPO. Wean down as tolerating. Likely component of OHS as well. Would benefit from assessment for CIRILO after discharge. (2) CAP (community acquired pneumonia): Superimposed on viral infection which she had about a month ago. With cough, leukocytosis 33.67. Bibasilar linear opacities. Continue empiric antibiotic coverage at this time with cefepime, vancomycin. Collect sputum culture if he is able to provide. Urine bacterial antigens. MRSA PCR. (3) Acute decompensated heart failure: Type unknown. While having difficult time recovering after his viral illness they were preparing chicken soup which he was eating, but started having a lot of swelling in his legs up to his thighs. They discontinued it due to concern that it was due to the salt in the chicken broth. Possible cardiomyopathy following viral illness. However, also moderate troponin elevation up to 100 baseline, 2 hours 112.6. Dilated in setting of VERONICA, NSTEMI has cause of decompensation is possible as we had discussed with his . Complete ischemic cardiac work-up. Obtain TTE. Cardiology is consulted. Continue cautious diuresis, will give a dose of albumin. Continue Lasix 40 mg IV twice daily. Monitor electrolytes, at risk of deficiency with diuresis. Monitor on telemetry at risk of arrhythmia. Monitor MATTHEW. Monitor weights. Currently continue BiPAP. Wean down as tolerating. (4) Leukocytosis: possible sepsis, leukocytosis 33.67, with some tachypnea, respiratory rates ranging between 15-23. Does not fit criteria quite well. Noted lactic acidosis 2.6. No mottling, good capillary refill on exam. Afebrile, no tachycardia. But certainly there is concern for infection, pneumonia as above. Additionally UA has been requested, not yet collected. Initially some consideration for dehydration, DKA with hyperglycemia, history of diabetes, but serum ketones negative. No significant anion gap. Bicarb 29. So far has not had any diarrhea here. Consider sample for C. difficile in case develops diarrhea. CT abdomen pelvis coming back with some urinary bladder wall thickening, follow-up UA once available. Consideration of UTI. No obstructive uropathy noted. Noted some wall thickening of multiple bowel loops with possible infectious, inflammatory or ischemic enteritis. Lactic acid with mild elevation but his abdominal exam is otherwise benign. He is not having any pain, no tenderness on palpation, rigidity. We will repeat lactic acid. Suspicion for ischemic bowel is lower at this time and he had just received a contrast load with CTA, will see if can obtain duplex ultrasound of celiac trunk, SMA. (5) NSTEMI (non-ST elevated myocardial infarction): Noted baseline troponin elevation up to 101. EKGs reviewed, on my interpretation some chronic baseline elevation of ST segment in septal leads, currently with some T wave inversion and does not appear to have a STEMI, but with concern for some appearance of ST elevation discussed with ER physician who also reviewed them with the software quality analyst. last EKG was reported Q waves, but those are S waves. He is started on anticoagulation, With risk of bleeding, monitor PTT, blood counts, aspirin SD, cardiology consultation. TTE is requested. Telemetry monitoring. (6) Pulmonary embolism: CT angiogram chronic back with finding of pulmonary embolism in right lower lobe. He was started on heparin drip as above for NSTEMI. Continue. TTE. So far has been maintaining blood pressure, but also question of borderline sepsis. Monitor vitals. (7) VERONICA (acute kidney injury): Possibly NSAID induced, noted indomethacin although updated medication list is not available. No obstructive uropathy noted on CT. We will check CK. Hold lisinopril. Receiving diuresis for CHF as above, albumin low, will give a dose. Some possibility of congestive nephropathy as well. At risk of electrolyte imbalance, acid-base abnormality, worsening renal function. Discussed with his . Regarding risk of contrast nephropathy contributing to worsening renal function. Follow-up chemistry later today. (8) Hyponatremia: Hypervolemic hyponatremia with CHF exacerbation. Diuresis as above. We will follow-up chemistry today. (9) Hyperglycemia: Diabetes with hyperglycemia, does not appear to be in DKA. Continue Lantus at reduced dose, sliding scale insulin. For now he is n.p.o. Plan Possible enteritis: As above. So far no diarrhea, no abdominal pain, abdominal exam benign. Received a dose of Zosyn. Switched over to cefepime for now to avoid combination of Zosyn with vancomycin. In case develops diarrhea consider additional assessment with stool studies. On the current CT ischemic bowel could not be ruled out, but appears to be less likely By clinical findings, but will repeat lactic acid, will see if we are able to visualize celiac trunk, SMA with ultrasound. Poor living conditions: Seems he has not been feeling well for about a month first with viral infection, then never really recovered, found disheveled, although seems difficult living conditions at home as noted by EMS/ER documentation. We will request consultation with case management. Lower extremity wounds: Continue wound care Obesity: Follow-up with PCP Requested home medications to be confirmed, please review once available. Attestations Medical Necessity Statement*: Admission of over 2 midnights anticipated for assessment and management of respiratory failure, pneumonia, decompensated CHF, PE, VERONICA, hyponatremia, hyperglycemia and other medical problems. Critical Care Time: Critical care time spent 15 minutes in addition to noncritical care as below. The high probability of a clinically significant, sudden or life threatening deterioration of the patient's cardiac, respiratory system(s) required my full and direct attention, intervention and personal management. The critical care time is as shown. This time is in addition to time spent performing any reported procedures but includes the following: x Data and vital sign review and interpretation x Patient assessment, examination and intervention x Documentation x Medication orders and management Critical Care Time (min): 15 and High Time for a total of 80 minutes, includes reviewing past or interval history, examining/interviewing patient, placing orders, counseling patient/family/other support, updating patient/family/other support, discussing plan of care with staff, communicating with other healthcare providers, documenting encounter and coordinating care Diagnoses Acute respiratory failure with hypoxia and hypercapnia J96.01; J96.02 CAP (community acquired pneumonia) J18.9 Acute decompensated heart failure I50.9 Leukocytosis D72.829 NSTEMI (non-ST elevated myocardial infarction) I21.4 Pulmonary embolism I26.99 VERONICA (acute kidney injury) N17.9 Hyponatremia E87.1 Hyperglycemia R73.9
--- NOTE | 2023-08-04 05:17 | ECG_ITS ---
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 Measurements Intervals [place] Rate: 62 P: 65 RI: 167 QRS: 96 QRSD: 100 T: 132 QT: 438 QTc: 448 Interpretive Statements SINUS RHYTHM WITH SINUS ARRHYTHMIA BORDERLINE RIGHT AXIS DEVIATION [QRS AXIS > 90] ANTERIOR MYOCARDIAL INFARCTION , PROBABLY RECENT Compared to ECG 08/04/2023 00:47:03 Myocardial infarct finding now present T-wave abnormality no longer present Possible ischemia no longer present Electronically Signed On 08-05-2023 1:53:04 TOOL SPECIALIST by Nakia King M.D. [id number]
--- NOTE | 2023-08-04 05:18 | USCV_ITS ---
Frank Estes Age: 62 Gender: M : 1960 Exam Date: 08/04/2023 09:04 Ordering Phys: Geovanni Espinoza MD Technologist: Kilo Mckeon [place] [facility] [place]: chf BP: 109 / 46 HR: 63 Rhythm: Sinus Technical Quality: Adequate MEASUREMENTS (Male / Female) Normal Values 2D ECHO LVOT Diameter 2.1 cm LA Diameter 4.4 cm IVC Diameter 2.0 cm M-MODE MV E Point Septal Separation 1.0 cm DOPPLER AV Peak Velocity 406.0 cm/s LVOT Peak Velocity 102.0 cm/s AV Area Cont Eq vti 1.0 cm squared AV Area Cont Eq pk 0.8 cm squared MV Area PHT 5.0 cm squared Mitral E to A Ratio 1.0 MV E' Velocity 41.5 cm/s Mitral E to MV E' Ratio 11.0 Mitral E to LV E' Lateral Ratio 11.2 Mitral E to LV E' Septal Ratio 11.0 TR Peak Velocity 216.0 cm/s TR Peak Gradient 18.7 mmHg Right Atrial Pressure 3.0 mmHg Pulmonary Artery Systolic Pressu 21.7 mmHg FINDINGS Left Ventricle Normal left ventricular size and systolic function, EF 55%.mild left ventricular hypertrophy.no regional wall motion abnormalities. Right Ventricle The right ventricle is normal in size and function. Right Atrium The right atrium is normal in size. Left Atrium The left atrium is normal in size. Mitral Valve Thickened mitral valve. Moderate mitral annular calcification. Aortic Valve Severe aortic valve stenosis with a peak velocity of 4.15 m/s, peak gradient of 69, mean gradient of 34.8 and a calculated valve area of 0.93 cm squared. The valve index is 0.35 Tricuspid Valve No gross abnormalities noted Pulmonic Valve Pulmonic valve not well visualized. Pericardium Normal pericardium without effusion. Aorta Normal ascending aorta dimension. IVC Inferior vena cava not visualized. CONCLUSIONS Normal left ventricular size and systolic function, EF 55%. Mild left ventricular hypertrophy.no regional wall motion abnormalities. Thickened mitral valve. Moderate mitral annular calcification. Severe aortic valve stenosis with a peak velocity of 4.15 m/s, peak gradient of 69, mean gradient of 34.8 and a calculated valve area of 0.93 cm squared. The valve index is 0.35. There is no pericardial effusion. There are no obvious intracardiac masses. Technically difficult study because of the poor ultrasonic window. Dr Momo Camilo MD FAC (Electronically Signed) Final Date: 04 August 2023 17:16 S
--- NOTE | 2023-08-04 05:18 | US_ITS ---
WS: [id number] Limited abdomen ultrasound. HISTORY: Evaluate the celiac axis. Evaluate SMA. There is complete obscuration of the SMA and celiac axis by large amount of bowel gas. The aorta is n ot visualized either. IMPRESSION: Nonvisualization of the aorta and mesenteric arteries due to bowel gas.
[2023-08-04] MEDS: pantoprazole 40 mg SDV IVP (05:26)
[2023-08-04] MEDS: aspirin 300 mg Supp PR (05:26)
[2023-08-04 05:27] LABS: Thyroid Stimulating Hormone 1.19 uIU/mL (0.27-4.20)
[2023-08-04 05:36] LABS: ABG PCO2 57.6 mmHg (35-45); ABG PH Result 7.28 (7.35-7.45); Alveolar-Arterial Oxygen Gradi 17.9 mmHg (5-10); Arterial Blood Gas Hematocrit 41.1 % (42-52); Base Excess ABG -0.8 mmol/L (-2.0-2.0); Blood Gas Allen Test Pos; Blood Gas Sample Site Radial, left; Blood Gas Sample Type Arterial; Carboxyhemoglobin 1.6 %THgb (0.4-20.1); HGB O2 Sat 98.7 % (95-100); Ionized Calcium Level - ABG 1.1 mmol/L (1.1-1.4); Methemoglobin < 0.0 % (0.4-1.5); Oxygen Device BIPAP; Oxygen Saturation ABG > 100.0; PO2 FiO2 Ratio Arterial Blood 0; Potassium Level - ABG 4.6 mmol/L (3.5-5.0); Total Hemoglobin 13.4 g/dL (14-18)
[2023-08-04] MEDS: cefepime 1,000 MG in sodium chloride 0.9% (plus) 50 ML 100 MG IV ×2 (06:03→19:29)
[2023-08-04 06:10] LABS: Magnesium 2.1 mg/dL (1.7-2.3)
[2023-08-04] MEDS: albumin 37.5 GM/150 ML VIAL IV (06:24)
--- NOTE | 2023-08-04 07:04 | PC.PHAR ---
[id number] Vancomycin - pt parameters require adjusted dosing and frequency. 1st dose 1500 mg in ER 08/04@0118, continue at 2,000 mg q24h lab 08/07 before 4th dose 1900
[2023-08-04 07:23] LABS: Glucose Point of Care 256 mg/dL (70-110)
[2023-08-04 07:24] LABS: Protein Urine 1+ (Negative); Urine Appearance Cloudy (CLEAR); Urine Color Yellow (Yellow); pH Urine 5 (5-7)
[2023-08-04 07:25] LABS: Add Urine Microscopic? YES; Bilirubin Urine 1+ (Negative); Blood Urine 3+ (Negative); Glucose Urine UA 1+ (Normal); Ketones Urine Negative (Negative); Leukocyte Esterase Urine Negative (Negative); Nitrate Urine Negative (Negative); Urobilinogen Urine 4 mg/dL (Negative)
[2023-08-04 07:26] LABS: Add Urine Culture? Yes; Amorphous Sediment Urine 1+ /hpf; Bacteria Urine 2+ /hpf; Fine Granular Casts Urine 0-4 /lpf; Mucus Urine TRACE /hpf; RBC Urine 15-25 /hpf (0-2); Squamous Epithelial Cell Urine 0-4 /hpf (0-5)
[2023-08-04 09:00] LABS: ABG PH Result 7.26 (7.35-7.45); Alveolar-Arterial Oxygen Gradi 12.9 mmHg (5-10); Blood Gas Allen Test Pos; Blood Gas Operator Identificat CAK; Blood Gas Sample Site Radial, left; Blood Gas Sample Type Arterial; Carboxyhemoglobin 1.6 %THgb (0.4-20.1); HCO3 ABG 27.2 mmol/L (22-26); Ionized Calcium Level - ABG 1.1 mmol/L (1.1-1.4); Methemoglobin 0.5 % (0.4-1.5); Oxygen Device BIPAP; Oxygen Saturation ABG 99.1; PO2 FiO2 Ratio Arterial Blood 0; Potassium Level - ABG 4.8 mmol/L (3.5-5.0); Total Hemoglobin 12.7 g/dL (14-18)
[2023-08-04] MEDS: insulin lispro 100 unit/1 mL SUBCUT ×3 (09:07→19:28)
[2023-08-04 09:23] LABS: Partial Thromboplastin Time 40.4 SECONDS (23.9-36.7)
[2023-08-04 09:30] LABS: Lactate (Lactic Acid level) 1.6 mmol/L (0.5-2.2)
--- NOTE | 2023-08-04 10:18 | PC.NURSE ---
C/O Extreme pain in right shoulder for the last 6 days. Very tender to touch. Pt yells when it is moved or touched. states he used a post limousine driver to manually drive fence posts in the ground on Friday and Friday of last week. Went to Urgent Care last Friday for xray. Pt was prescribed Hydrocodone and muscle relaxer with no relief. Requesting further scans. notified.
[2023-08-04] MEDS: insulin glargine 100 units/1 mL 30 UNIT SUBCUT ×2 (10:20→19:28)
[2023-08-04 11:43] LABS: Glucose Point of Care 322 mg/dL (70-110)
--- NOTE | 2023-08-04 13:08 | PM.MISC ---
Miscellaneous Note Note: Hypercapnia worsened Patient is arousable We will be redirectable However very drowsy at the bedside Patient is currently on BiPAP Anasarca Lower extremity edema with healing wound Patient arousable to verbal commands Bilateral assisted breath sounds Distended abdomen Manuel catheter in place Non-STEMI: No active chest pain Could be related to PE PE: Continue heparin Hypoxic hypercapnic respite failure Hypercapnia has not improved Increased minute ventilation, repeat ABG this afternoon Patient is full code for now stating that she would like to discuss with his daughter and then let us know later in the day Severe leukocytosis, leukemoid versus CLL? Hyponatremia with CHF carries poor prognosis Acute on chronic kidney disease creatinine 2.2 Hyperglycemia: Adjust insulin regimen UTI: Continue antibiotics Currently on vancomycin and cefepime , MRSA nares pending
[2023-08-04 13:26] LABS: ABG PCO2 52.6 mmHg (35-45); ABG PH Result 7.32 (7.35-7.45); Arterial Blood Gas Hematocrit 39.2 % (42-52); Base Excess ABG 0.4 mmol/L (-2.0-2.0); Blood Gas Allen Test Pos; Blood Gas Operator Identificat CAK; Blood Gas Sample Site Brachial, left; Blood Gas Sample Type Arterial; HCO3 ABG 27.3 mmol/L (22-26); Oxygen Device BIPAP; PO2 ABG 78.6 mmHg (80.0-100.0); PO2 FiO2 Ratio Arterial Blood 0
[2023-08-04] MEDS: heparin drip 25,000 UNIT/500 ML PREMIX 47 UNIT IV (15:11)
[2023-08-04] MEDS: naloxone 0.4 mg/ml SDV IVP (16:03)
[2023-08-04 16:33] LABS: Partial Thromboplastin Time 33.8 SECONDS (23.9-36.7)
[2023-08-04 16:42] LABS: ABG PCO2 48.4 mmHg (35-45); ABG PH Result 7.36 (7.35-7.45); Arterial Blood Gas Hematocrit 38.4 % (42-52); Base Excess ABG 1.1 mmol/L (-2.0-2.0); Blood Gas Allen Test Pos; Blood Gas Operator Identificat BROMA; Blood Gas Sample Site Radial, right; Blood Gas Sample Type Arterial; HCO3 ABG 27.2 mmol/L (22-26); PO2 ABG 77.5 mmHg (80.0-100.0); PO2 FiO2 Ratio Arterial Blood 0
[2023-08-04 16:44] LABS: Oxygen Device BIPAP
[2023-08-04 16:46] LABS: ABG PCO2 60.3 mmHg (35-45)
--- NOTE | 2023-08-04 17:02 | PM.CONSULT ---
Providers/Reason For Consult Consulting Physician/Specialty*: Cardiovascular medicine Reason for Consult*: Elevated troponin Requesting Physician: Hospitalist Attending Physician: Yenny Meyers MD Primary Care Provider: Latoya Dumont DO History of Present Illness History of Present Illness Frank Estes Jr is a 62 year old male here at the hospital very early this morning after being seen in the emergency room. He originally called 911 shortly after midnight because of weakness. He initially refused to come to the hospital. The ambulance drivers were called back later when his weakness became worse. His and daughter noted that his blood sugar was elevated above 400 and has been so for couple days. Patient is apparently a hoarder and that ambulance drivers had a hard time getting the gurney into the house. He was hypoxic with an O2 saturation of 78%, short of breath, incontinent of urine and having difficulty breathing. He was admitted and placed on BiPAP. His initial white blood cell count was above 33,000. His creatinine is 2.2 with a BUN of 90. His previous BUN and creatinine are 31 and 1.1. His glomerular filtration rate currently is 30. His lactic acid is 2.6. His troponin was 101, 112 and 120. His PO2 was above 100 but PCO2 was 76 and pH 7.2. His BUN is above 16,000. He was given 80 mg of Lasix IV. His chest x-ray is difficult to interpret but may reveal congestive heart failure. CT of his chest showed a pulmonary embolism. He is hyponatremic with a sodium of 127. He is also thought to have pneumonia. His family states that he has had a viral illness in the recent past. His EKG shows sinus rhythm with ST and T wave changes in the anterolateral leads. He has a history of insulin requiring diabetes, amputation of the toe, peripheral arterial disease with stents in both common iliac arteries, hypertension, osteomyelitis of the finger and morbid obesity. Apparently the cilnical scientist on-call last night was called to see him after midnight. He did not do so. I found out about this not too long ago. I assume we were asked to see him because of the elevated troponin. Patient's and daughter in the room. He is awake but not able to respond appropriately to questions. He remains on a BiPAP mask. Review of Systems Narrative: Review of systems is unavailable due to him being on a BiPAP mask. Medications/Allergies Home Medications Medication Instructions Recorded Confirmed Last Taken Type amlodipine 10 mg tablet 10 mg PO DAILY 30 days #30 tabs 12/05/21 08/04/23 08/03/23 Rx insulin syringe-needle U-100 1 mL #200 ea 07/24/22 08/04/23 Unknown Rx 31 gauge x 15/64 (BD Veo Insulin Syringe Ultra-Fine) diabetic shoes #1 ea 01/30/23 08/04/23 Unknown Rx aspirin 325 mg tablet 325 mg PO DAILY 03/21/23 08/04/23 08/03/23 History insulin syringe-needle U-100 1 mL #200 ea 04/23/23 08/04/23 Unknown Rx 31 gauge x 5/16 (BD Insulin Syringe Ultra-Fine) dulaglutide 3 mg/0.5 mL See Rx Instructions .Route 05/30/23 08/04/23 Unknown Rx subcutaneous pen injector .COMPLEX #4 mL (Trulicity) insulin glargine 100 unit/mL See Rx Instructions SUBCUT BID 90 05/30/23 08/04/23 08/03/23 Rx subcutaneous solution (Lantus days #10 mL U-100 Insulin) blood sugar diagnostic (Accu-Chek #100 ea 06/26/23 08/04/23 Unknown Rx Violeta Plus test strips) cyclobenzaprine 10 mg tablet 10 mg PO TID PRN muscle spasm #30 07/31/23 08/04/23 Unknown Rx tabs hydrocodone 5 mg-acetaminophen 325 1 tab PO TID PRN pain 7 days #21 07/31/23 08/04/23 Unknown Rx mg tablet tabs albuterol sulfate 90 mcg/actuation 2 puff inhalation QID PRN 08/04/23 08/04/23 Unknown History aerosol inhaler (Ventolin HFA) Shortness Of Breath carvedilol 6.25 mg tablet 6.25 mg PO BID 08/04/23 08/04/23 08/03/23 History hydrochlorothiazide 25 mg tablet 25 mg PO DAILY 08/04/23 08/04/23 08/03/23 History indomethacin 50 mg capsule 50 mg PO TID PRN gout 08/04/23 08/04/23 Unknown History lisinopril 10 mg tablet 10 mg PO DAILY 08/04/23 08/04/23 08/03/23 History metformin 500 mg tablet 500 mg PO BID 08/04/23 08/04/23 08/03/23 History rosuvastatin 10 mg tablet 10 mg PO DAILY 08/04/23 08/04/23 08/03/23 History Allergies Allergy/AdvReac Type Severity Reaction Status Date / Time No Known Allergies Allergy Verified 08/03/23 22:57 Current Medications Generic Name Dose Route Start Last Admin Trade Name Freq PRN Reason Stop Dose Admin Aspirin 300 mg 08/04/23 04:50 08/04/23 05:26 Aspirin 300 Mg Supp NC 300 mg DAILY ESAU Administration Heparin Sodium (Porcine) 0 unit 08/04/23 02:15 08/04/23 02:52 Heparin 5,000 Unit/Ml Inj 1 Ml IV 2,800 unit PRN PRN Administration Heparin weight-base protocol Protocol Heparin Sodium/Sodium Chloride 25,000 unit in 500 mls @ 0 mls/hr 08/04/23 02:15 08/04/23 15:11 Heparin Drip IV 17.27 unit/kg/hr .Q0M ESAU 47 mls/hr Administration Protocol Per Protocol Cefepime HCl 1,000 mg/ Sodium 50 mls @ 100 mls/hr 08/04/23 07:00 08/04/23 06:34 Chloride IV Infused Q12H ESAU Infusion Protocol Insulin Glargine 30 unit 08/04/23 09:00 08/04/23 10:20 Insulin Glargine 100 Units/1 Ml SUBCUT 30 unit BID ESAU Administration Insulin Human Lispro 0 unit 08/04/23 07:30 08/04/23 14:29 Insulin Lispro 100 Unit/1 Ml SUBCUT 12 unit Q6H ESAU Administration Protocol Pantoprazole Sodium 40 mg 08/04/23 04:45 08/04/23 05:26 Pantoprazole 40 Mg Sdv IVP 40 mg Q24H ESAU Administration PFSH Acute PFSH: Medical History (Updated 08/04/23 @ 17:08 by James Shen MD) Amputation of left great toe Arthralgia of back Arthropathy of lumbar facet joint Benign essential HTN Chronic pain of both shoulders Diabetic ulcer of right foot associated with diabetes mellitus due to underlying condition, 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 Dyslipidemia Elevated troponin Encounter for long-term use of opiate analgesic Fracture of distal phalanx of right middle finger History of amputation of toe Infection of finger Opioid contract 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 Pain in right foot Spinal stenosis, lumbar region without neurogenic claudication 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 Uncontrolled type 2 diabetes mellitus, with long-term current use of insulin Surgical History H/O right knee surgery Hx laparoscopic cholecystectomy Hx of foot surgery Family History Unknown Diabetes Father Stroke Social History Smoking and tobacco/nicotine status: former use of tobacco/nicotine Second hand smoke exposure: No Alcohol intake: never Substance/Drug Use: never Vitals/I&O/Wt Last Vital Signs Temp 98.1 F 08/03/23 22:44 Pulse 60 08/04/23 15:00 Resp 21 H 08/04/23 12:30 BP 123/75 08/04/23 12:30 Pulse Ox 95 08/04/23 15:00 O2 Del Method BiPAP 08/04/23 08:00 O2 Flow Rate 50 08/04/23 02:29 FiO2 30 08/04/23 15:00 08/04/23 08/04/23 08/04/23 06:59 14:59 22:59 Intake Total 508.585 / 508.585 391.415 / 391.415 Output Total 100 / 100 Balance 408.585 / 408.585 391.415 / 391.415 Weight last 48 hrs Weight 334 lb Weight 300 lb Physical Exam Narrative: GENERAL: In general he is struggling slightly to breathe on a BiPAP mask. HEENT: Exam within normal limits. NECK: Supple without jugular vein distention. The carotid upstroke is normal without bruits. BACK: Exam normal. LUNGS: Clear. HEART: Regular rate and rhythm. ABDOMEN: Benign without organomegaly or tenderness. EXTREMITIES: No edema. Toe amputation NEUROLOGIC: Exam normal. SKIN: Unremarkable. Urinary Catheter Management: Manuel: Cath Placed During This Visit: yes Reason for Continuing Indwelling Catheter: Accurate Measurement of Urinary Output in Critically Ill Patients Urinary Catheter Date of Insertion: 08/04/23 Urinary Catheter Time of Insertion: 05:12 Data 08/04/23 02:24 08/03/23 23:30 Micro: Microbiology 08/04/23 06:20 Legionella Urinary Antigen - Final Urine Suprapubic 08/04/23 06:20 Bacterial Antigens - Final Urine Suprapubic 08/03/23 22:22 Blood Culture - Preliminary Blood SPECIMEN COLLECTED 08/03/23 23:30 Blood Culture - Preliminary Blood SPECIMEN COLLECTED A&P Assessment and plan (1) Hyperglycemia: (2) Leukocytosis: (3) Hyponatremia: (4) VERONICA (acute kidney injury): (5) Pulmonary embolism: (6) Acute decompensated heart failure: (7) CAP (community acquired pneumonia): (8) Acute respiratory failure with hypoxia and hypercapnia: (9) Pulmonary edema: (10) Type 2 diabetes mellitus, with long-term current use of insulin: (11) Osteomyelitis of finger of right hand: (12) Peripheral artery disease: (13) Dyslipidemia: (14) Benign essential HTN: (15) Elevated troponin: (16) 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: Plan At this point there is no indication for any cardiac testing. The troponins could easily be related to the pulmonary embolus among other things. He does have some EKG changes in the anterolateral leads but clearly is not having an ST elevation DC. He has pneumonia, pulmonary embolism, respiratory acidosis, heart failure and glucose intolerance should be treated before any other testing should be undertaken with respect to his heart. I spoke to his and daughter at length about all of this. We will follow along and see if any testing is necessary as things improve. Consult Attestations Medical Necessity Statement: Intensive care unit care required for multitude of medical problems as listed. and High Time for a total of 65 minutes, includes reviewing past or interval history, examining/interviewing patient, counseling patient/family/other support, updating patient/family/other support, communicating with other healthcare providers and documenting encounter Diagnoses Hyperglycemia R73.9 Leukocytosis D72.829 Hyponatremia E87.1 VERONICA (acute kidney injury) N17.9 Pulmonary embolism I26.99 Acute decompensated heart failure I50.9 CAP (community acquired pneumonia) J18.9 Acute respiratory failure with hypoxia and hypercapnia J96.01; J96.02 Pulmonary edema J81.1 Type 2 diabetes mellitus, with long-term current use of insulin E11.9; Z79.4 Osteomyelitis of finger of right hand M86.9 Peripheral artery disease I73.9 Dyslipidemia E78.5 Benign essential HTN I10 Elevated troponin R79.89 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 I70.203
[2023-08-04 18:25] LABS: Glucose Point of Care 194 mg/dL (70-110)
--- NOTE | 2023-08-04 20:05 | PC.NURSE ---
Message left with Dr Meyers that pt would benefit from a wound care consult based on numerous healing ulcers. Large DTI on buttocks will need addressed. nor daughter aware of its presence. Pt denied knowledge of DTI on buttocks. Both shown area, with pt's permission, while removing pt from bedpan. Admitted to sitting on couch for extended periods of time. Family and pt educated of importance of repositioning every two hours. Pt and family also informed that this DTI has more than likely been developing much longer than this illness.
[2023-08-04] MEDS: vancomycin 2,000 MG/400 ML PIGGYBACK 200 MG IV (20:59)
[2023-08-04 21:20] LABS: Partial Thromboplastin Time 50.5 SECONDS (23.9-36.7)
[2023-08-05] VITALS (38 sets, daily range): BP systolic 101–179; BP diastolic 52–87; PULSE 55–114; RESP 14–38; TEMP 36.7–37; O2SAT 86–99
[2023-08-05 01:10] LABS: Glucose Point of Care 131 mg/dL (70-110)
[2023-08-05] MEDS: heparin drip 25,000 UNIT/500 ML PREMIX 53 UNIT IV (02:23)
[2023-08-05 04:11] LABS: Basophils # 0.1 10^3/uL (0.0-0.1); Basophils % 0.4 %; Eosinophils # 0.1 10^3/uL (0.0-0.8); Eosinophils % 0.3 %; Hematocrit 38.9 % (37-53); Mean Corpuscular HGB Conc 31.4 g/dL (30-55); Mean Corpuscular Hemoglobin 28.2 pg (27-33); Mean Corpuscular Volume 89.8 fl (82-101); Mean Platelet Volume 13.6 fL (7.4-10.4); Monocytes # 2.5 10^3/uL (0.2-0.9); Monocytes % 7.3 %; Neutrophils # 28.31 10^3/uL (1.8-7.7); Neutrophils % 83.7 %; Nucleated Red Blood Cells % 0 %; Platelet Count 198 10^3/cmm (157-399); Red Blood Count 4.33 10^6/uL (3.85-5.65); Red Cell Distribution Width 14.6 % (12.1-15.1)
[2023-08-05 04:19] LABS: Partial Thromboplastin Time 48.1 SECONDS (23.9-36.7)
[2023-08-05] MEDS: heparin 5,000 unit/mL INJ 1 mL IV (04:27)
[2023-08-05] MEDS: pantoprazole 40 mg SDV IVP (04:29)
[2023-08-05 04:33] LABS: Alanine Aminotransferase 22 U/L (0-41); Albumin Level 2.5 g/dL (3.5-5.2); Alkaline Phosphatase 248 U/L (40-130); Anion Gap 15.8 (5-19); Aspartate Amino Transferase 40 U/L (0-40); Calcium 8.4 mg/dL (8.5-10.5); Carbon Dioxide 27 mmol/L (22-29); Chloride 94 mmol/L (98-107); Globulin 3.1 g/dL (1.3-4.6); Glomerular Filtration Rate 19.1 mL/min (90-130); Glucose 146 mg/dL (65-115); Potassium 4.8 mmol/L (3.5-5.1); Sodium 132 mmol/L (136-145); Total Bilirubin 1.3 mg/dL (0.15-1.2); Total Protein 5.6 g/dL (6.6-8.7)
[2023-08-05 04:40] LABS: Osmolality Calculated 315 mOsm/kg (285-295)
[2023-08-05 04:41] LABS: Blood Urea Nitrogen 121 mg/dL (8-23)
[2023-08-05 04:42] LABS: Creatine Phosphokinase 1434 U/L (39-308); Slide Review Slide Review Perform; White Blood Count 33.81 10^3/uL (3.29-11.43)
[2023-08-05 05:16] LABS: ABG PCO2 50.4 mmHg (35-45); ABG PH Result 7.32 (7.35-7.45); Arterial Blood Gas Hematocrit 36.5 % (42-52); Base Excess ABG -0.7 mmol/L (-2.0-2.0); Blood Gas Allen Test Pos; Blood Gas Operator Identificat JB; Blood Gas Sample Site Radial, right; Blood Gas Sample Type Arterial; Blood Gas Tidal Volume 0.45; HCO3 ABG 25.9 mmol/L (22-26); Oxygen Device BIPAP; PO2 ABG 71.9 mmHg (80.0-100.0); PO2 FiO2 Ratio Arterial Blood 0
[2023-08-05] MEDS: cefepime 1,000 MG in sodium chloride 0.9% (plus) 50 ML 100 MG IV ×2 (06:50→19:55)
--- NOTE | 2023-08-05 07:00 | CTR_ITS ---
PROCEDURE INFORMATION: Exam: CT Right Upper Extremity Without Contrast, Shoulder Exam date and time: 08/05/2023 3:32 PM Age: 62 years old Clinical indication: Pain; Shoulder; Right; Additional info: Shoulder pain TECHNIQUE: Imaging protocol: Computed tomography of the right upper extremity without contrast. Exam focused on the shoulder. Radiation optimization: All CT scans at this facility use at least one of these dose optimization techniques: automated exposure control; mA and/or kV adjustment per patient size (includes targeted exams where dose is matched to clinical indication); or iterative reconstruction. REPORTING DATA: Count of CT and Cardiac NM exams in prior 12 months: This patient has received 2 known CTs and 0 known cardiac nuclear medicine studies in the 12 months prior to the current study. COMPARISON: CR XR shoulder RT min 2V* [id number] 07/31/2023 2:42 PM RADIATION DOSE METRICS: Total DLP (mGy-cm): 836 FINDINGS: Bones/joints: No acute fracture or dislocation. Moderate glenohumeral and AC joint degenerative changes. Soft tissues: Thick soft tissue density containing gas overlies the AC joint measuring approximately 4.6 x 1.8 cm on sagittal image 58. This abuts the trapezius muscle and appears to extend into the joint space. No underlying osseous destruction. CT/CT shoulder RT wo con* [id number] IMPRESSION: Thick soft tissue density containing gas overlying the AC joint, nonspecific and in the absence of recent procedure differential considerations include developing infectious collection, sequela of recent trauma or necrotic lesion. Follow-up recommended.
[2023-08-05 07:09] LABS: Glucose Point of Care 178 mg/dL (70-110)
--- NOTE | 2023-08-05 07:50 | P.PN_ITS ---
Subjective Subjective: Frank is largely unchanged from yesterday. His white blood cell count is still quite high 33,000. His blood gas is improved. He is still mildly acidotic with a pH of 7.32. His PCO2 has come down now at 50. His PO2 is 72. He still is requiring BiPAP. He is asleep this morning. His creatinine has gone up to 3.3. His BUN is up to 121. Glomerular filtration rate is down to 19. His echo r evealed normal LV function and size with mild left ventricular hypertrophy. There is moderate to severe aortic stenosis with a mean gradient of 34.8 mmHg and a valve area of 0.93 cm?. Vitals/I&O/Wt Last Vital Signs Temp 98.6 F 08/05/23 06:49 Pulse 61 08/05/23 07:46 Resp 14 08/05/23 07:46 BP 169/67 08/05/23 06:49 Pulse Ox 95 08/05/23 07:46 O2 Del Method BiPAP 08/05/23 07:46 O2 Flow Rate 2 08/04/23 20:00 FiO2 30 08/05/23 07:46 08/04/23 08/05/23 08/05/23 22:59 06:59 14:59 Intake Total 416.716 / 808.131 339.284 / 1147.415 Output Total 300 / 300 350 / 650 Balance 116.716 / 508.131 -10.716 / 497.415 Weight last 48 hrs Weight 330 lb Weight 334 lb Weight 300 lb Physical Exam Narrative: GENERAL: In general he is asleep. HEENT: Exam within normal limits. NECK: Supple without jugular vein distention. The carotid upstroke is normal without bruits. BACK: Exam normal. LUNGS: Clear. HEART: Regular rate and rhythm. ABDOMEN: Benign without organomegaly or tenderness. EXTREMITIES: No edema. NEUROLOGIC: Exam normal. SKIN: Unremarkable. Urinary Catheter Management: Manuel: Cath Placed During This Visit: yes Reason for Continuing Indwelling Catheter: Accurate Measurement of Urinary Output in Critically Ill Patients Urinary Catheter Date of Insertion: 08/04/23 Urinary Catheter Time of Insertion: 05:12 Data 08/05/23 03:36 08/05/23 03:36 Micro: Microbiology 08/03/23 23:30 Blood Culture - Preliminary Blood Staphylococcus aureus 11/12/23 22:22 Blood Culture - Preliminary Blood Staphylococcus aureus 08/04/23 06:20 Legionella Urinary Antigen - Final Urine Suprapubic 08/04/23 06:20 Bacterial Antigens - Final Urine Suprapubic A&P Assessment and plan (1) 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: (2) Elevated troponin: (3) VERONICA (acute kidney injury): (4) Pulmonary embolism: (5) Acute decompensated heart failure: (6) CAP (community acquired pneumonia): (7) Type 2 diabetes mellitus, with long-term current use of insulin: (8) Aortic stenosis: Plan The troponin elevation is not entirely consistent with a type I myocardial infarction. My suspicion is this is a type II myocardial infarction. His creatinine is increasing and so obviously angiography is not indicated. He is also still too ill for other cardiac testing. His vitals are stable. We will let these other things sorted out before we figure out what to do with his cardiac situation. The gradient across the aortic valve would suggest moderate to severe aortic stenosis. Obviously this cannot be dealt with at this time and will be more further evaluated later. We will continue to follow. Attestations Medical Necessity Statement*: Requires continued hospitalization for management of the above-mentioned serious medical problems and Moderate Time for a total of 35 minutes, includes reviewing past or interval history, examining/interviewing patient, updating patient/family/other support, communicating with other healthcare providers, documenting encounter and coordinating care Diagnoses 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 I70.203 Elevated troponin R79.89 VERONICA (acute kidney injury) N17.9 Pulmonary embolism I26.99 Acute decompensated heart failure I50.9 CAP (community acquired pneumonia) J18.9 Type 2 diabetes mellitus, with long-term current use of insulin E11.9; Z79.4 Aortic stenosis I35.0
[2023-08-05] MEDS: insulin glargine 100 units/1 mL 30 UNIT SUBCUT ×2 (09:18→18:14)
[2023-08-05] MEDS: acetaminophen 325 mg Tablet 650 MG PO (09:19)
[2023-08-05] MEDS: metroNIDAZOLE IV 500 MG/100 ML PREMIX 100 MG IV ×2 (09:20→17:16)
[2023-08-05 10:47] LABS: Partial Thromboplastin Time 64.2 SECONDS (23.9-36.7)
--- NOTE | 2023-08-05 11:00 | CTR_ITS ---
PROCEDURE INFORMATION: Exam: CT Right Lower Extremity Without Contrast, Foot Exam date and time: 08/05/2023 3:29 PM Age: 62 years old Clinical indication: Swelling, leg or foot and other: Abscess; Additional info: Abscess RT foot TECHNIQUE: Imaging protocol: CT of the right lower extremity without contrast was performed. Exam focused on the foot. Radiation optimization: All CT scans at this facility use at least one of these dose optimization techniques: automated exposure control; mA and/or kV adjustment per patient size (includes targeted exams where dose is matched to clinical indication); or iterative reconstruction. REPORTING DATA: Count of CT and Cardiac NM exams in prior 12 months: This patient has received 2 known CTs and 0 known cardiac nuclear medicine studies in the 12 months prior to the current study. COMPARISON: CT angio abd aorta runof [id number] 01/25/2023 1:47 PM RADIATION DOSE METRICS: Total DLP (mGy-cm): 153 FINDINGS: Bones/joints: No evidence of acute osteomyelitis. Subacute fracture fragment of the 4th metatarsal. Extensive postsurgical and degenerative changes. Soft tissues: Extensive soft tissue swelling without sinus tract or loculated/drainable collection. CT/CT foot RT wo con* [id number] IMPRESSION: No evidence of acute osteomyelitis. MRI could be considered for much greater sensitivity given presence of extensive degenerative, postsurgical and soft tissue changes.
--- NOTE | 2023-08-05 11:01 | PM.PN ---
Subjective Subjective: MRSA bacteremia with worsening leukocytosis Persistent hypercapnia Repeat cultures today Most likely source is right foot open wound with purulent discharge Requesting CT skin of right foot We will request podiatry consultation Patient has not spiked fever Added metronidazole to vancomycin and cefepime Appreciate cardiology recommendations Vitals/I&O/Wt Last Vital Signs Temp 98.1 F 08/05/23 09:30 Pulse 66 08/05/23 09:30 Resp 18 08/05/23 09:30 BP 155/59 08/05/23 09:30 Pulse Ox 96 08/05/23 09:30 O2 Del Method BiPAP 08/05/23 09:30 O2 Flow Rate 2 08/04/23 20:00 FiO2 30 08/05/23 09:30 08/04/23 08/05/23 08/05/23 22:59 06:59 14:59 Intake Total 416.716 / 808.131 339.284 / 1147.415 810 / 810 Output Total 300 / 300 350 / 650 Balance 116.716 / 508.131 -10.716 / 497.415 810 / 810 Weight last 48 hrs Weight 149.685 kg Weight 151.5 kg Weight 136.078 kg Physical Exam Narrative: Patient is arousable He knows that he is in the hospital Currently on BiPAP Right foot open wound with drainage of pus noted plantar surface Stage I sacral ulcer skin sloughed off Manuel catheter in place Signs of fluid overload present Abdomen distended, nontender S1, S2 Afebrile No sign meningitis Right shoulder is tender to touch Urinary Catheter Management: Manuel: Cath Placed During This Visit: yes Reason for Continuing Indwelling Catheter: Accurate Measurement of Urinary Output in Critically Ill Patients Urinary Catheter Date of Insertion: 08/04/23 Urinary Catheter Time of Insertion: 05:12 Data 08/05/23 03:36 08/05/23 03:36 Micro: Microbiology 08/05/23 10:28 Blood Culture - Preliminary Blood SPECIMEN COLLECTED 08/05/23 10:23 Blood Culture - Preliminary Blood SPECIMEN COLLECTED 08/04/23 18:25 Gram Stain - Final Sputum - Expectorated Sputum 08/03/23 23:30 Blood Culture - Preliminary Blood Staphylococcus aureus 08/03/23 22:22 Blood Culture - Preliminary Blood Staphylococcus aureus 08/04/23 06:20 Legionella Urinary Antigen - Final Urine Suprapubic 08/04/23 06:20 Bacterial Antigens - Final Urine Suprapubic A&P Assessment and plan (1) Aortic stenosis: (2) 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: (3) Elevated troponin: (4) Hyperglycemia: (5) Leukocytosis: (6) Hyponatremia: (7) VERONICA (acute kidney injury): (8) Pulmonary embolism: (9) NSTEMI (non-ST elevated myocardial infarction): (10) Acute decompensated heart failure: (11) CAP (community acquired pneumonia): (12) Acute respiratory failure with hypoxia and hypercapnia: (13) Pulmonary edema: (14) Type 2 diabetes mellitus, with long-term current use of insulin: (15) S/P foot surgery: (16) Non-pressure chronic ulcer of other part of right foot with necrosis of bone: (17) Diabetic ulcer of right foot: (18) Peripheral artery disease: (19) CKD stage 3 due to type 2 diabetes mellitus: Plan Persistent hypercapnia with underlying hypoxia Patient is BiPAP dependent He did improve with BiPAP usage No plan for intubation as of now Acute diastolic CHF exacerbation Appreciate cardiology recommendations No plan for coronary ischemic evaluation at this point Patient not complaining of active chest pain Aortic stenosis, judicious use of diuretics, Acute PE Currently on heparin drip without significant hemodynamic instability Significant leukocytosis MRSA bacteremia Source seems to be right foot with active purulent drainage, right foot CT scan requested without contrast Dr. Smith will be consulted today Patient is on vancomycin cefepime metronidazole added today Right shoulder pain: Requested CT as well I do suspect rotator cuff muscle injury, x-ray of the shoulder did not show any fractures Acute on chronic kidney disease No active acidosis Creatinine has worsened to 3.3 Potassium 4.8 Patient clinically is fluid overloaded I will continue diuresis will consult nephro by tomorrow Urine output around 650 mL Mesenteric ischemia with underlying vascular disease No active signs of peritonitis Lactic acid improved I do believe leukocytosis is infectious in nature not consistent with CLL MRSA bacteremia likely sources right foot No active abdominal pain endorsed by the patient today Patient is full code Consistent carb diet Will speak with nephrology and podiatry today Family updated yesterday Goals of care discussed patient is full code Attestations Medical Necessity Statement*: Continue ICU management and High Time for a total of 45 minutes, includes reviewing past or interval history, examining/interviewing patient, placing orders, counseling patient/family/other support, updating patient/family/other support, discussing plan of care with staff, communicating with other healthcare providers, documenting encounter and coordinating care Diagnoses Aortic stenosis I35.0 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 I70.203 Elevated troponin R79.89 Hyperglycemia R73.9 Leukocytosis D72.829 Hyponatremia E87.1 VERONICA (acute kidney injury) N17.9 Pulmonary embolism I26.99 NSTEMI (non-ST elevated myocardial infarction) I21.4 Acute decompensated heart failure I50.9 CAP (community acquired pneumonia) J18.9 Acute respiratory failure with hypoxia and hypercapnia J96.01; J96.02 Pulmonary edema J81.1 Type 2 diabetes mellitus, with long-term current use of insulin E11.9; Z79.4 S/P foot surgery Z98.890 Non-pressure chronic ulcer of other part of right foot with necrosis of bone L97.514 Diabetic ulcer of right foot E11.621; L97.519 Peripheral artery disease I73.9 CKD stage 3 due to type 2 diabetes mellitus E11.22; N18.30
[2023-08-05 12:06] LABS: Erythrocyte Sedimentation Rate 60 mm/hr (0-10)
[2023-08-05 12:13] LABS: Glucose Point of Care 189 mg/dL (70-110)
[2023-08-05] MEDS: heparin drip 25,000 UNIT/500 ML PREMIX 56 UNIT IV ×2 (12:20→23:11)
[2023-08-05] MEDS: insulin lispro 100 unit/1 mL SUBCUT ×2 (12:20→18:14)
[2023-08-05] MEDS: FUROsemide 10 mg/mL SDV 4mL 40 MG IVP (12:21)
--- NOTE | 2023-08-05 12:38 | PM.CONSULT ---
Providers/Reason For Consult Consulting Physician/Specialty*: Billy Dowell.P.M./podiatry Reason for Consult*: Right foot infected ulceration Attending Physician: Yenny Meyers MD Primary Care Provider: Latoya Dumont DO History of Present Illness History of Present Illness Frank Estes Jr is a 62 year old male who presented to the emergency department on 08/03/2023 via EMS with chief complaint of weakness. Upon arrival to the emergency department he was found to have blood sugars in excess of 400 mg/dL. Patient has a history of type 2 diabetes with multiple lower extremity amputations including left hallux and second digit as well as right foot transmetatarsal amputation. He was admitted to the hospital for further work-up and evaluation. Patient work-up has revealed pulmonary embolus, CHF exacerbation, leukocytosis with MRSA bacteremia. Patient also has wounds to left lower leg as well as sacral ulcer. Also has complaint of right shoulder pain. Podiatry was consulted to evaluate right foot ulceration for likely source of MRSA bacteremia. Patient seen at bedside in the ICU. Patient currently on BiPAP. Review of Systems General: Reports: 10 or more systems reviewed and unremarkable except in HPI and below Const: Denies: fever(s), chills, body aches or change in appetite Eyes: Denies: change in vision or blurry vision Card: Denies: chest pain, palpitations or irregular heart rhythm Resp: Denies: dyspnea GI: Denies: abdominal pain, nausea, vomiting or diarrhea Musc: Reports: joint stiffness Skin/Breast: Reports: non-healing lesions and lesions Neuro: Reports: numbness in extremities Medications/Allergies Home Medications Medication Instructions Recorded Confirmed Last Taken Type amlodipine 10 mg tablet 10 mg PO DAILY 30 days #30 tabs 12/05/21 08/04/23 08/03/23 Rx insulin syringe-needle U-100 1 mL #200 ea 07/24/22 08/04/23 Unknown Rx 31 gauge x 15/64 (BD Veo Insulin Syringe Ultra-Fine) diabetic shoes #1 ea 01/30/23 08/04/23 Unknown Rx aspirin 325 mg tablet 325 mg PO DAILY 03/21/23 08/04/23 08/03/23 History insulin syringe-needle U-100 1 mL #200 ea 04/23/23 08/04/23 Unknown Rx 31 gauge x 5/16 (BD Insulin Syringe Ultra-Fine) dulaglutide 3 mg/0.5 mL See Rx Instructions .Route 05/30/23 08/04/23 Unknown Rx subcutaneous pen injector .COMPLEX #4 mL (Trulicity) insulin glargine 100 unit/mL See Rx Instructions SUBCUT BID 90 05/30/23 08/04/23 08/03/23 Rx subcutaneous solution (Lantus days #10 mL U-100 Insulin) blood sugar diagnostic (Accu-Chek #100 ea 06/26/23 08/04/23 Unknown Rx Violeta Plus test strips) cyclobenzaprine 10 mg tablet 10 mg PO TID PRN muscle spasm #30 07/31/23 08/04/23 Unknown Rx tabs hydrocodone 5 mg-acetaminophen 325 1 tab PO TID PRN pain 7 days #21 07/31/23 08/04/23 Unknown Rx mg tablet tabs albuterol sulfate 90 mcg/actuation 2 puff inhalation QID PRN 08/04/23 08/04/23 Unknown History aerosol inhaler (Ventolin HFA) Shortness Of Breath carvedilol 6.25 mg tablet 6.25 mg PO BID 08/04/23 08/04/23 08/03/23 History hydrochlorothiazide 25 mg tablet 25 mg PO DAILY 08/04/23 08/04/23 08/03/23 History indomethacin 50 mg capsule 50 mg PO TID PRN gout 08/04/23 08/04/23 Unknown History lisinopril 10 mg tablet 10 mg PO DAILY 08/04/23 08/04/23 08/03/23 History metformin 500 mg tablet 500 mg PO BID 08/04/23 08/04/23 08/03/23 History rosuvastatin 10 mg tablet 10 mg PO DAILY 08/04/23 08/04/23 08/03/23 History Allergies Allergy/AdvReac Type Severity Reaction Status Date / Time No Known Allergies Allergy Verified 08/03/23 22:57 Current Medications Generic Name Dose Route Start Last Admin Trade Name Freq PRN Reason Stop Dose Admin Acetaminophen 650 mg 08/04/23 04:39 08/05/23 09:19 Acetaminophen 325 Mg Tablet PO 650 mg Q6H PRN Administration Mild/Mod Pain Or Temp >/= 101 Furosemide 40 mg 08/05/23 12:00 08/05/23 12:21 Furosemide 10 Mg/Ml Sdv 4ml IVP 40 mg Q24H ESAU Administration Heparin Sodium (Porcine) 0 unit 08/04/23 02:15 08/05/23 04:27 Heparin 5,000 Unit/Ml Inj 1 Ml IV 2,700 unit PRN PRN Administration Heparin weight-base protocol Protocol Heparin Sodium/Sodium Chloride 25,000 unit in 500 mls @ 0 mls/hr 08/04/23 02:15 08/05/23 12:20 Heparin Drip IV 20.58 unit/kg/hr .Q0M ESAU 56 mls/hr Administration Protocol Per Protocol Cefepime HCl 1,000 mg/ Sodium 50 mls @ 100 mls/hr 08/04/23 07:00 08/05/23 09:40 Chloride IV Infused Q12H ESAU Infusion Protocol Vancomycin/PEG/NADA/Lysine/Water 2,000 mg in 400 mls @ 200 mls/hr 08/04/23 20:00 08/05/23 09:40 Vancocin IV Infused Q24H ESAU Infusion Metronidazole 500 mg in 100 mls @ 100 mls/hr 08/05/23 08:30 08/05/23 10:28 Flagyl Iv IV Infused Q8H ESAU Infusion Protocol Insulin Glargine 30 unit 08/04/23 09:00 08/05/23 09:18 Insulin Glargine 100 Units/1 Ml SUBCUT 30 unit BID ESAU Administration Insulin Human Lispro 0 unit 08/04/23 07:30 08/05/23 09:13 Insulin Lispro 100 Unit/1 Ml SUBCUT Not Given Q6H [facility] Protocol Insulin Human Lispro 0 unit 08/05/23 08:00 08/05/23 12:20 Insulin Lispro 100 Unit/1 Ml SUBCUT 6 unit TIDWM ESAU Administration Protocol Pantoprazole Sodium 40 mg 08/04/23 04:45 08/05/23 04:29 Pantoprazole 40 Mg Sdv IVP 40 mg Q24H ESAU Administration PFSH Acute PFSH: Medical History (Updated 08/05/23 @ 12:56 by Narinder Smith DPM) Amputation of left great toe Aortic stenosis Arthralgia of back Arthropathy of lumbar facet joint Benign essential HTN Chronic pain of both shoulders Diabetic ulcer of right foot associated with diabetes mellitus due to underlying condition, 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 Dyslipidemia Elevated troponin Encounter for long-term use of opiate analgesic Fracture of distal phalanx of right middle finger History of amputation of toe Infection of finger Opioid contract 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 Pain in right foot Spinal stenosis, lumbar region without neurogenic claudication 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 Uncontrolled type 2 diabetes mellitus, with long-term current use of insulin Surgical History H/O right knee surgery Hx laparoscopic cholecystectomy Hx of foot surgery Family History Unknown Diabetes Father Stroke Social History Smoking and tobacco/nicotine status: former use of tobacco/nicotine Second hand smoke exposure: No Alcohol intake: never Substance/Drug Use: never Vitals/I&O/Wt Last Vital Signs Temp 98.1 F 08/05/23 09:30 Pulse 56 L 08/05/23 12:00 Resp 16 08/05/23 12:00 BP 102/52 08/05/23 12:00 Pulse Ox 94 08/05/23 12:00 O2 Del Method BiPAP 08/05/23 12:00 O2 Flow Rate 2 08/04/23 20:00 FiO2 30 08/05/23 12:00 08/04/23 08/05/23 08/05/23 22:59 06:59 14:59 Intake Total 416.716 / 808.131 339.284 / 4863.597 1302 / 1204 Output Total 300 / 300 350 / 650 Balance 116.716 / 508.131 -10.716 / 609.002 7894 / 1204 Weight last 48 hrs Weight 330 lb Weight 334 lb Weight 300 lb Physical Exam Narrative: BELOW IS A FOCUSED LOWER EXTREMITY EXAM GENERAL: A&O x 3 VASCULAR: DP/PT pulses palpable 2/4 with CFT intact, <3seconds DERMATOLOGICAL: Full-thickness ulceration plantar aspect of right transmetatarsal amputation site, 1.8 x 1.6 cm with 1.5 cm depth, positive probe to bone. Mild active purulent drainage. No appreciable underlying fluctuance MUSCULOSKELETAL: Status post right foot transmetatarsal amputation, tenderness with palpation of periwound area to the right foot. History of left hallux and second digit amputation NEUROLOGICAL: Neurological sensation to the affected foot and ankle is present through L4-S1 dermatomes with no hyper/hypoesthesias, negative Tinel or Valleix's sign Urinary Catheter Management: Manuel: Cath Placed During This Visit: yes Reason for Continuing Indwelling Catheter: Accurate Measurement of Urinary Output in Critically Ill Patients Urinary Catheter Date of Insertion: 08/04/23 Urinary Catheter Time of Insertion: 05:12 Data 08/05/23 03:36 08/05/23 03:36 Micro: Microbiology 08/04/23 06:20 Urine Culture - Preliminary Urine,Clean Catch 08/05/23 10:28 Blood Culture - Preliminary Blood SPECIMEN COLLECTED 08/05/23 10:23 Blood Culture - Preliminary Blood SPECIMEN COLLECTED 08/04/23 18:25 Gram Stain - Final Sputum - Expectorated Sputum 08/03/23 23:30 Blood Culture - Preliminary Blood Staphylococcus aureus 08/03/23 22:22 Blood Culture - Preliminary Blood Staphylococcus aureus 08/04/23 06:20 Legionella Urinary Antigen - Final Urine Suprapubic 08/04/23 06:20 Bacterial Antigens - Final Urine Suprapubic A&P Assessment and plan (1) Non-pressure chronic ulcer of other part of right foot with necrosis of bone: (2) Diabetic ulcer of right foot: (3) Type 2 diabetes mellitus: Plan LABS AND CLINICAL INFO: WBC 33.8 ESR 60 CRP N/A Cultures: Blood culture (08/03/2023) positive for Staph aureus, wound culture (08/05/2023) pending Antibiotics: Vanco/cefepime/Flagyl CT scan pending for right foot and right shoulder Positive pulmonary embolus PLAN: -Okay for diet from podiatry standpoint at this time -Patient has right foot ulceration with although minimal, active purulent drainage. CT scan of right foot is pending. We will evaluate for abscess accumulation. Depending on extent of CT scan findings patient may need to undergo formal incision and drainage with washout in the operating room. However, this decision cannot be made until CT scan results are obtained. Positive probe to bone indicates clinical osteomyelitis. CT scan will provide further insight to the extent and future management of this wound. -Continue IV antibiotic therapy -Monitor cultures -Daily dressing changes using Hydrofera Blue, dry sterile dressing -Podiatry will continue to round on patient and provide recommendations based on work-up Coding Level of Care Code Acute Code for Chg Fwd Diagnoses Non-pressure chronic ulcer of other part of right foot with necrosis of bone L97.514 Diabetic ulcer of right foot E11.621; L97.519 Type 2 diabetes mellitus E11.9
[2023-08-05 13:14] LABS: Methicillin-Resist S.aureu PCR NOT DETECTED (NOT DETECTED)
[2023-08-05 14:39] LABS: Potassium, Radom Urine 29 mmol/L
[2023-08-05 14:41] LABS: Urine Random Chloride 12 mmol/L; Urine Random Sodium 12 mmol/L
[2023-08-05 14:44] LABS: Creatinine Urine, Random 250 mg/dL (39-259); Microalbumin Random Urine 11 ug/dL (0-20)
[2023-08-05 14:45] LABS: Microalbum Creatinine Ratio Ur 44 mg/dL (0-20)
[2023-08-05 15:16] LABS: Eosinophil Urine No Eosinophils Seen; Urine Eosinophil Count 0 (0-0)
--- NOTE | 2023-08-05 16:28 | PM.CONSULT ---
Providers/Reason For Consult Consulting Physician/Specialty*: [facility] /Nephrology Reason for Consult*: Acute on CKD Attending Physician: Yenny Meyers MD Primary Care Provider: Latoya Dumont DO History of Present Illness History of Present Illness Frank Estes Jr is a 62 year old male Patient is a 62-year-old male with past medical history of diabetes, lower extremity wounds with prior amputations, hypertension, chronic kidney disease with a baseline creatinine of around 1 presented to the emergency department due to hyperglycemia as well as weakness. Patient was complaining of shortness of breath. In the emergency department was noted to be hypoxic ABG showed pH of 7.2 with a PCO2 of 76, he was started on bicarb is admitted to the intensive care unit. Lab data is significant for leukocytosis with white count of 33,000, VERONICA with a BUN of 121 and a creatinine initially was 2.2 worsened to 3.3 today. Has elevated lactic acid. Seen by podiatry . proBNP is elevated at 16,000 and albumin is low at 1.8. Chest x-ray has showed bilateral perihilar opacities consistent with possible pulmonary edema. Urine analysis has showed 1+ protein 3+ blood has microscopic hematuria . Urine sodium is 12. Echocardiogram has showed ejection fraction of 55%, severe aortic valve stenosis. Patient received IV contrast with CT chest yesterday, showed evidence of PE and enteritis Review of Systems Narrative: other ROS negative Medications/Allergies Home Medications Medication Instructions Recorded Confirmed Last Taken Type amlodipine 10 mg tablet 10 mg PO DAILY 30 days #30 tabs 12/05/21 08/04/23 08/03/23 Rx insulin syringe-needle U-100 1 mL #200 ea 07/24/22 08/04/23 Unknown Rx 31 gauge x 15/64 (BD Veo Insulin Syringe Ultra-Fine) diabetic shoes #1 ea 01/30/23 08/04/23 Unknown Rx aspirin 325 mg tablet 325 mg PO DAILY 03/21/23 08/04/23 08/03/23 History insulin syringe-needle U-100 1 mL #200 ea 04/23/23 08/04/23 Unknown Rx 31 gauge x 5/16 (BD Insulin Syringe Ultra-Fine) dulaglutide 3 mg/0.5 mL See Rx Instructions .Route 05/30/23 08/04/23 Unknown Rx subcutaneous pen injector .COMPLEX #4 mL (Trulicity) insulin glargine 100 unit/mL See Rx Instructions SUBCUT BID 90 05/30/23 08/04/23 08/03/23 Rx subcutaneous solution (Lantus days #10 mL U-100 Insulin) blood sugar diagnostic (Accu-Chek #100 ea 06/26/23 08/04/23 Unknown Rx Violeta Plus test strips) cyclobenzaprine 10 mg tablet 10 mg PO TID PRN muscle spasm #30 07/31/23 08/04/23 Unknown Rx tabs hydrocodone 5 mg-acetaminophen 325 1 tab PO TID PRN pain 7 days #21 07/31/23 08/04/23 Unknown Rx mg tablet tabs albuterol sulfate 90 mcg/actuation 2 puff inhalation QID PRN 08/04/23 08/04/23 Unknown History aerosol inhaler (Ventolin HFA) Shortness Of Breath carvedilol 6.25 mg tablet 6.25 mg PO BID 08/04/23 08/04/23 08/03/23 History hydrochlorothiazide 25 mg tablet 25 mg PO DAILY 08/04/23 08/04/23 08/03/23 History indomethacin 50 mg capsule 50 mg PO TID PRN gout 08/04/23 08/04/23 Unknown History lisinopril 10 mg tablet 10 mg PO DAILY 08/04/23 08/04/23 08/03/23 History metformin 500 mg tablet 500 mg PO BID 08/04/23 08/04/23 08/03/23 History rosuvastatin 10 mg tablet 10 mg PO DAILY 08/04/23 08/04/23 08/03/23 History Allergies Allergy/AdvReac Type Severity Reaction Status Date / Time No Known Allergies Allergy Verified 08/03/23 22:57 Current Medications Generic Name Dose Route Start Last Admin Trade Name Freq PRN Reason Stop Dose Admin Acetaminophen 650 mg 08/04/23 04:39 08/05/23 09:19 Acetaminophen 325 Mg Tablet PO 650 mg Q6H PRN Administration Mild/Mod Pain Or Temp >/= 101 Furosemide 40 mg 08/05/23 12:00 08/05/23 12:21 Furosemide 10 Mg/Ml Sdv 4ml IVP 40 mg Q24H ESAU Administration Heparin Sodium (Porcine) 0 unit 08/04/23 02:15 08/05/23 04:27 Heparin 5,000 Unit/Ml Inj 1 Ml IV 2,700 unit PRN PRN Administration Heparin weight-base protocol Protocol Heparin Sodium/Sodium Chloride 25,000 unit in 500 mls @ 0 mls/hr 08/04/23 02:15 08/05/23 12:20 Heparin Drip IV 20.58 unit/kg/hr .Q0M ESAU 56 mls/hr Administration Protocol Per Protocol Cefepime HCl 1,000 mg/ Sodium 50 mls @ 100 mls/hr 08/04/23 07:00 08/05/23 09:40 Chloride IV Infused Q12H ESAU Infusion Protocol Metronidazole 500 mg in 100 mls @ 100 mls/hr 08/05/23 08:30 08/05/23 10:28 Flagyl Iv IV Infused Q8H ESAU Infusion Protocol Insulin Glargine 30 unit 08/04/23 09:00 08/05/23 09:18 Insulin Glargine 100 Units/1 Ml SUBCUT 30 unit BID ESAU Administration Insulin Human Lispro 0 unit 08/04/23 07:30 08/05/23 14:46 Insulin Lispro 100 Unit/1 Ml SUBCUT Not Given Q6H [facility] Protocol Insulin Human Lispro 0 unit 08/05/23 08:00 08/05/23 12:20 Insulin Lispro 100 Unit/1 Ml SUBCUT 6 unit TIDWM ESAU Administration Protocol Pantoprazole Sodium 40 mg 08/04/23 04:45 08/05/23 04:29 Pantoprazole 40 Mg Sdv IVP 40 mg Q24H ESAU Administration PFSH Acute PFSH: Medical History (Updated 08/05/23 @ 12:56 by Narinder Smith DPM) Amputation of left great toe Aortic stenosis Arthralgia of back Arthropathy of lumbar facet joint Benign essential HTN Chronic pain of both shoulders Diabetic ulcer of right foot associated with diabetes mellitus due to underlying condition, 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 Dyslipidemia Elevated troponin Encounter for long-term use of opiate analgesic Fracture of distal phalanx of right middle finger History of amputation of toe Infection of finger Opioid contract 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 Pain in right foot Spinal stenosis, lumbar region without neurogenic claudication 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 Uncontrolled type 2 diabetes mellitus, with long-term current use of insulin Surgical History H/O right knee surgery Hx laparoscopic cholecystectomy Hx of foot surgery Family History Unknown Diabetes Father Stroke Social History Smoking and tobacco/nicotine status: former use of tobacco/nicotine Second hand smoke exposure: No Alcohol intake: never Substance/Drug Use: never Vitals/I&O/Wt Last Vital Signs Temp 98.1 F 08/05/23 09:30 Pulse 100 08/05/23 13:25 Resp 16 08/05/23 12:00 BP 102/52 08/05/23 12:00 Pulse Ox 97 08/05/23 13:25 O2 Del Method BiPAP 08/05/23 12:00 O2 Flow Rate 2 08/04/23 20:00 FiO2 30 08/05/23 13:25 08/05/23 08/05/23 08/05/23 06:59 14:59 22:59 Intake Total 339.284 / 6697.716 4179 / 1444 Output Total 350 / 650 Balance -10.716 / 822.219 7222 / 1444 Weight last 48 hrs Weight 149.685 kg Weight 151.5 kg Weight 136.078 kg Physical Exam Narrative: awake , alert no distress SQS2 RRR per report lungs clear per report + edema Urinary Catheter Management: Manuel: Cath Placed During This Visit: yes Reason for Continuing Indwelling Catheter: Accurate Measurement of Urinary Output in Critically Ill Patients Urinary Catheter Date of Insertion: 08/04/23 Urinary Catheter Time of Insertion: 05:12 Data 08/05/23 03:36 08/05/23 03:36 Micro: Microbiology 08/04/23 06:20 Urine Culture - Preliminary Urine,Clean Catch 08/05/23 10:28 Blood Culture - Preliminary Blood SPECIMEN COLLECTED 08/05/23 10:23 Blood Culture - Preliminary Blood SPECIMEN COLLECTED 08/04/23 18:25 Gram Stain - Final Sputum - Expectorated Sputum 08/03/23 23:30 Blood Culture - Preliminary Blood Staphylococcus aureus 08/03/23 22:22 Blood Culture - Preliminary Blood Staphylococcus aureus 08/04/23 06:20 Legionella Urinary Antigen - Final Urine Suprapubic 08/04/23 06:20 Bacterial Antigens - Final Urine Suprapubic A&P Assessment and plan (1) VERONICA (acute kidney injury): Plan 1. Acute on chronic kidney disease: Patient's baseline creatinine is around 1 in May 2023, now has VERONICA with a creatinine of 2.3 on presentation and worsened to 3.3 today. Etiology of VERONICA likely multifactorial. Noted urine electrolytes-consistent with intravascular volume depletion but patient has total body volume overload with pulmonary edema and worsening lower extremity edema. -Patient received IV contrast yesterday and suspect his renal function will get further worse in the next 24 to 48 hours. -No acute indication for HD but likely will need temporary HD if renal function fails to improve and continues to have volume overload -We will place on IV albumin and IV Lasix Strict intake and output, 2 g sodium restriction and 1500 mill fluid restriction - 2. History of diastolic CHF and moderate to severe diuretics stenosis per cardiology, 3. MRSA bacteremia with wound, podiatry following on broad-spectrum antibiotics, 4. Acute PE, on heparin drip 5. Enteritis/?mesenteric ischemia 6. History of diabetes Patient evaluated using audiovisual cart. Time spent 40 minutes. Discussed with patient's at bedside. Consult Attestations Medical Necessity Statement: per medicien team Coding Level of Care Code Acute Code for [facility] Diagnoses VERONICA (acute kidney injury) N17.9
[2023-08-05 16:48] LABS: Partial Thromboplastin Time 35.6 SECONDS (23.9-36.7)
[2023-08-05 17:16] LABS: Glucose Point of Care 131 mg/dL (70-110)
[2023-08-05 17:37] LABS: Glucose Point of Care 238 mg/dL (70-110)
[2023-08-05] MEDS: carvedilol 6.25 mg Tablet PO (18:13)
[2023-08-05] MEDS: FUROsemide 10 mg/mL SDV 4mL 60 MG IVP (18:13)
[2023-08-05] MEDS: albumin 25 G/100 ML BAG 60 G IV (18:14)
[2023-08-05] MEDS: HYDROcodone-acetaminophen 5-325 mg Tablet 1 TAB PO (19:55)
[2023-08-05 21:14] LABS: Glucose Point of Care 198 mg/dL (70-110)
--- NOTE | 2023-08-05 21:47 | P.CONIM_ITS ---
Providers/Reason For Consult Consulting Physician/Specialty*: Montez Price DO/orthopedic surgery Reason for Consult*: Rule out right shoulder infection as possible etiologic infectious source Requesting Physician: Dr. Meyers Attending Physician: Yenny Meyers MD Primary Care Provider: Latoya Dumont DO History of Present Illness History of Present Illness Frank Estes Jr is a 62 year old male a presented to the emergency department on 08/03/2023 was admitted secondary to acute respiratory failure with hypercapnia and pulmonary edema patient was admitted by the hospitalist patient's been worked up in been started on BiPAP. At this point time is on nasal cannula. He has had improvement pertaining to this however his white blood cell count has persistently been elevated. Hospitalist does look for possible infectious source patient's been afebrile during work-up podiatry has been consulted given patient's had distal extremity wounds of the prior amputation of the right foot. They are currently being consulted and working up for possible infectious source. patient has complained of right shoulder pain and states this has been going on over the past 2 weeks has not had any improvement. He complains of pain directly over the shoulder with some swelling as well as decreased range of motion. Orthopedics as result was consulted for right shoulder pain. Patient denies any previous injury to the right shoulder or any previous or recent injections to the right shoulder. According to medical records patient's had a viral illness over a month ago never seem to have full recovery. Has had this shoulder pain for over the past [address] scan noted. Patient has MRSA bacteremia, patient also has an acute PE and on a heparin drip. Patient denies any fever or chills, complains of shoulder pain, Shortness of breath and on nasal cannula. Review of Systems General: Reports: 10 or more systems reviewed and unremarkable except in HPI and below Medications/Allergies Home Medications Medication Instructions Recorded Confirmed Last Taken Type amlodipine 10 mg tablet 10 mg PO DAILY 30 days #30 tabs 12/05/21 08/04/23 08/03/23 Rx insulin syringe-needle U-100 1 mL #200 ea 07/24/22 08/04/23 Unknown Rx 31 gauge x 15/64 (BD Veo Insulin Syringe Ultra-Fine) diabetic shoes #1 ea 01/30/23 08/04/23 Unknown Rx aspirin 325 mg tablet 325 mg PO DAILY 03/21/23 08/04/23 08/03/23 History insulin syringe-needle U-100 1 mL #200 ea 04/23/23 08/04/23 Unknown Rx 31 gauge x 5/16 (BD Insulin Syringe Ultra-Fine) dulaglutide 3 mg/0.5 mL See Rx Instructions .Route 05/30/23 08/04/23 Unknown Rx subcutaneous pen injector .COMPLEX #4 mL (Trulicity) insulin glargine 100 unit/mL See Rx Instructions SUBCUT BID 90 05/30/23 08/04/23 08/03/23 Rx subcutaneous solution (Lantus days #10 mL U-100 Insulin) blood sugar diagnostic (Accu-Chek #100 ea 06/26/23 08/04/23 Unknown Rx Violeta Plus test strips) cyclobenzaprine 10 mg tablet 10 mg PO TID PRN muscle spasm #30 07/31/23 08/04/23 Unknown Rx tabs hydrocodone 5 mg-acetaminophen 325 1 tab PO TID PRN pain 7 days #21 07/31/23 08/04/23 Unknown Rx mg tablet tabs albuterol sulfate 90 mcg/actuation 2 puff inhalation QID PRN 08/04/23 08/04/23 Unknown History aerosol inhaler (Ventolin HFA) Shortness Of Breath carvedilol 6.25 mg tablet 6.25 mg PO BID 08/04/23 08/04/23 08/03/23 History hydrochlorothiazide 25 mg tablet 25 mg PO DAILY 08/04/23 08/04/23 08/03/23 History indomethacin 50 mg capsule 50 mg PO TID PRN gout 08/04/23 08/04/23 Unknown History lisinopril 10 mg tablet 10 mg PO DAILY 08/04/23 08/04/23 08/03/23 History metformin 500 mg tablet 500 mg PO BID 08/04/23 08/04/23 08/03/23 History rosuvastatin 10 mg tablet 10 mg PO DAILY 08/04/23 08/04/23 08/03/23 History Allergies Allergy/AdvReac Type Severity Reaction Status Date / Time No Known Allergies Allergy Verified 08/03/23 22:57 Current Medications Generic Name Dose Route Start Last Admin Trade Name Freq PRN Reason Stop Dose Admin Acetaminophen 650 mg 08/04/23 04:39 08/05/23 09:19 Acetaminophen 325 Mg Tablet PO 650 mg Q6H PRN Administration Mild/Mod Pain Or Temp >/= 101 Hydrocodone Bitart/Acetaminophen 1 tab 08/05/23 19:32 08/05/23 19:55 Hydrocodone-Acetaminophen 5-325 Mg Tablet PO 1 tab Q12H PRN Administration MODERATE PAIN Carvedilol 6.25 mg 08/05/23 18:00 08/05/23 18:13 Carvedilol 6.25 Mg Tablet PO 6.25 mg BID ESAU Administration Furosemide 60 mg 08/05/23 18:00 08/05/23 18:13 Furosemide 10 Mg/Ml Sdv 4ml IVP 60 mg BID ESAU Administration Heparin Sodium (Porcine) 0 unit 08/04/23 02:15 08/05/23 04:27 Heparin 5,000 Unit/Ml Inj 1 Ml IV 2,700 unit PRN PRN Administration Heparin weight-base protocol Protocol Heparin Sodium/Sodium Chloride 25,000 unit in 500 mls @ 0 mls/hr 08/04/23 02:15 08/05/23 12:20 Heparin Drip IV 20.58 unit/kg/hr .Q0M ESAU 56 mls/hr Administration Protocol Per Protocol Cefepime HCl 1,000 mg/ Sodium 50 mls @ 100 mls/hr 08/04/23 07:00 08/05/23 20:33 Chloride IV Infused Q12H ESAU Infusion Protocol Metronidazole 500 mg in 100 mls @ 100 mls/hr 08/05/23 08:30 08/05/23 18:31 Flagyl Iv IV Infused Q8H ESAU Infusion Protocol Albumin Human 25 g in 100 mls @ 60 mls/hr 08/05/23 16:45 08/05/23 20:32 Albumin IV Infused Q8H [facility] Infusion Insulin Glargine 30 unit 08/04/23 09:00 08/05/23 18:14 Insulin Glargine 100 Units/1 Ml SUBCUT 30 unit BID ESAU Administration Insulin Human Lispro 0 unit 08/04/23 07:30 08/05/23 19:30 Insulin Lispro 100 Unit/1 Ml SUBCUT Not Given Q6H [facility] Protocol Insulin Human Lispro 0 unit 08/05/23 08:00 08/05/23 18:14 Insulin Lispro 100 Unit/1 Ml SUBCUT 10 unit TIDWM ESAU Administration Protocol Pantoprazole Sodium 40 mg 08/04/23 04:45 08/05/23 04:29 Pantoprazole 40 Mg Sdv IVP 40 mg Q24H ESAU Administration PFSH Acute PFSH: Medical History (Updated 08/05/23 @ 22:06 by Montez Price DO) Amputation of left great toe Aortic stenosis Arthralgia of back Arthropathy of lumbar facet joint Benign essential HTN Chronic pain of both shoulders Diabetic ulcer of right foot associated with diabetes mellitus due to underlying condition, 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 Dyslipidemia Elevated troponin Encounter for long-term use of opiate analgesic Fracture of distal phalanx of right middle finger History of amputation of toe Infection of finger Opioid contract 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 Pain in right foot Spinal stenosis, lumbar region without neurogenic claudication 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 Uncontrolled type 2 diabetes mellitus, with long-term current use of insulin Surgical History H/O right knee surgery Hx laparoscopic cholecystectomy Hx of foot surgery Family History Unknown Diabetes Father Stroke Social History Smoking and tobacco/nicotine status: former use of tobacco/nicotine Second hand smoke exposure: No Alcohol intake: never Substance/Drug Use: never Vitals/I&O/Wt Last Vital Signs Temp 98.1 F 08/05/23 09:30 Pulse 101 H 08/05/23 19:50 Resp 15 08/05/23 19:50 BP 116/75 08/05/23 18:00 Pulse Ox 96 08/05/23 19:50 O2 Del Method Nasal Cannula 08/05/23 19:50 O2 Flow Rate 3 08/05/23 19:50 FiO2 30 08/05/23 13:25 08/05/23 08/05/23 08/05/23 06:59 14:59 22:59 Intake Total 339.284 / 3553.329 6623 / 1444 490 / 1934 Output Total 350 / 650 400 / 400 Balance -10.716 / 749.360 4258 / 1444 90 / 1534 Weight last 48 hrs Weight 330 lb Weight 334 lb Weight 300 lb Physical Exam Narrative: Examination patient is alert and awake and able to have conversation and answer questions as well as follow commands. Examination of the right shoulder patient has asymmetric swelling over the superior and lateral aspect of the right shoulder with warmth to the touch as well as subtle erythema there is no subcutaneous gas pull or crepitus noted on examination. He has severe tenderness to palpation diffusely about the right shoulder predominantly over the AC joint and down over the anterior and lateral aspect of the shoulder over the deltoid region. This does track slightly proximally and into the upper border of the trapezius on the right shoulder. He has decreased active and passive range of motion of the shoulder given his pain. He endorses sensation is intact to light touch distally. No wounds noted proximally. Patient has bandage on the right foot with previous amputation site being monitored by podiatry and dressing was not taken down and inspected. Urinary Catheter Management: Manuel: Cath Placed During This Visit: yes Reason for Continuing Indwelling Catheter: Accurate Measurement of Urinary Output in Critically Ill Patients Urinary Catheter Date of Insertion: 08/04/23 Urinary Catheter Time of Insertion: 05:12 Data 08/05/23 03:36 08/05/23 03:36 Micro: Microbiology 08/04/23 06:20 Urine Culture - Preliminary Urine,Clean Catch 08/05/23 10:28 Blood Culture - Preliminary Blood SPECIMEN COLLECTED 08/05/23 10:23 Blood Culture - Preliminary Blood SPECIMEN COLLECTED 08/04/23 18:25 Gram Stain - Final Sputum - Expectorated Sputum 08/03/23 23:30 Blood Culture - Preliminary Blood Staphylococcus aureus 08/03/23 22:22 Blood Culture - Preliminary Blood Staphylococcus aureus Other CT: My impression: X-rays multiple views of the right shoulder reviewed in person interpreted by myself demonstrating no acute fracture dislocation there is some degenerative changes noted of the AC joint no subcutaneous gas or air noted CT scan reviewed and personally interpreted by myself demonstrating what appears to be degenerative changes of the AC joint as well as small little amounts of air noted over the AC joint concern for possible infection. Recommending an MRI for further evaluation Radiologist's impression: CT/CT shoulder RT wo con* [id number] IMPRESSION: Thick soft tissue density containing gas overlying the AC joint, nonspecific and in the absence of recent procedure differential considerations include developing infectious collection, sequela of recent trauma or necrotic lesion.? Follow-up recommended. A&P Assessment and plan (1) Infection of shoulder: (2) Type 2 diabetes mellitus, with long-term current use of insulin: (3) Acute respiratory failure with hypoxia and hypercapnia: (4) Pulmonary embolism: Plan N.p.o. at midnight Imaging reviewed Labs reviewed Discussed case with hospitalist Discussed case with podiatry and will coordinate I&D together tomorrow MRI right shoulder tomorrow morning Plan for right shoulder irrigation debridement tomorrow Patient is a 62-year-old male known to my practice after a chronic infection of a right middle finger and had a subsequent amputation done. He is a diabetic and was recently admitted a couple days ago secondary to acute respiratory failure with hypercapnia. Is been managed by the primary team hospitalist been on BiPAP and is had improvement with this. He is now has a PE as well as concern for sepsis given his extremely elevated white blood cell count that is not improving he is on empiric antibiotics at this point in time. Orthopedics was consulted given he has been complaining of pain with his right shoulder and a CT scan showing possible AC joint gas/infection. Podiatry was consulted for r ight foot As possible source. At this point in time on my exam clinically he states that he has had pain in his right shoulder for the past couple weeks. He had a recent illness over a month ago which she had not improved much from he denies any recent trauma to the shoulder or any type of injection. At this point reviewing the CT scan I do have a high concern and suspicion of possible infectious source. The CT scan does not elucidate the extent of possibly the infection I feel it would benefit preoperatively from a right shoulder MRI for further evaluation in detail soft tissue evaluation to see if and where this infection is residing and where it involves to help preoperatively plan on appropriate I&D. At this point in time given he is not responding to treatment I feel this is his next best step as there is ultimately at this point in time no identifiable etiology for possible sepsis except for the right shoulder and possibly the right foot. I have coordinated with podiatry and will plan to take patient back to the OR together tomorrow for right foot I&D as well as a right s houlder I&D. Once again would like to have an MRI in the morning just to evaluate and preoperatively plan my surgical approach. Patient understands the ins and outs procedure the risk benefits complication alternatives with surgery risk of surgery include not limited to make a better make it worse injury to nerves vessels or tendons, persistent infection possible repeat surgeries. Understanding his risk of surgery elects to proceed all questions answered at this time we will defer to the primary team on when to discontinue heparin drip prior to procedure. Patient understands agrees with current plan. All questions answered. Coding Level of Care Code Acute Code for [facility] Diagnoses Infection of shoulder M00.9 Type 2 diabetes mellitus, with long-term current use of insulin E11.9; Z79.4 Acute respiratory failure with hypoxia and hypercapnia J96.01; J96.02 Pulmonary embolism I26.99
[2023-08-05 22:05] LABS: Partial Thromboplastin Time 52.7 SECONDS (23.9-36.7)
--- NOTE | 2023-08-05 23:17 | PC.NURSE ---
Contacted hospitalist, Dr. Dinero, regarding heparin infusion. Reported that Dr. Price saw patient tonight and will not be doing surgery on patient until late afternoon 1600/1700 tomorrow. Patient is on heparin infusion for a PE. Dr. Dinero gave order to continue heparin until 0800.
[2023-08-06] VITALS (44 sets, daily range): BP systolic 99–141; BP diastolic 46–72; PULSE 50–102; RESP 11–40; TEMP 34.7–37; O2SAT 60–100
[2023-08-06] MEDS: metroNIDAZOLE IV 500 MG/100 ML PREMIX 100 MG IV ×3 (01:14→17:00)
[2023-08-06] MEDS: albumin 25 G/100 ML BAG 60 G IV ×3 (01:29→17:00)
[2023-08-06 01:39] LABS: Glucose Point of Care 191 mg/dL (70-110)
[2023-08-06] MEDS: insulin lispro 100 unit/1 mL SUBCUT ×3 (01:41→12:40)
[2023-08-06 04:21] LABS: Basophils # 0.2 10^3/uL (0.0-0.1); Basophils % 0.6 %; Eosinophils # 0.1 10^3/uL (0.0-0.8); Eosinophils % 0.4 %; Hematocrit 37.5 % (37-53); Lymphocytes % 3.3 %; Mean Corpuscular HGB Conc 30.4 g/dL (30-55); Mean Corpuscular Hemoglobin 27.7 pg (27-33); Mean Corpuscular Volume 91.2 fl (82-101); Mean Platelet Volume 13.5 fL (7.4-10.4); Monocytes # 1.8 10^3/uL (0.2-0.9); Monocytes % 6.3 %; Neutrophils # 25.12 10^3/uL (1.8-7.7); Neutrophils % 85.4 %; Nucleated Red Blood Cells % 0 %; Platelet Count 207 10^3/cmm (157-399); Red Blood Count 4.11 10^6/uL (3.85-5.65); White Blood Count 29.41 10^3/uL (3.29-11.43)
[2023-08-06 04:32] LABS: Partial Thromboplastin Time 62.3 SECONDS (23.9-36.7)
[2023-08-06 04:42] LABS: ABG PCO2 51.8 mmHg (35-45); ABG PH Result 7.28 (7.35-7.45); Arterial Blood Gas Hematocrit 45.5 % (42-52); Base Excess ABG -3.4 mmol/L (-2.0-2.0); Blood Gas Allen Test Pos; Blood Gas Sample Site Radial, right; Blood Gas Sample Type Arterial; HCO3 ABG 24.1 mmol/L (22-26); PO2 ABG 98.2 mmHg (80.0-100.0)
[2023-08-06 04:43] LABS: Alanine Aminotransferase 18 U/L (0-41); Albumin Level 2.4 g/dL (3.5-5.2); Alkaline Phosphatase 211 U/L (40-130); Anion Gap 19.1 (5-19); Aspartate Amino Transferase 24 U/L (0-40); C Reactive Protein 198.1 mg/L (0.0-4.9); Calcium 7.9 mg/dL (8.5-10.5); Carbon Dioxide 22 mmol/L (22-29); Chloride 92 mmol/L (98-107); Globulin 2.8 g/dL (1.3-4.6); Glomerular Filtration Rate 12.7 mL/min (90-130); Glucose 261 mg/dL (65-115); Potassium 5.1 mmol/L (3.5-5.1); Sodium 128 mmol/L (136-145); Total Bilirubin 1.3 mg/dL (0.15-1.2); Total Protein 5.2 g/dL (6.6-8.7)
[2023-08-06 04:44] LABS: Blood Gas Operator Identificat JB; Blood Gas Tidal Volume 0.45; Oxygen Device BIPAP; PO2 FiO2 Ratio Arterial Blood 0
[2023-08-06 04:46] LABS: Lactic Sepsis W/Reflex 1.2 mmol/L (0.5-2.2)
[2023-08-06 04:55] LABS: Blood Urea Nitrogen 141 mg/dL (8-23); Osmolality Calculated 321 mOsm/kg (285-295)
[2023-08-06] MEDS: pantoprazole 40 mg SDV IVP (05:00)
[2023-08-06] MEDS: cefepime 1,000 MG in sodium chloride 0.9% (plus) 50 ML 100 MG IV ×2 (06:56→20:37)
--- NOTE | 2023-08-06 07:18 | PM.PN ---
Subjective Subjective: In the last 24 hours, Darrell's creatinine continues to increase. It is now 4.7 with a BUN of 141. Nephrology has been consulted. His white blood cell count is still high. His blood culture results reveal Staphylococcus aureus. The source is thought to be a foot wound. Podiatry has been consulted. His respiratory status is still somewhat tenuous. He struggles with hypercarbia. Last PCO2 was 52 with a pH of 7.28. He remains on BiPAP. His mental status is still the same. He moves a little bit when he is spoken to but does not answer questions. His rhythm is sinus bradycardia with rates in the 50s. He remains on intravenous heparin for the pulmonary embolism and also remains on IV antibiotics. Vitals/I&O/Wt Last Vital Signs Temp 98.4 F 08/05/23 20:00 Pulse 65 08/06/23 05:35 Resp 28 H 08/06/23 04:00 BP 107/52 08/06/23 04:00 Pulse Ox 95 08/06/23 05:35 O2 Del Method Nasal Cannula 08/05/23 19:50 O2 Flow Rate 3 08/05/23 19:50 FiO2 30 08/06/23 05:35 08/05/23 08/06/23 08/06/23 22:59 06:59 14:59 Intake Total 1230 / 2674 200 / 2874 Output Total 400 / 400 120 / 520 Balance 830 / 2274 80 / 2354 Weight last 48 hrs Weight 341 lb Weight 330 lb Physical Exam Narrative: GENERAL: In general he appears comfortable lying flat on his back on BiPAP HEENT: Exam within normal limits. NECK: Supple without jugular vein distention. The carotid upstroke is normal without bruits. BACK: Exam normal. LUNGS: Clear. HEART: Regular rate and rhythm. ABDOMEN: Benign without organomegaly or tenderness. EXTREMITIES: No edema. NEUROLOGIC: Exam normal. SKIN: Unremarkable. Urinary Catheter Management: Manuel: Cath Placed During This Visit: yes Reason for Continuing Indwelling Catheter: Accurate Measurement of Urinary Output in Critically Ill Patients Urinary Catheter Date of Insertion: 08/04/23 Urinary Catheter Time of Insertion: 05:12 Data 08/06/23 03:33 08/06/23 03:33 Micro: Microbiology 08/03/23 22:22 Blood Culture - Preliminary Blood Staphylococcus aureus 08/04/23 06:20 Urine Culture - Preliminary Urine,Clean Catch 08/05/23 10:28 Blood Culture - Preliminary Blood SPECIMEN COLLECTED 08/05/23 10:23 Blood Culture - Preliminary Blood SPECIMEN COLLECTED 08/04/23 18:25 Gram Stain - Final Sputum - Expectorated Sputum 08/03/23 23:30 Blood Culture - Preliminary Blood Staphylococcus aureus A&P Assessment and plan (1) Type 2 diabetes mellitus: (2) Aortic stenosis: (3) 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: (4) Elevated troponin: (5) Hyperglycemia: (6) Leukocytosis: (7) Hyponatremia: (8) VERONICA (acute kidney injury): (9) Pulmonary embolism: (10) CAP (community acquired pneumonia): (11) Acute respiratory failure with hypoxia and hypercapnia: (12) Type 2 diabetes mellitus, with long-term current use of insulin: (13) Diabetic ulcer of right foot: (14) Osteomyelitis of finger of right hand: (15) Peripheral artery disease: (16) CKD stage 3 due to type 2 diabetes mellitus: (17) Sepsis: Plan No change in cardiology plan. Continue to treat other serious medical problems. Attestations Medical Necessity Statement*: Requires hospitalization for above-mentioned serious medical problems. and Moderate Time for a total of 35 minutes, includes reviewing past or interval history, examining/interviewing patient and documenting encounter Diagnoses Type 2 diabetes mellitus E11.9 Aortic stenosis I35.0 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 I70.203 Elevated troponin R79.89 Hyperglycemia R73.9 Leukocytosis D72.829 Hyponatremia E87.1 VERONICA (acute kidney injury) N17.9 Pulmonary embolism I26.99 CAP (community acquired pneumonia) J18.9 Acute respiratory failure with hypoxia and hypercapnia J96.01; J96.02 Type 2 diabetes mellitus, with long-term current use of insulin E11.9; Z79.4 Diabetic ulcer of right foot E11.621; L97.519 Osteomyelitis of finger of right hand M86.9 Peripheral artery disease I73.9 CKD stage 3 due to type 2 diabetes mellitus E11.22; N18.30 Sepsis A41.9
[2023-08-06 07:57] LABS: Glucose Point of Care 225 mg/dL (70-110)
--- NOTE | 2023-08-06 08:04 | PC.NURSE ---
Patient's left axillary temperature was 96.2 and the right axillary temperature was 98.6
--- NOTE | 2023-08-06 08:31 | PM.PN ---
Subjective Subjective: Patient was seen at bedside this morning. On BiPAP. Seen by orthopedics yesterday for right shoulder. Plan is for patient to go to the operating room today for incision and drainage of right shoulder. Right foot dressing remains clean, dry, intact. No proximal streaking of the leg. No overnight events Vitals/I&O/Wt Last Vital Signs Temp 98.6 F 08/06/23 08:02 Pulse 58 L 08/06/23 07:38 Resp 24 H 08/06/23 07:38 BP 107/52 08/06/23 04:00 Pulse Ox 95 08/06/23 07:38 O2 Del Method BiPAP 08/06/23 07:38 O2 Flow Rate 3 08/05/23 19:50 FiO2 30 08/06/23 07:38 08/05/23 08/06/23 08/06/23 22:59 06:59 14:59 Intake Total 1230 / 2674 200 / 2874 Output Total 400 / 400 120 / 520 Balance 830 / 2274 80 / 2354 Weight last 48 hrs Weight 341 lb Weight 330 lb Physical Exam Narrative: BELOW IS A FOCUSED LOWER EXTREMITY EXAM GENERAL: A&O x 3 VASCULAR: DP/PT pulses palpable 2/4 with CFT intact, <3seconds DERMATOLOGICAL: Full-thickness ulceration plantar aspect of right transmetatarsal amputation site, 1.8 x 1.6 cm with 1.5 cm depth, positive probe to bone. Mild active purulent drainage. No appreciable underlying fluctuance MUSCULOSKELETAL: Status post right foot transmetatarsal amputation, tenderness with palpation of periwound area to the right foot. History of left hallux and second digit amputation NEUROLOGICAL: Neurological sensation to the affected foot and ankle is present through L4-S1 dermatomes with no hyper/hypoesthesias, negative Tinel or Valleix's sign Urinary Catheter Management: Manuel: Cath Placed During This Visit: yes Reason for Continuing Indwelling Catheter: Accurate Measurement of Urinary Output in Critically Ill Patients Urinary Catheter Date of Insertion: 08/04/23 Urinary Catheter Time of Insertion: 05:12 Data 08/06/23 03:33 08/06/23 03:33 Micro: Microbiology 08/03/23 22:22 Blood Culture - Preliminary Blood Staphylococcus aureus 08/04/23 06:20 Urine Culture - Preliminary Urine,Clean Catch 08/05/23 10:28 Blood Culture - Preliminary Blood SPECIMEN COLLECTED 08/05/23 10:23 Blood Culture - Preliminary Blood SPECIMEN COLLECTED 08/04/23 18:25 Gram Stain - Final Sputum - Expectorated Sputum 08/03/23 23:30 Blood Culture - Preliminary Blood Staphylococcus aureus A&P Assessment and plan (1) Non-pressure chronic ulcer of other part of right foot with necrosis of bone: (2) Diabetic ulcer of right foot: (3) Type 2 diabetes mellitus: Plan LABS AND CLINICAL INFO: WBC 33.8--> 29.4 ESR 60 CRP N/A Cultures: Blood culture (08/03/2023) positive for Staph aureus, wound culture (08/05/2023) pending Antibiotics: Vanco/cefepime/Flagyl MRI pending for right foot and right shoulder CT scan right foot showed no readily visualized abscess or fluid collection Positive pulmonary embolus PLAN: -N.p.o. -Plan for right foot incision and drainage today 08/06/2023 -Continue IV antibiotic therapy -Monitor cultures -Daily dressing changes using Hydrofera Blue, dry sterile dressing -Podiatry will continue to round on patient and provide recommendations based on work-up Attestations Medical Necessity Statement*: See hospitalist note Coding Level of Care Code Acute Code for Chg Fwd Diagnoses Non-pressure chronic ulcer of other part of right foot with necrosis of bone L97.514 Diabetic ulcer of right foot E11.621; L97.519 Type 2 diabetes mellitus E11.9
[2023-08-06 08:56] LABS: ABG PCO2 56.9 mmHg (35-45); ABG PH Result 7.24 (7.35-7.45); Arterial Blood Gas Hematocrit 35.7 % (42-52); Base Excess ABG -3.6 mmol/L (-2.0-2.0); Blood Gas Allen Test Pos; Blood Gas Sample Type Arterial; Carboxyhemoglobin 1.7 %THgb (0.4-20.1); HCO3 ABG 24.4 mmol/L (22-26); HGB O2 Sat 94.9 % (95-100); Ionized Calcium Level - ABG 1.1 mmol/L (1.1-1.4); Methemoglobin 0.5 % (0.4-1.5); Oxygen Saturation ABG 97.1; PO2 ABG 89.1 mmHg (80.0-100.0); Potassium Level - ABG 4.9 mmol/L (3.5-5.0); Total Hemoglobin 11.6 g/dL (14-18)
[2023-08-06 08:57] LABS: Alveolar-Arterial Oxygen Gradi 7.4 mmHg (5-10); Blood Gas Operator Identificat MONRO; Blood Gas Sample Site Radial, left; Blood Gas Tidal Volume 0.55; Oxygen Device BIPAP; PO2 FiO2 Ratio Arterial Blood 0
[2023-08-06] MEDS: carvedilol 6.25 mg Tablet PO (09:10)
[2023-08-06] MEDS: HYDROcodone-acetaminophen 5-325 mg Tablet 1 TAB PO (09:10)
[2023-08-06] MEDS: FUROsemide 10 mg/mL SDV 4mL 60 MG IVP (09:11)
[2023-08-06] MEDS: vancomycin 2,000 MG/400 ML PIGGYBACK 200 MG IV (09:14)
[2023-08-06] MEDS: insulin glargine 100 units/1 mL 30 UNIT SUBCUT (09:17)
--- NOTE | 2023-08-06 09:46 | PC.SOCIAL ---
Pg 2 IMM Explained to pt & family Pg 2 IMM. No questions voiced. Provided pt a copy. Initialed, dated, & timed a copy & placed in chart.
--- NOTE | 2023-08-06 09:48 | PM.PN ---
Subjective Subjective: Patient is showing signs of uremia We will request temporary dialysis catheter Tendon procedure for foot, right shoulder and dialysis catheter placement Hypercapnia worsening Patient will get intubated perioperatively notified who is giving us consent for intubation during the surgery She is stating that they do not prefer him to stay intubated for prolonged. Time with medical, however agreeable for perioperative. Liver notified and told about the guarded prognosis, Vitals/I&O/Wt Last Vital Signs Temp 98.6 F 08/06/23 08:02 Pulse 58 L 08/06/23 07:38 Resp 24 H 08/06/23 07:38 BP 107/52 08/06/23 04:00 Pulse Ox 95 08/06/23 07:38 O2 Del Method BiPAP 08/06/23 07:38 O2 Flow Rate 3 08/05/23 19:50 FiO2 30 08/06/23 07:38 08/05/23 08/06/23 08/06/23 22:59 06:59 14:59 Intake Total 1230 / 2674 200 / 2874 Output Total 400 / 400 120 / 520 Balance 830 / 2274 80 / 2354 Weight last 48 hrs Weight 154.675 kg Weight 149.685 kg Physical Exam Narrative: Patient showing signs of uremia Able to follow commands GCS 15 fluid overload persistent S1, S2 Afebrile Right foot covered with dressing Right shoulder mild erythema tender on palpation Abdomen distended, nontender Sacral area ulcer stage I Right foot draining ulcer Manuel catheter with 20 mil urine this morning Urinary Catheter Management: Manuel: Cath Placed During This Visit: yes Reason for Continuing Indwelling Catheter: Accurate Measurement of Urinary Output in Critically Ill Patients Urinary Catheter Date of Insertion: 08/04/23 Urinary Catheter Time of Insertion: 05:12 Data 08/06/23 03:33 08/06/23 03:33 Micro: Microbiology 08/04/23 06:20 Urine Culture - Final Urine,Clean Catch 08/03/23 22:22 Blood Culture - Preliminary Blood Staphylococcus aureus 08/05/23 10:28 Blood Culture - Preliminary Blood SPECIMEN COLLECTED 08/05/23 10:23 Blood Culture - Preliminary Blood SPECIMEN COLLECTED 08/04/23 18:25 Gram Stain - Final Sputum - Expectorated Sputum 08/03/23 23:30 Blood Culture - Preliminary Blood Staphylococcus aureus A&P Assessment and plan (1) Infection of shoulder: (2) Type 2 diabetes mellitus: (3) Aortic stenosis: (4) 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: (5) Elevated troponin: (6) Hyperglycemia: (7) Leukocytosis: (8) Hyponatremia: (9) VERONICA (acute kidney injury): (10) Pulmonary embolism: (11) NSTEMI (non-ST elevated myocardial infarction): (12) Acute decompensated heart failure: (13) CAP (community acquired pneumonia): (14) Pulmonary edema: (15) Type 2 diabetes mellitus, with long-term current use of insulin: (16) Non-healing ulcer: Qualifiers: Non-pressure ulcer stage: with fat layer exposed Qualified Code(s): L98.492 - Non-pressure chronic ulcer of skin of other sites with fat layer exposed (17) Peripheral artery disease: (18) Sepsis: Plan Patient seen multiple times Called 3 surgeons Coordinating care for tandem procedure and dialysis catheter placement Spoke with nephrology Spoke with the today Guarded prognosis discussed with the family, they seem to have good insight Sepsis present on admission Source seem to be right foot draining ulcer, right shoulder joint, Sacral ulcer, Urinalysis did show minimal pyuria with negative nitrates and leukocyte esterase Significant leukocytosis Concern for septic joint Bacteremia Not a candidate to receive septic bolus due to hypervolemia Patient is getting obtunded due to uremia Lactic acid normal today No fever Cultures repeated 08/05 08/03 blood culture positive with MRSA Acute on chronic kidney disease ATN, contrast-induced nephropathy? Worsening creatinine Urine output [address] temporary dialysis catheter Patient received contrast, he was taken nephrotoxic agents as well Pulmonary embolism: Heparin on hold Acute diastolic CHF exacerbation Patient has been giving IV diuretics along albumin With hyponatremia patient carries a guarded prognosis Non-STEMI: Medical management recommended by amphibian crewmember Echo showing severe aortic stenosis Right shoulder gas density Concern for septic joint Patient is not a good candidate to receive septic bolus considering persistent hypervolemia Patient had received antibiotics since day 1 Added clindamycin yesterday Orthopedics planning for intervention today Persistent hypercapnia Persistent hypervolemia Patient will get intubated today Family was updated Decubitus ulcer stage I Open draining ulcer probe to bone right foot MRSA bacteremia Family stating that they are okay with perioperative intubation, chest compressions defibrillation however do not prefer to keep him on a ventilator for prolonged. Time more than a week Hyperglycemia patient will need insulin drip Frequent Accu-Cheks picc line today08/06 npo Attestations Medical Necessity Statement*: Guarded prognosis, continue ICU care Coding Level of Care Code Critical Care >/= 30 minutes Critical care time (in minutes): 60 The high probability of a clinically significant, sudden or life threatening deterioration, as referenced in this documentation, required my full and direct attention, intervention and personal management. The critical care time shown is in addition to time spent performing any reported separately billable procedures and includes the following: [x] Data and vital sign review and interpretation [x] Patient assessment, examination and intervention [x] Medication orders and management [x] Patient/Family updates as able [x] Care Coordination and Documentation. Diagnoses Infection of shoulder M00.9 Type 2 diabetes mellitus E11.9 Aortic stenosis I35.0 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 I70.203 Elevated troponin R79.89 Hyperglycemia R73.9 Leukocytosis D72.829 Hyponatremia E87.1 VERONICA (acute kidney injury) N17.9 Pulmonary embolism I26.99 NSTEMI (non-ST elevated myocardial infarction) I21.4 Acute decompensated heart failure I50.9 CAP (community acquired pneumonia) J18.9 Pulmonary edema J81.1 Type 2 diabetes mellitus, with long-term current use of insulin E11.9; Z79.4 Non-healing ulcer L98.492 Non-pressure ulcer stage: with fat layer exposed Peripheral artery disease I73.9 Sepsis A41.9
[2023-08-06 12:36] LABS: Glucose Point of Care 235 mg/dL (70-110)
--- NOTE | 2023-08-06 12:56 | PM.PN ---
Subjective Subjective: UOP low Medications: Reviewed: Yes Vitals/I&O/Wt Last Vital Signs Temp 97.6 F 08/06/23 12:47 Pulse 56 L 08/06/23 12:30 Resp 24 H 08/06/23 07:38 BP 107/52 08/06/23 04:00 Pulse Ox 95 08/06/23 12:30 O2 Del Method BiPAP 08/06/23 07:38 O2 Flow Rate 3 08/05/23 19:50 FiO2 30 08/06/23 12:30 08/05/23 08/06/23 08/06/23 22:59 06:59 14:59 Intake Total 1230 / 2674 200 / 2874 650 / 650 Output Total 400 / 400 120 / 520 Balance 830 / 2274 80 / 2354 650 / 650 Weight last 48 hrs Weight 154.675 kg Weight 149.685 kg Physical Exam Narrative: awake , alert no distress SQS2 RRR per report lungs clear per report + edema Urinary Catheter Management: Manuel: Cath Placed During This Visit: yes Reason for Continuing Indwelling Catheter: Accurate Measurement of Urinary Output in Critically Ill Patients Urinary Catheter Date of Insertion: 08/04/23 Urinary Catheter Time of Insertion: 05:12 Data 08/07/23 04:35 08/07/23 04:35 Micro: Microbiology 08/03/23 23:30 Blood Culture - Preliminary Blood Staphylococcus aureus 08/03/23 22:22 Blood Culture - Preliminary Blood Staphylococcus aureus 08/04/23 18:25 Gram Stain - Final Sputum - Expectorated Sputum Sputum Culture - Preliminary 08/05/23 10:23 Blood Culture - Preliminary Blood NEGATIVE TO DATE 08/05/23 10:28 Blood Culture - Preliminary Blood NEGATIVE TO DATE 08/04/23 06:20 Urine Culture - Final Urine,Clean Catch A&P Assessment and plan (1) VERONICA (acute kidney injury): Plan 1. Acute on chronic kidney disease: Patient's baseline creatinine is around 1 in May 2023, now has VERONICA with a creatinine of 2.3 on presentation and worsened to 3.3 today. Etiology of VERONICA likely multifactorial. Noted urine electrolytes-consistent with intravascular volume depletion but patient has total body volume overload with pulmonary edema and worsening lower extremity edema. -Patient received IV contrast and renal fxn worse , -plan for temporary HD catheter placement and HD today -We will place on IV albumin and IV Lasix Strict intake and output, 2 g sodium restriction and 1500 mill fluid restriction - 2. History of diastolic CHF and moderate to severe diuretics stenosis per cardiology, 3. MRSA bacteremia with wound, podiatry following on broad-spectrum antibiotics, 4. Acute PE, on heparin drip 5. Enteritis/?mesenteric ischemia 6. History of diabetes Patient evaluated using audiovisual cart. Time spent 40 minutes. Discussed with patient's at bedside. Attestations Medical Necessity Statement*: per medicien team Coding Level of Care Code Acute Code for [facility] Fwd Diagnoses VERONICA (acute kidney injury) N17.9
--- NOTE | 2023-08-06 13:00 | SUR.PREOP ---
Time out for PICC line insertion
--- NOTE | 2023-08-06 13:11 | XR_ITS ---
WS: [id number] PORTABLE CHEST HISTORY: PiCC placement COMPARISON: 08/03/2023 Left-sided PICC line terminates at the caval atrial junction in good position. Poor evaluation of the lungs due to patient's condition. Diffuse hazy attenuation throughout the RIGH T lung may be positional or due to technique. Pneumonia not excluded. IMPRESSION: Left-sided PICC line terminates in good position.
[2023-08-06 13:52] LABS: Hepatitis B Core AB, Total Non-Reactive (Nonreactive); Hepatitis B Surface AB 3.5 (11.5-1000); Hepatitis B Surface Antigen Non-Reactive (Nonreactive)
[2023-08-06] MEDS: DOPamine drip 400 MG/250 ML PREMIX 29 MG IV (14:06)
--- NOTE | 2023-08-06 14:45 | ANES.PREANE2 ---
Pre-Anesthetic Assessment Height/Weight: Height 1.88 m Weight 154.675 kg Temp Pulse Resp BP Pulse Ox O2 Del Method O2 Flow Rate 97.6 F 50 L 16 104/46 95 Nasal Cannula 4 08/06/23 12:47 08/06/23 13:00 08/06/23 13:00 08/06/23 12:30 08/06/23 13:00 08/06/23 12:30 08/06/23 12:30 FiO2 30 08/06/23 12:30 Operation Date: 08/06/23 13:40 Proposed Procedures p Incision & Drainage right shoulder(Right) - Montez Price DO s Incision And Drainage right foot(Right) - Narinder Smith DPM Familial anesthetic complications: None Last intake: > 8hrs Social No alcohol and No tobacco Exam alert, oriented x 3, clear to auscultation bilaterally and regular rate & rhythm Airway Dentition: full Pulmonary acute resp failure on bipap w/ hypercarbic acidosis Pneumonia CV/HEM Coronary Artery Disease, Congestive Heart Failure, Myocardial Infarction and Peripheral Vascular Disease severe aortic stenosis NSTEMI Pulmonary embolism on anticoagulation CKD on ARF Metabolic Diabetes Mellitus and Morbid Obesity hyponatremia, potassium 5.1 Sepsis Anesthetic Plan ASA status: 4 Anesthesia: General Risk of > 500 ml blood loss (7ml/kg in children): No Other Pertinent Information Discussed with physician and with patient's family, regarding high probability of remaining intubated post procedure. Family is ok with full code, but specifically wants to limit the duration of the code to aprox 10 minutes to decrease the risk of the patient surviving with anoxic brain injury Medications/Allergies Home Medications Medication Instructions Recorded Confirmed Last Taken Type amlodipine 10 mg tablet 10 mg PO DAILY 30 days #30 tabs 12/05/21 08/04/23 08/03/23 Rx insulin syringe-needle U-100 1 mL #200 ea 07/24/22 08/04/23 Unknown Rx 31 gauge x 15/64 (BD Veo Insulin Syringe Ultra-Fine) diabetic shoes #1 ea 01/30/23 08/04/23 Unknown Rx aspirin 325 mg tablet 325 mg PO DAILY 03/21/23 08/04/23 08/03/23 History insulin syringe-needle U-100 1 mL #200 ea 04/23/23 08/04/23 Unknown Rx 31 gauge x 5/16 (BD Insulin Syringe Ultra-Fine) dulaglutide 3 mg/0.5 mL See Rx Instructions .Route 05/30/23 08/04/23 Unknown Rx subcutaneous pen injector .COMPLEX #4 mL (Trulicity) insulin glargine 100 unit/mL See Rx Instructions SUBCUT BID 90 05/30/23 08/04/23 08/03/23 Rx subcutaneous solution (Lantus days #10 mL U-100 Insulin) blood sugar diagnostic (Accu-Chek #100 ea 06/26/23 08/04/23 Unknown Rx Violeta Plus test strips) cyclobenzaprine 10 mg tablet 10 mg PO TID PRN muscle spasm #30 07/31/23 08/04/23 Unknown Rx tabs hydrocodone 5 mg-acetaminophen 325 1 tab PO TID PRN pain 7 days #21 07/31/23 08/04/23 Unknown Rx mg tablet tabs albuterol sulfate 90 mcg/actuation 2 puff inhalation QID PRN 08/04/23 08/04/23 Unknown History aerosol inhaler (Ventolin HFA) Shortness Of Breath carvedilol 6.25 mg tablet 6.25 mg PO BID 08/04/23 08/04/23 08/03/23 History hydrochlorothiazide 25 mg tablet 25 mg PO DAILY 08/04/23 08/04/23 08/03/23 History indomethacin 50 mg capsule 50 mg PO TID PRN gout 08/04/23 08/04/23 Unknown History lisinopril 10 mg tablet 10 mg PO DAILY 08/04/23 08/04/23 08/03/23 History metformin 500 mg tablet 500 mg PO BID 08/04/23 08/04/23 08/03/23 History rosuvastatin 10 mg tablet 10 mg PO DAILY 08/04/23 08/04/23 08/03/23 History Allergies Allergy/AdvReac Type Severity Reaction Status Date / Time No Known Allergies Allergy Verified 08/03/23 22:57 Current Medications Generic Name Dose Route Start Last Admin Trade Name Freq PRN Reason Stop Dose Admin Acetaminophen 650 mg 08/04/23 04:39 08/05/23 09:19 Acetaminophen 325 Mg Tablet PO 650 mg Q6H PRN Administration Mild/Mod Pain Or Temp >/= 101 Hydrocodone Bitart/Acetaminophen 1 tab 08/05/23 19:32 08/06/23 09:10 Hydrocodone-Acetaminophen 5-325 Mg Tablet PO 1 tab Q12H PRN Administration MODERATE PAIN Carvedilol 6.25 mg 08/05/23 18:00 08/06/23 09:10 Carvedilol 6.25 Mg Tablet PO 6.25 mg BID ESAU Administration Furosemide 60 mg 08/05/23 18:00 08/06/23 09:11 Furosemide 10 Mg/Ml Sdv 4ml IVP 60 mg BID ESAU Administration Heparin Sodium (Porcine) 0 unit 08/04/23 02:15 08/05/23 04:27 Heparin 5,000 Unit/Ml Inj 1 Ml IV 2,700 unit PRN PRN Administration Heparin weight-base protocol Protocol Heparin Sodium/Sodium Chloride 25,000 unit in 500 mls @ 0 mls/hr 08/04/23 02:15 08/06/23 07:55 Heparin Drip IV Infused .Q0M ESAU Titration Protocol Per Protocol Cefepime HCl 1,000 mg/ Sodium 50 mls @ 100 mls/hr 08/04/23 07:00 08/06/23 07:30 Chloride IV Infused Q12H ESAU Infusion Protocol Metronidazole 500 mg in 100 mls @ 100 mls/hr 08/05/23 08:30 08/06/23 12:30 Flagyl Iv IV Infused Q8H ESAU Infusion Protocol Vancomycin/PEG/NADA/Lysine/Water 2,000 mg in 400 mls @ 200 mls/hr 08/06/23 08:00 08/06/23 12:30 Vancocin IV Infused Q36H ESAU Infusion Albumin Human 25 g in 100 mls @ 60 mls/hr 08/05/23 16:45 08/06/23 12:45 Albumin IV Infused Q8H ESAU Infusion Dopamine HCl/Dextrose 400 mg in 250 mls @ 29.002 mls/hr 08/06/23 13:45 08/06/23 14:06 Intropin Drip IV 5 mcg/kg/min CONT ESAU 29 mls/hr Administration Protocol 5 MCG/KG/MIN Insulin Human Lispro 0 unit 08/05/23 08:00 08/06/23 12:40 Insulin Lispro 100 Unit/1 Ml SUBCUT 8 unit TIDWM ESAU Administration Protocol Pantoprazole Sodium 40 mg 08/04/23 04:45 08/06/23 05:00 Pantoprazole 40 Mg Sdv IVP 40 mg Q24H ESAU Administration PFSH Anesthesia Medical History (Updated 08/06/23 @ 07:24 by James Shen MD) Amputation of left great toe Aortic stenosis Arthralgia of back Arthropathy of lumbar facet joint Benign essential HTN Chronic pain of both shoulders Diabetic ulcer of right foot associated with diabetes mellitus due to underlying condition, 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 Dyslipidemia Elevated troponin Encounter for long-term use of opiate analgesic Fracture of distal phalanx of right middle finger History of amputation of toe Infection of finger Opioid contract 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 Pain in right foot Sepsis Spinal stenosis, lumbar region without neurogenic claudication 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 Uncontrolled type 2 diabetes mellitus, with long-term current use of insulin Surgical History H/O right knee surgery Hx laparoscopic cholecystectomy Hx of foot surgery Family History Unknown Diabetes Father Stroke Social History Smoking and tobacco/nicotine status: former use of tobacco/nicotine Second hand smoke exposure: No Alcohol intake: never Substance/Drug Use: never Data Anesthesia 08/06/23 03:33 08/06/23 03:33 Short CBC 08/05/23 08/06/23 Range/Units 03:36 03:33 WBC 33.81 H* 29.41 H (3.29-11.43) 10^3/uL Hgb 12.20 11.40 (11.27-16.99) g/dL Hct 38.9 37.5 (37-53) % MCV 89.8 91.2 (82-101) fl Plt Count 198 207 (157-399) 10^3/cmm Neut % (Auto) 83.7 85.4 % Neut # (Auto) 28.31 H 25.12 H (1.8-7.7) 10^3/uL BMP 08/05/23 08/06/23 08/06/23 03:36 03:33 03:33 Sodium 132 L 128 L Cancelled Potassium 4.8 5.1 Cancelled Chloride 94 L 92 L Cancelled Carbon Dioxide 27 22 Cancelled BUN 121 H* 141 H* Cancelled Creatinine 3.3 H 4.7 H Cancelled Glucose 146 H 261 H Cancelled Calcium 8.4 L 7.9 L Cancelled Cardiac Enzymes 08/05/23 Range/Units 03:36 Creatine Kinase 1434 H* (39-308) U/L Liver Function 08/05/23 08/06/23 Range/Units 03:36 03:33 Total Bilirubin 1.3 H 1.3 H (0.15-1.2) mg/dL AST 40 24 (0-40) U/L ALT 22 18 (0-41) U/L Alkaline Phosphatase 248 H 211 H (40-130) U/L Albumin 2.5 L 2.4 L (3.5-5.2) g/dL Coags 08/04/23 08/04/23 08/05/23 15:03 21:03 03:36 ESR APTT 33.8 50.5 H 48.1 H C-Reactive Protein 08/05/23 08/05/23 08/05/23 03:36 10:23 16:05 ESR 60 H APTT 64.2 H 35.6 C-Reactive Protein 08/05/23 08/05/23 08/06/23 21:45 21:45 03:33 ESR APTT 52.7 H C-Reactive Protein 222.0 H 198.1 H 08/06/23 03:33 ESR APTT 62.3 H C-Reactive Protein ABG 08/03/23 08/04/23 08/04/23 23:54 08:49 16:30 Specimen Type Arterial Arterial Arterial Sample Site Radial, right Radial, left Radial, right ABG pH 7.21 L 7.26 L 7.36 ABG pCO2 76.2 H* 60.3 H* 48.4 H ABG pO2 161.0 H 116.0 H 77.5 L ABG PO2/FiO2 Ratio 0 0 ABG HCO3 30.4 H 27.2 H 27.2 H ABG O2 Saturation 98.9 99.1 ABG Base Excess 0.1 -1.0 1.1 A-a O2 Gradient Not Reportable 12.9 H O2 Delivery Device Nrb Bipap Bipap O2 Liters/Min 15.0 FiO2 40.0 30.0 Tidal Volume PEEP 08/05/23 08/06/23 08/06/23 05:01 04:01 08:44 Specimen Type Arterial Arterial Arterial Sample Site Radial, right Radial, right Radial, left ABG pH 7.32 L 7.28 L 7.24 L ABG pCO2 50.4 H 51.8 H 56.9 H ABG pO2 71.9 L 98.2 89.1 ABG PO2/FiO2 Ratio 0 0 0 ABG HCO3 25.9 24.1 24.4 ABG O2 Saturation 97.1 ABG Base Excess -0.7 -3.4 L -3.6 L A-a O2 Gradient 7.4 O2 Delivery Device Bipap Bipap Bipap O2 Liters/Min FiO2 30.0 30.0 30.0 Tidal Volume 0.45 0.45 0.55 PEEP 8.0 8.0 8.0 Microbiology 08/03/23 23:30 Blood Culture - Preliminary Blood Staphylococcus aureus 08/03/23 22:22 Blood Culture - Preliminary Blood Staphylococcus aureus 08/04/23 18:25 Gram Stain - Final Sputum - Expectorated Sputum Sputum Culture - Preliminary 08/05/23 10:23 Blood Culture - Preliminary Blood NEGATIVE TO DATE 08/05/23 10:28 Blood Culture - Preliminary Blood NEGATIVE TO DATE 08/04/23 06:20 Urine Culture - Final Urine,Clean Catch Cardiac Studies: Echocardiogram 08/04/23
--- NOTE | 2023-08-06 16:23 | P.CONIM_ITS ---
Providers/Reason For Consult Consulting Physician/Specialty*: General surgery Reason for Consult*: Need for dialysis access. Attending Physician: Yenny Meyers MD Primary Care Provider: Latoya Dumont DO History of Present Illness History of Present Illness Frank Estes Jr is a 62 year old male admitted with septic arthritis and sepsis, who has noted to have a deterioration of his kidney function. Dialysis is indicated and therefore I was consulted for dialysis catheter placement. After discussing with medical team and orthopedic team we have decided to avoid placement on the right IJ due to patient is for significant debridement on the right shoulder region that may extend up to the neck. Review of Systems 2 Narrative: Unable to complete due to patient clinical status Medications/Allergies Home Medications Medication Instructions Recorded Confirmed Last Taken Type amlodipine 10 mg tablet 10 mg PO DAILY 30 days #30 tabs 12/05/21 08/04/23 08/03/23 Rx insulin syringe-needle U-100 1 mL #200 ea 07/24/22 08/04/23 Unknown Rx 31 gauge x 15/64 (BD Veo Insulin Syringe Ultra-Fine) diabetic shoes #1 ea 01/30/23 08/04/23 Unknown Rx aspirin 325 mg tablet 325 mg PO DAILY 03/21/23 08/04/23 08/03/23 History insulin syringe-needle U-100 1 mL #200 ea 04/23/23 08/04/23 Unknown Rx 31 gauge x 5/16 (BD Insulin Syringe Ultra-Fine) dulaglutide 3 mg/0.5 mL See Rx Instructions .Route 05/30/23 08/04/23 Unknown Rx subcutaneous pen injector .COMPLEX #4 mL (Trulicity) insulin glargine 100 unit/mL See Rx Instructions SUBCUT BID 90 05/30/23 08/04/23 08/03/23 Rx subcutaneous solution (Lantus days #10 mL U-100 Insulin) blood sugar diagnostic (Accu-Chek #100 ea 06/26/23 08/04/23 Unknown Rx Violeta Plus test strips) cyclobenzaprine 10 mg tablet 10 mg PO TID PRN muscle spasm #30 07/31/23 08/04/23 Unknown Rx tabs hydrocodone 5 mg-acetaminophen 325 1 tab PO TID PRN pain 7 days #21 07/31/23 08/04/23 Unknown Rx mg tablet tabs albuterol sulfate 90 mcg/actuation 2 puff inhalation QID PRN 08/04/23 08/04/23 Unknown History aerosol inhaler (Ventolin HFA) Shortness Of Breath carvedilol 6.25 mg tablet 6.25 mg PO BID 08/04/23 08/04/23 08/03/23 History hydrochlorothiazide 25 mg tablet 25 mg PO DAILY 08/04/23 08/04/23 08/03/23 History indomethacin 50 mg capsule 50 mg PO TID PRN gout 08/04/23 08/04/23 Unknown Histo ry lisinopril 10 mg tablet 10 mg PO DAILY 08/04/23 08/04/23 08/03/23 History metformin 500 mg tablet 500 mg PO BID 08/04/23 08/04/23 08/03/23 History rosuvastatin 10 mg tablet 10 mg PO DAILY 08/04/23 08/04/23 08/03/23 History Allergies Allergy/AdvReac Type Severity Reaction Status Date / Time No Known Allergies Allergy Verified 08/03/23 22:57 Current Medications Generic Name Dose Route Start Last Admin Trade Name Freq PRN Reason Stop Dose Admin Acetaminophen 650 mg 08/04/23 04:39 08/05/23 09:19 Acetaminophen 325 Mg Tablet PO 650 mg Q6H PRN Administration Mild/Mod Pain Or Temp >/= 101 Hydrocodone Bitart/Acetaminophen 1 tab 08/05/23 19:32 08/06/23 09:10 Hydrocodone-Acetaminophen 5-325 Mg Tablet PO 1 tab Q12H PRN Administration MODERATE PAIN Carvedilol 6.25 mg 08/05/23 18:00 08/06/23 09:10 Carvedilol 6.25 Mg Tablet PO 6.25 mg BID ESAU Administration Furosemide 60 mg 08/05/23 18:00 08/06/23 09:11 Furosemide 10 Mg/Ml Sdv 4ml IVP 60 mg BID ESAU Administration Heparin Sodium (Porcine) 0 unit 08/04/23 02:15 08/05/23 04:27 Heparin 5,000 Unit/Ml Inj 1 Ml IV 2,700 unit PRN PRN Administration Heparin weight-base protocol Protocol Heparin Sodium/Sodium Chloride 25,000 unit in 500 mls @ 0 mls/hr 08/04/23 02:15 08/06/23 07:55 Heparin Drip IV Infused .Q0M ESAU Titration Protocol Per Protocol Cefepime HCl 1,000 mg/ Sodium 50 mls @ 100 mls/hr 08/04/23 07:00 08/06/23 07:30 Chloride IV Infused Q12H ESAU Infusion Protocol Metronidazole 500 mg in 100 mls @ 100 mls/hr 08/05/23 08:30 08/06/23 12:30 Flagyl Iv IV Infused Q8H ESAU Infusion Protocol Vancomycin/PEG/NADA/Lysine/Water 2,000 mg in 400 mls @ 200 mls/hr 08/06/23 08:00 08/06/23 12:30 Vancocin IV Infused Q36H ESAU Infusion Albumin Human 25 g in 100 mls @ 60 mls/hr 08/05/23 16:45 08/06/23 12:45 Albumin IV Infused Q8H ESAU Infusion Dopamine HCl/Dextrose 400 mg in 250 mls @ 29.002 mls/hr 08/06/23 13:45 08/06/23 14:06 Intropin Drip IV 5 mcg/kg/min CONT ESAU 29 mls/hr Administration Protocol 5 MCG/KG/MIN Insulin Human Lispro 0 unit 08/05/23 08:00 08/06/23 12:40 Insulin Lispro 100 Unit/1 Ml SUBCUT 8 unit TIDWM ESAU Administration Protocol Pantoprazole Sodium 40 mg 08/04/23 04:45 08/06/23 05:00 Pantoprazole 40 Mg Sdv IVP 40 mg Q24H ESAU Administration PFSH Acute PFSH: Medical History (Updated 08/06/23 @ 07:24 by James Shen MD) Amputation of left great toe Aortic stenosis Arthralgia of back Arthropathy of lumbar facet joint Benign essential HTN Chronic pain of both shoulders Diabetic ulcer of right foot associated with diabetes mellitus due to underlying condition, 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 Dyslipidemia Elevated troponin Encounter for long-term use of opiate analgesic Fracture of distal phalanx of right middle finger History of amputation of toe Infection of finger Opioid contract 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 Pain in right foot Sepsis Spinal stenosis, lumbar region without neurogenic claudication 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 Uncontrolled type 2 diabetes mellitus, with long-term current use of insulin Surgical History H/O right knee surgery Hx laparoscopic cholecystectomy Hx of foot surgery Family History Unknown Diabetes Father Stroke Social History Smoking and tobacco/nicotine status: former use of tobacco/nicotine Second hand smoke exposure: No Alcohol intake: never Substance/Drug Use: never Vitals/I&O/Wt Last Vital Signs Temp 97.6 F 08/06/23 12:47 Pulse 56 L 08/06/23 16:00 Resp 16 08/06/23 13:00 BP 104/46 08/06/23 12:30 Pulse Ox 92 08/06/23 16:00 O2 Del Method Nasal Cannula 08/06/23 12:30 O2 Flow Rate 4 08/06/23 12:30 FiO2 30 08/06/23 16:00 08/06/23 08/06/23 08/06/23 06:59 14:59 22:59 Intake Total 200 / 2874 1180 / 1180 Output Total 120 / 520 Balance 80 / 2354 1180 / 1180 Weight last 48 hrs Weight 341 lb Weight 330 lb Physical Exam Narrative: Patient is disoriented, appears to be in poor clinical condition, with altered mental status and requiring BiPAP for adequate oxygenation. Neck/C-Spine: OTHER: Left neck evaluated and noted to have a patent left IJ. Extremity: NARRATIVE EXTREMITY EXAM: Bilateral groins were evaluated for possibility of dialysis catheter, no good target vascular anatomy was identified. Urinary Catheter Management: Manuel: Cath Placed During This Visit: yes Reason for Continuing Indwelling Catheter: Accurate Measurement of Urinary Output in Critically Ill Patients Urinary Catheter Date of Insertion: 08/04/23 Urinary Catheter Time of Insertion: 05:12 Data 08/06/23 03:33 08/06/23 03:33 Micro: Microbiology 08/03/23 23:30 Blood Culture - Preliminary Blood Staphylococcus aureus 08/03/23 22:22 Blood Culture - Preliminary Blood Staphylococcus aureus 08/04/23 18:25 Gram Stain - Final Sputum - Expectorated Sputum Sputum Culture - Preliminary 08/05/23 10:23 Blood Culture - Preliminary Blood NEGATIVE TO DATE 08/05/23 10:28 Blood Culture - Preliminary Blood NEGATIVE TO DATE 08/04/23 06:20 Urine Culture - Final Urine,Clean Catch A&P Assessment and plan (1) Sepsis: (2) CKD stage 3 due to type 2 diabetes mellitus: Plan After complete history, physical examination and review of all available clinical data the following is my assessment. Patient requires dialysis access for hemodialysis to be started during this hospital admission. Patient is in critical condition, after discussion with family member regarding risk benefits of the procedure including the risk of pneumothorax, infection, damage to the great vessels of the chest, perforation of the heart, need for vascular inter vention, that family member has agreed for us to proceed as this is a emergent procedure that will require to save the patient life. After a timeout was conducted and appropriate patient verification was done, I proceeded to place a left IJ dialysis catheter. IJ was cannulated under ultrasound guidance, adequate return of blood was noted from the catheter at the end of the procedure. Patient remained stable during the duration of the procedure. Catheter can be used as soon as an x-ray is done. Coding Level of Care Code 75536 Diagnoses Sepsis A41.9 CKD stage 3 due to type 2 diabetes mellitus E11.22; N18.30
--- NOTE | 2023-08-06 16:28 | P.PCN_ITS ---
Procedure/Consent Consent: Additional Consent Information: Consent obtained from patient's and was discussed with patient's and daughter due to patient clinical condition. Family members no high risk of the procedure including the risk of pneumothorax perforation of the great vessels cannulation of the carotid artery and perforation of the heart and they wish to proceed. Procedure Narrative: After a timeout was conducted, the skin of the left neck was prepped and draped in the usual sterile fashion. The IJ was identified with ultrasound, local anesthesia was infiltrated at this level. I then proceeded to access left IJ w ith ultrasound guidance, needle tip was identified Has a puncture of the left IJ. A guidewire was passed. The needle was removed and the guidewire position was verified with ultrasound. I then proceeded to make a 5 mm incision at the level of the wire insertion into the neck, the catheter will progress and dilated with subsequent sizes of dilators. Then the catheter was advanced over the guidewire, maintaining control of the guidewire at all times. After the catheter was advanced immediate return of venous blood was noted from both lumens. The patient had remained stable during this time. I was able to aspirate blood from both lumens and flushed both lumens with no difficulties. I then proceeded to fix the catheter to the skin with sutures and placed a sterile dressing. Patient tolerated well the procedure remained in the ICU in critical condition.
--- NOTE | 2023-08-06 16:32 | XRR_ITS ---
PROCEDURE INFORMATION: Exam: XR Chest Exam date and time: 08/06/2023 5:39 PM Age: 62 years old Clinical indication: Device placement; Other: Dialysis cath; Additional info: Dialysis cath placement TECHNIQUE: Imaging protocol: Radiologic exam of the chest. Views: 1 view. COMPARISON: CR XR chest 1V portable [id number] 08/06/2023 2:24 PM FINDINGS: Tubes, catheters and devices: Patient has undergone placement of a dialysis catheter via left jugular approach whose tip terminates at the cavoatrial junction. Lungs: There is diffuse vascular congestion within the visualized portion of the lung schmitt. Pleural spaces: Unremarkable. No pleural effusion. No pneumothorax. Heart/Mediastinum: Heart appears enlarged. Bones/joints: Unremarkable for age. XR/XR chest 1V portable [id number] IMPRESSION: Interval placement of left-sided dialysis catheter whose tip terminates at the cavoatrial junction.
--- NOTE | 2023-08-06 16:34 | W.PM.OPSUD ---
Surgery/Procedure H&P Update DATE OF PROCEDURE: August 06, 2023 DATE H&P PERFORMED: 08/04/23 H&P UPDATE INFORMATION: I have reviewed H&P completed within last 30 days, I have examined patient prior to procedure, No changes to prior documentation and H&P is in [facility] on date indicated PRIMARY INDICATION FOR PROCEDURE: Suspected right foot abscess PLANNED PROCEDURE: Operation Date: 08/06/23 13:40 Proposed Procedures p Incision & Drainage right shoulder(Right) - DO mei Perez Incision And Drainage right foot(Right) - Narinder Smith DPM
[2023-08-06 16:56] LABS: ABG PCO2 56.6 mmHg (35-45); ABG PH Result 7.23 (7.35-7.45); Alveolar-Arterial Oxygen Gradi 4.5 mmHg (5-10); Arterial Blood Gas Hematocrit 36.9 % (42-52); Base Excess ABG -4.3 mmol/L (-2.0-2.0); Blood Gas Allen Test Pos; Carboxyhemoglobin 1.8 %THgb (0.4-20.1); HCO3 ABG 23.8 mmol/L (22-26); HGB O2 Sat 79.3 % (95-100); Ionized Calcium Level - ABG 1.1 mmol/L (1.1-1.4); Methemoglobin 0.6 % (0.4-1.5); Oxygen Saturation ABG 81.3
[2023-08-06 17:05] LABS: Glucose Point of Care 189 mg/dL (70-110)
--- NOTE | 2023-08-06 17:05 | W.PM.OPSUD ---
Surgery/Procedure H&P Update DATE OF PROCEDURE: August 06, 2023 DATE H&P PERFORMED: 08/05/23 H&P UPDATE INFORMATION: I have reviewed H&P completed within last 30 days, I have examined patient prior to procedure and No changes to prior documentation CHANGES TO PREVIOUS DOCUMENTATION: Patient seen and evaluatedToday after MRI. At this point in time concern for complex infection of the right shoulder. Talked about this with patient as well as spouse at bedside plan to proceed with right shoulder irrigation and debridement. We will do this in conjunction with Dr. Smith as well and he will perform a right foot I&D. Detailed out the risk benefits complication alternatives with surgery more specifically with the as he is currently on BiPAP. He has had a slight downtrend in his WBC count but still requiring some pressure support as well as on BiPAP. Plan will be for a long deltopectoral approach to decompress right shoulder abscess may potentially need to perform distal clavicle excision just to help encourage antibiotics to this area given the signal changing for osteomyelitis. Talked about the ins and outs procedure risk benefits complication alternatives with surgery. At this point time his prognosis is guarded given his requirement of BiPAP is high WBC count as well as medical comorbidities, and patient currently has a pulmonary embolus. We will plan on obtaining source control today with extensive I&D of the right shoulder and right foot. They understand incidence procedure risk benefits complication alternatives with surgery risk of surgery include not limited to make it better make it worse, injury to nerves vessels or tendons, further surgery, wound complications, blood clot, heart attack, stroke, on the table. Understanding risks with surgery has signed consent and elects to proceed all questions answered. PREOP DIAGNOSIS: Right shoulder infection/abscess PRIMARY INDICATION FOR PROCEDURE: Right shoulder infection/abscess PLANNED PROCEDURE: Operation Date: 08/06/23 13:40 Proposed Procedures p Incision & Drainage right shoulder(Right) - Montez Price DO s Incision And Drainage right foot(Right) - Narinder Smith DPM
--- NOTE | 2023-08-06 17:10 | PC.NURSE ---
Pt off unit to surgery.
--- NOTE | 2023-08-06 17:20 | P.PN_ITS ---
Subjective Subjective: Patient seen and examined after MRI today. Patient currently on BiPAP spouse at bedside. MRI demonstrates significant infection of the right shoulder. Plan to proceed with right shoulder I&D today given patient at this point in time still has significantly elevated white blood cell count does not appear to be responding to antibiotics and clinically does not appear to be improving. Vitals/I&O/Wt Last Vital Signs Temp 97.6 F 08/06/23 12:47 Pulse 56 L 08/06/23 16:00 Resp 16 08/06/23 13:00 BP 104/46 08/06/23 12:30 Pulse Ox 92 08/06/23 16:00 O2 Del Method Nasal Cannula 08/06/23 12:30 O2 Flow Rate 4 08/06/23 12:30 FiO2 30 08/06/23 16:00 08/06/23 08/06/23 08/06/23 06:59 14:59 22:59 Intake Total 200 / 2874 1180 / 1180 Output Total 120 / 520 Balance 80 / 2354 1180 / 1180 Weight last 48 hrs Weight 341 lb Weight 330 lb Physical Exam Narrative: Examination patient is Arousable to verbal stimuli however he is currently on BiPAP and does appear to be confused. Spouse is at bedside. Examination of the right shoulder patient has asymmetric swelling over the superior and lateral aspect of the right shoulder with warmth to the touch as well as subtle erythema there is no subcutaneous gas pull or crepitus noted on examination. Patient withdraws to pain and is in significant tenderness palpation of the right ksenia ulder.No wounds noted. No worsening erythema or swelling noted. Patient has bandage on the right foot with previous amputation site being monitored by podiatry and dressing was not taken down and inspected. Right shoulder marked for surgical intervention Urinary Catheter Management: Manuel: Cath Placed During This Visit: yes Reason for Continuing Indwelling Catheter: Accurate Measurement of Urinary Outpu t in Critically Ill Patients Urinary Catheter Date of Insertion: 08/04/23 Urinary Catheter Time of Insertion: 05:12 Data 08/06/23 03:33 08/06/23 03:33 Micro: Microbiology 08/03/23 23:30 Blood Culture - Preliminary Blood Staphylococcus aureus 08/03/23 22:22 Blood Culture - Preliminary Blood Staphylococcus aureus 08/04/23 18:25 Gram Stain - Final Sputum - Expectorated Sputum Sputum Culture - Preliminary 08/05/23 10:23 Blood Culture - Preliminary Blood NEGATIVE TO DATE 08/05/23 10:28 Blood Culture - Preliminary Blood NEGATIVE TO DATE 08/04/23 06:20 Urine Culture - Final Urine,Clean Catch MRI: Radiologist's impression: Right shoulder MRIIMPRESSION: 1. Markedly abnormal MRI RIGHT shoulder. There is a large amount of edema predominantly within the deltoid and pectoralis muscles. Numerous fluid c ollections in the deltoid muscle are likely abscesses. No IV contrast was given for this examination. 2. Additional very complex ill-defined collection at the region of the AC joint extending superiorly suspicious for septic joint or inflammatory arthropathy.. The fluid collections extending into the deltoid muscle are contiguous with the AC joint. 3. Abnormal marrow signal in the acromion and distal clavicle suggesting osteonecrosis and infection. 4. Abnormal biceps tendon and biceps tendon sheath. Marked thickening with complex fluid. A&P Assessment and plan (1) Sepsis: (2) Infection of shoulder: (3) Abscess of right shoulder: (4) Type 2 diabetes mellitus: (5) Pulmonary embolism: (6) VERONICA (acute kidney injury): Plan MRI reviewed and discussed with spouse at bedside Patient has significant right shoulder abscess and infection recommend surgical intervention Plan to proceed with right shoulder I&D as well as right foot I&D today. Guarded prognosis at this time given patient's complex medical history significant infection and poor clinical condition given patient does have PE as well as sepsis and requiring pressure support and BiPAP. To the OR today right shoulder I&D and right foot I&D we will coordinate with podiatry. Obtain consent with at bedside refer to HPI note for details. Attestations Medical Necessity Statement*: Right shoulder infection/abscess Coding Level of Care Code Acute Code for [facility] Fwd Diagnoses Sepsis A41.9 Infection of shoulder M00.9 Abscess of right shoulder L02.413 Type 2 diabetes mellitus E11.9 Pulmonary embolism I26.99 VERONICA (acute kidney injury) N17.9 Time Spent (min) 25
[2023-08-06 17:36] LABS: Blood Gas Operator Identificat MONRO; Blood Gas Sample Site Radial, left; Blood Gas Sample Type MixedVenous; Blood Gas Tidal Volume 0.55; Oxygen Device BIPAP; PO2 FiO2 Ratio Arterial Blood 0
--- NOTE | 2023-08-06 18:24 | P.BOP_ITS ---
Date of procedure: 08/06/2023 Surgeon name: Dr. Narinder Smith D.P.M. Administrative Appeals Tribunal Member(s) name(s): None Procedure(s) performed: Incision bone cortex right foot with removal of nonviable tissue and bone Description of findings: Degenerative changes to distal aspect of third metatarsal head right foot consistent with osteomyelitis. Small accumulation of purulence surrounding metatarsal head. No evidence of other underlying deep space abscess. Estimated blood loss: 10 cc Tourniquet time: No tourniquet Specimen(s) removed: Third metatarsal head right foot sent to pathology as surgical specimen, cultures both aerobic and anaerobic right foot Post-operative diagnosis: Right foot abscess, osteomyelitis
--- NOTE | 2023-08-06 18:31 | P.OP_ITS ---
Operative Report Date of procedure: August 06, 2023 Pre-op diagnosis: Abscess right foot Post-op diagnosis: Abscess right foot, osteomyelitis third metatarsal head right foot Post-op findings: Degenerative changes to distal aspect of third metatarsal head consistent with osteomyelitis. Small surrounding abscess to third metatarsal head. No evidence of deep underlying abscess or proximal tracking. Procedure done: Incision bone cortex right foot CPT 28509 Specimens removed/disposition: Third metatarsal head right foot sent to pathology for surgical specimen. Aerobic and anaerobic culture sent to micro for ID and sensitivity Surgeon: Narinder Smith DPM Estimated blood loss: 10 cc Complications: None Findings: See above Procedure: Patient is a 62-year-old male that has a history of chronic right foot ulceration. Patient presented to the emergency department on 08/03/2023 with chief complaint of weakness. During the course of his admission work-up has revealed bacteremia with unknown source. Given chronicity of right lower extr emity ulcerations concern is for right foot abscess. CT scan was obtained which showed degenerative changes and possible abscess formation. Patient also has other comorbidities that have been found on exam such as pulmonary embolism and likely right shoulder infection which are being attended to by other specialties. The concern for right foot abscess necessitates trip to the operating room today for formal washout and removal of devitalized tissue and bone. A lengthy discussion regarding the procedure, including risks and complications has been had with the patient and is noted in the recent clinic note. Written and verbal consent have been obtained. All patient questions have been answered to the patient?s satisfaction. No written or verbal guarantees have been given or implied. The patient has been NPO since midnight. The history has been reviewed and the history and physical is current. The signed consent was confirmed and placed in the patient chart. Patient imaging has been reviewed and is consistent with the diagnosis. Under mild sedation, the patient was brought into the operating room and placed on the table in the supine position. IV antibiotics were given by the anesthesia team as preoperative surgical prophylaxis. General sedation was then performed by the anesthesiateam. The operative extremity was then prepped and draped in the usual fashion. After prep, the following procedure was then performed. Attention was directed to the right foot where a full-thickness ulceration plantar to the third metatarsal head was noted. This had positive purulent drainage with positive probe to bone to the plantar aspect of the third metatarsal head. A 4.5 cm incision was made from the proximal aspect of the wound onto the dorsum of the foot following the course of the third metatarsal. This incision was made full-thickness down to the level of bone. Blunt dissection was carried out surrounding the third metatarsal head to expose it in its entirety. There was noted to be abscess formation with mazin purulence surrounding the third metatarsal head. This was noted to be isolated to the third metatarsal head region. No evidence of deep space infection or tracking proximally. The third metatarsal head was noted to have degenerative changes consistent with osteomyelitis. #15 blade was used to score the third metatarsal head and dissect the periosteum. A mallet and osteotome were then used to resect the distal aspect of the third metatarsal. This was then passed from the operative field be sent as surgical specimen. Cultures both aerobic and an aerobic were taken at this point. A rongeur was used to remove remaining devitalized tissue of the area. The plantar wound was excised using #15 blade. The remaining tissues of the foot remained healthy and viable. No further purulence expressed from the foot. The site was then irrigated with copious amounts of sterile saline via cystoscopy tubing. The incision was then closed using 3-0 nylon and retention suture fashion as well as horizontal mattress fashion. Hemostasis was noted to be achieved. The incision site was dressed with Xeroform, 4 x 4 gauze, ABD, Kerlix, 4 inch Nii. The patient tolerated the procedure and anesthesia well and without complication. The patient was transported from the operating room to the recovery room with vital signs stable and vascular status intact to right foot. The patient was instructed to remain nonweightbearing to the operative extremity, to keep surgical dressing clean, dry and intact. The patient will be transferred back to the floor once anesthesia criteria is met. I will continue to round on and follow the patient in the inpatientsetting and provide recommendations to stabilize the patient for discharge.
--- NOTE | 2023-08-06 18:37 | PC.NURSE ---
SHift summary: Pt has been very lethargic and drowsy this shift. MRI of his right shoulder completed. He has had a PICC and a Dailysis cath inserted on his left side. HIs right shoulder is very tender and painful. He has been using BiPap most of the shift, AVAPS setting with fio2 at 30%. His urine output was just 200ml this shift. Family has been attentive at bedside. He is now in surgery.
[2023-08-06] MEDS: vancomycin 1,000 MG SDV 1000 MG INTRA-ARTI (19:00)
--- NOTE | 2023-08-06 19:44 | P.BOP_ITS ---
Date of Procedure: [August 06, 2023] Surgeon: [Dr. Albert CRESPO] Longwall Shearer Operator(s): [Gaston Price physician associate] Procedure(s) performed: [Right shoulder I&D, incisional wound [id number], distal clavicle resection, deep drain VAC placement] Findings of the procedure(s): [Right shoulder abscess, septic ac joint, distal clavicle osteomyelitis, procedure went as planned without issues, significant infection is noted, pt returned to ICU, remain intubated and requiring pressure support. prognosis continues to be gaurded] Estimated blood loss: [150ml] Specimen(s) removed: [Right shoulder abscess cultures and right distal clavicle bone resection sent for path and cultures] Post-operative diagnosis: [Right shoulder abscess, septic ac joint, distal clavicle osteomyelitis, procedure went as planned without issues, significant infection is noted, pt returned to ICU, remain intubated and requiring pressure support. prognosis continues to be gaurded]
[2023-08-06] MEDS: norepinephrine 4 MG/250 ML BAG 7.5 MG IV (20:24)
[2023-08-06] MEDS: propofol 1,000 MG/100 ML INJ 4.64 MG IV (20:24)
--- NOTE | 2023-08-06 21:00 | ANE.PACU2 ---
Inpatient post-anesthesia follow up: Airway intact: No Vital signs: Temperature 98.8 F Pulse Rate 113 Respiratory Rate 16 Blood Pressure 101/54 Pulse Oximetry 96 Oxygen Delivery Me thod Mechanical Ventila tion Oxygen Flow Rate 100 Fraction of Inspir ed Oxygen 40 Hydration adequate: Yes Nausea and vomiting: No Pain level: 1 Mental status: Altered Additional Comments: intubated and sedated
[2023-08-06] MEDS: heparin, porcine 1,000 unit/mL INJ 10 mL 1000 UNIT IV (21:03)
--- NOTE | 2023-08-06 21:14 | PM.OP ---
Operative Report Date of procedure: August 06, 2023 Pre-op diagnosis: Abscess right shoulder, septic AC joint and distal clavicle osteomyelitis Post-op diagnosis: Same Post-op findings: See operative report for details Procedure done: Right shoulder incision and drainage (irrigation debridement of skin subcutaneous tissue fat fascia tendon/muscle and bone) (wound size 23 cm x 7 cm x 5 cm) Right shoulder distal clavicle bone excision and sent for pathology Right shoulder deep drain placement and incisional VAC placement Implants: Deep drain and incisional VAC application Specimens removed/disposition: Cultures taken of superficial and deep abscess Cultures also taken and pathology for distal clavicle bone Pathology: Micro/cultures for abscess as well as distal clavicle bone sent for pathology Surgeon: Montez Price DO Senior Category Manager: Gaston Price PA-C: PA was necessary for assistance in this case with assistance and retraction protection of neurovascular structures and assistance with irrigation and debridement of tissues as well as to assist with wound closure deep drain and VAC placement Anesthesia: General Estimated blood loss: 150 mL IV fluids: 500 mL Urine output: Refer to anesthesia note Complications: No complications with surgery, patient prognosis still is guarded and remains intubated on pressure support taken to ICU postoperatively Findings: See operative report narrative Condition: critical Disposition: ICU Brief History: Patient is a 62-year-old gentleman who was admitted secondary to acute respiratory failure. He had had some improvement with this however was in ICU and was complaining of right shoulder pain he had significant elevated WBC count and hospitalist concern for sepsis with at that point in time no known source complaint of right shoulder pain and at this point in time orthopedics was consulted for evaluation as patient had a CT scan showing possible abscess of the right shoulder. Patient also has a PE and on a heparin drip this was coordinated with the hospitalist for surgical intervention earlier this morning we had patient have an MRI for further evaluation in detail and the extent of this complex right shoulder infection In the abscess in order to help guide surgical approach and treatment. He completed this and once again confirms right shoulder multiloculated abscess with peers to have a fact of the AC joint. As result he is on BiPAP and we discussed this case with his spouse at bedside he does respond to voice commands at this point in time given his medical condition we talked with the spouse about treatment options this point time would recommend right shoulder I&D. understands and sounds procedure risk benefits complication alternatives of surgery. Understands risk of surgery patient's elects proceed all questions been answered at this time. Procedure: Patient was seen and evaluated in ICU and plan was for transfer directly from ICU to surgery. Consent was reviewed and signed correct extremity marked as well as preoperatively planned incision. Anesthesia then saw and evaluated patient and once ready for surgery was taken back from ICU to the OR. Patient then underwent anesthesia and monitoring by the anesthesia department once anesthetized patient was then transferred onto the OR table with Patient in a supine position. All bony prominences well-padded patient was appropriate secured to the bed. This procedure was going to be performed in tandem with Dr. Welsh as he was going to I&D the right foot. The right shoulder was then prepped and draped in standard orthopedic fashion final timeout performed. Patient been receiving appropriate antibiotics perioperatively. This point in time a standard deltopectoral incision was then subsequently made. Sharp scalpel incision was made through skin and subcutaneous tissue I did carried this up over top of the AC joint as this was noticed to being the most concerning area for infection less likely bone work need to be performed. Sharp scalpel made through subcutaneous tissue as well as maintain exact hemostasis with bipolar electrocautery I then encountered the deltopectoral fascia. Patient was noted to have some necrosis and the abscess was noted to be through the anterior third of the deltoid muscle and this was the plane that was already divided as result I followed this plane instead and debrided the deltoid musculature that was necrotic and nonviable. I immediately encountered purulence I evacuated all this underneath the deltoid space I then mobilized the anterior portion and posterior portion of the deltoid and use this as my plane as this was what the abscess is already divided into. The abscess then subsequently tracked and had a pocket that was underneath the pectoralis muscle blunt dissection was used and decompress this abscess I then subsequently went up underneath the subacromial space there was a small abscess here as well as most pronounced abscess over top of the AC joint with necrosis of the AC capsular ligaments. The distal portion of the clavicle was slightly soft and concerning findings for osteomyelitis. At this point in time I utilize electrocautery to mobilize my tissues as well as then placed Hohmann retractors underneath the AC joint for protection and utilized a TPS saw to perform a distal clavicle excision and the bony remnants were then sent for pathology for evaluation for cultures as well as specimen. I then debrided the end of the acromion as well and the AC joint was appropriately decompressed and irrigated I utilized a rongeur to excise all abscess and devitalized tissue which the size of the wound included 23 cm x 7 cm x 5 cm this was all debrided of nonviable tissue of skin subcutaneous tissue fat fascia muscle tendon and bone. This was performed with sharp scalpel excision as well as rongeur. Once I debrided this to all stable healthy appearing tissue I then utilized 6 L of normal saline Pulsavac and irrigated all abscess pockets underneath the pectoralis underneath the deltoid within the interval as well as above and underneath the AC joint. This did not appear to communicate at all with into the glenohumeral joint as result given the infection did not want to allow this to track with into the joint and cause a septic glenohumeral joint. As result this and the subscap was left alone. 6 L was irrigated and then subsequently I let soak diluted Betadine solution within the wound bed. While this was being performed I subsequently set up my deep drain and incisional VAC and cut this to appropriate size. Once this was allowed to sit for 5 minutes I then subsequently irrigated with another 3 L of Pulsavac to debride and irrigate all of the Betadine solution out of the tissues. At this point time I had hemostasis as well as a clean wound bed with no further areas of purulence noted. And the debridement was taken to viable tissue. Patient had been on a heparin drip and definitely had a little bit of oozing hemostasis betts as result I elected to use Arixtra powder for hemostasis assistance postoperatively as well as placed 2 g of vancomycin powder within the incisional wound bed. I then closed the deltoid interval with 0 PDS suture as well as close the subcutaneous tissue with 2-0 PDS suture. I then incorporated my deep drain that was laid deep within the wound bed out of the incision distally and then incorporated this into the black foam sponge incisional dressing to allow for closing down of the space and evacuation of any accumulating abscess or hematoma deep within the incision. This was then incisional VAC was then placed with the deep drain incorporated this had excellent seal and was hooked up to wound VAC. This point in time patient tolerated the procedure remained intubated and was transported back to the hospital bed and taken to ICU in critical condition remains intubated and on pressure support. Family was subsequently staffed and updated about the findings intraoperatively. Disposition: Patient taken to ICU. Prognosis at this point time is guarded given the extent of the right shoulder infection. On pressure support and intubated. Orthopedics will continue to follow and monitor deep drain output. Plan for possibly pulling deep drain and 2 to 4 days depending on output. Orthopedics will continue to follow along defer to primary team for empiric antibiotic coverage. Family understands and agrees with current plan. All questions answered. Family appreciative of care.
[2023-08-06 21:15] LABS: ABG PCO2 45.6 mmHg (35-45); ABG PH Result 7.23 (7.35-7.45); Alveolar-Arterial Oxygen Gradi 67.7 mmHg (5-10); Arterial Blood Gas Hematocrit 34.5 % (42-52); Blood Gas Allen Test Pos; Blood Gas Sample Site Radial, left; Blood Gas Sample Type Arterial; Carboxyhemoglobin 1.5 %THgb (0.4-20.1); HCO3 ABG 19.2 mmol/L (22-26); HGB O2 Sat 97.4 % (95-100); Methemoglobin 0.6 % (0.4-1.5); Oxygen Device VENT; Oxygen Saturation ABG 99.5; PO2 FiO2 Ratio Arterial Blood 0; Potassium Level - ABG 3.4 mmol/L (3.5-5.0); Total Hemoglobin 11.2 g/dL (14-18)
--- NOTE | 2023-08-06 21:46 | MR_ITS ---
WS: [id number] MRI RIGHT SHOULDER noncontrast. HISTORY: r/o shoulder infection/abscess COMPARISON: CT RIGHT shoulder 08/05/2023 TECHNIQUE: Multiplanar sequences of the shoulder joint are submitted. Study was performed without IV contrast. There is a large amount of diffuse soft tissue edema over the entire shoulder extending into the deep soft tissues including the muscles and the superficial soft tissues. More complex collection at the AC joint with fluid extending along the AC joint. Air was noted at the AC joint on the recent CT stud y. This is an ill-defined collection but highly suspicious for infection. Edema extends through the m uscles of the upper extremity especially the deltoid and pectoralis muscles. There are several pocket s of fluid in the deltoid muscle extending over the lateral humeral head. Loss of the normal overlying cortex of the clavicle and acromion. Most significant abnormality at the acromion suggesting underlying necrosis or osteomyelitis. Biceps tendon sheath is markedly thickened. Mild degenerative changes involving the humeral head with loss of cartilage. IMPRESSION: 1. Markedly abnormal MRI RIGHT shoulder. There is a large amount of edema predominantly within the de ltoid and pectoralis muscles. Numerous fluid collections in the deltoid muscle are likely abscesses. No IV contrast was given for this examination. 2. Additional very complex ill-defined collection at the region of the AC joint extending superiorly suspicious for septic joint or inflammatory arthropathy.. The fluid collections extending into the de ltoid muscle are contiguous with the AC joint. 3. Abnormal marrow signal in the acromion and distal clavicle suggesting osteonecrosis and infection. 4. Abnormal biceps tendon and biceps tendon sheath. Marked thickening with complex fluid.
--- NOTE | 2023-08-06 21:48 | PC.NURSE ---
Patient arrived from the OR with a soft blood pressure. Propofol and dialysis were about to be started so doctor was notified about soft blood pressures. Dr. Dinero ordered levophed to be started.
[2023-08-06 22:22] LABS: Glucose Point of Care 157 mg/dL (70-110)
[2023-08-06] MEDS: heparin, porcine 1,000 unit/mL INJ 10 mL 10000 UNIT INTRACATH (22:59)
--- NOTE | 2023-08-06 23:43 | PC.HD ---
LI dialysis catheter arterial port initially wouldn't draw, sandra sluggishly with manipulation of the catheter. Venous port initially sandra sluggishly but improved. AP immediately spiked upon initiation of treatment, would not run, lines reversed. AP was still high after reversing, BFR had to be reduced some as treatment progressed, and when blood returned, a large clot was noted in the arterial chamber and streaking noted to dialyzer. Pt hypotensive and on pressors prior to treatment but BP increased after treatment started and no further hypotension noted. Pt tolerated initial treatment well.
[2023-08-07] VITALS (59 sets, daily range): BP systolic 71–145; BP diastolic 35–75; PULSE 56–140; RESP 15–20; TEMP 37–37.5; O2SAT 93–100
[2023-08-07] MEDS: DOPamine drip 400 MG/250 ML PREMIX 72.5 MG IV ×2 (00:13→03:46)
[2023-08-07] MEDS: metroNIDAZOLE IV 500 MG/100 ML PREMIX 100 MG IV ×3 (00:33→17:12)
[2023-08-07] MEDS: albumin 25 G/100 ML BAG 60 G IV ×3 (00:34→18:42)
--- NOTE | 2023-08-07 00:45 | PC.NURSE ---
At the beginning of this nurse's shift the dopamine was running at 10 mcg/kg/hr but the MAR said it was at 5 mcg/kg/hr. This nurse titrated the dopamine up 2.5 mcg/kg/hr per protocol and changed MAR to reflect what the IV pump was actually running at.
[2023-08-07] MEDS: fentaNYL 1,000 MCG/100 ML BAG 2.5 MCG IV (02:54)
[2023-08-07] MEDS: propofol 1,000 MG/100 ML INJ 9.28 MG IV (03:04)
[2023-08-07 04:16] LABS: ABG PH Result 7.26 (7.35-7.45); Arterial Blood Gas Hematocrit 35.9 % (42-52); Base Excess ABG -4.4 mmol/L (-2.0-2.0); Blood Gas Sample Site Not specified; HCO3 ABG 23.1 mmol/L (22-26); Oxygen Device VENT; PO2 FiO2 Ratio Arterial Blood 0
[2023-08-07] MEDS: pantoprazole 40 mg SDV IVP (04:48)
[2023-08-07 05:13] LABS: Basophils # 0.2 10^3/uL (0.0-0.1); Basophils % 0.6 %; Eosinophils # 0.3 10^3/uL (0.0-0.8); Eosinophils % 1.1 %; Hematocrit 37.9 % (37-53); Lymphocytes # 1.1 10^3/uL (0.8-4.8); Lymphocytes % 4.2 %; Mean Corpuscular HGB Conc 30.6 g/dL (30-55); Mean Corpuscular Hemoglobin 27.4 pg (27-33); Mean Corpuscular Volume 89.4 fl (82-101); Mean Platelet Volume 13.4 fL (7.4-10.4); Monocytes % 7.3 %; Neutrophils # 21.78 10^3/uL (1.8-7.7); Neutrophils % 80.9 %; Nucleated Red Blood Cells % 0 %; Platelet Count 258 10^3/cmm (157-399); Red Blood Count 4.24 10^6/uL (3.85-5.65); White Blood Count 26.94 10^3/uL (3.29-11.43)
[2023-08-07 05:29] LABS: Slide Review Slide Review Perform
[2023-08-07 05:37] LABS: Creatine Phosphokinase 523 U/L (39-308)
[2023-08-07 05:38] LABS: Alanine Aminotransferase 16 U/L (0-41); Albumin Level 3.3 g/dL (3.5-5.2); Alkaline Phosphatase 228 U/L (40-130); Anion Gap 24.4 (5-19); Aspartate Amino Transferase 19 U/L (0-40); Calcium 8.2 mg/dL (8.5-10.5); Carbon Dioxide 20 mmol/L (22-29); Chloride 92 mmol/L (98-107); Glomerular Filtration Rate 10.4 mL/min (90-130); Glucose 197 mg/dL (65-115); Potassium 5.4 mmol/L (3.5-5.1); Sodium 131 mmol/L (136-145); Total Protein 5.3 g/dL (6.6-8.7)
[2023-08-07 05:44] LABS: Osmolality Calculated 315 mOsm/kg (285-295)
[2023-08-07 05:46] LABS: Blood Urea Nitrogen 117 mg/dL (8-23); Creatinine Clr Calc Pharmacy 22.5024
[2023-08-07 05:55] LABS: Glucose Point of Care 181 mg/dL (70-110)
--- NOTE | 2023-08-07 06:07 | PM.PN ---
Subjective Subjective: events noted s/p Temporary HD catheter placement and HD done last night Taken to OR for I&D of shoulder abscess Intubated , on Levophed and Dopanime UOP low Medications: Reviewed: Yes Vitals/I&O/Wt Last Vital Signs Temp 99 F 08/07/23 04:00 Pulse 61 08/07/23 05:30 Resp 15 08/07/23 04:04 BP 115/47 08/07/23 04:00 Pulse Ox 99 08/07/23 04:04 O2 Del Method Mechanical Ventilation 08/07/23 04:00 O2 Flow Rate 100 08/06/23 20:00 FiO2 60 08/07/23 04:04 08/06/23 08/06/23 08/07/23 14:59 22:59 06:59 Intake Total 1180 / 1180 975.076 / 2155.076 970.194 / 3125.270 Output Total 475 / 475 3152 / 3627 Balance 1180 / 1180 500.076 / 1680.076 -2181.806 / -501.730 Weight last 48 hrs Weight 167.5 kg Weight 154.675 kg Physical Exam Narrative: awake , alert no distress SQS2 RRR per report lungs clear per report + edema Urinary Catheter Management: Manuel: Cath Placed During This Visit: yes Reason for Continuing Indwelling Catheter: Accurate Measurement of Urinary Output in Critically Ill Patients Urinary Catheter Date of Insertion: 08/04/23 Urinary Catheter Time of Insertion: 05:12 Data 08/07/23 04:35 08/07/23 11:55 Micro: Microbiology 08/03/23 23:30 Blood Culture - Preliminary Blood Staphylococcus aureus 08/03/23 22:22 Blood Culture - Preliminary Blood Staphylococcus aureus 08/04/23 18:25 Gram Stain - Final Sputum - Expectorated Sputum Sputum Culture - Preliminary 08/05/23 10:23 Blood Culture - Preliminary Blood NEGATIVE TO DATE 08/05/23 10:28 Blood Culture - Preliminary Blood NEGATIVE TO DATE 08/04/23 06:20 Urine Culture - Final Urine,Clean Catch A&P Assessment and plan (1) VERONICA (acute kidney injury): Plan 1. Acute on chronic kidney disease: Patient's baseline creatinine is around 1 in May 2023, now has VERONICA with a creatinine of 2.3 on presentation and worsened to 3.3 today. Etiology of VERONICA likely multifactorial. Noted urine electrolytes-consistent with intravascular volume depletion but patient has total body volume overload with pulmonary edema and worsening lower extremity edema. -Patient received IV contrast and renal fxn worse , -s/p temporary HD catheter placement and HD done , plan for HD again today , will run on low BFR due to hypotension , UOP remains low Strict intake and output, 2 g sodium restriction and 1500 mill fluid restriction - 2. History of diastolic CHF and moderate to severe diuretics stenosis per cardiology, 3. MRSA bacteremia with wound, podiatry following on broad-spectrum antibiotics, 4. Acute PE, s/p heparin drip 5. Enteritis/?mesenteric ischemia 6. History of diabetes 7. Sepsis , shock - intubated , on pressors Patient evaluated using audiovisual cart. Time spent 20 minutes. Discussed with patient's at bedside. Attestations Medical Necessity Statement*: per medicine team Coding Level of Care Code Acute Code for [facility] Diagnoses VERONICA (acute kidney injury) N17.9
[2023-08-07] MEDS: cefepime 1,000 MG in sodium chloride 0.9% (plus) 50 ML 100 MG IV ×2 (06:17→19:37)
--- NOTE | 2023-08-07 07:26 | PM.PN ---
Subjective Subjective: Events of the last 24 hours have been reviewed. Patient had a surgical procedure which involved I&D of the foot abscess which revealed that he has osteomyelitis. At the same time he had an I&D of his right shoulder which reveals a joint infection as well as osteomyelitis of the clavicle. Patient was intubated prior to going to the operating room. He remains intubated. The heparin has been on hold because of the surgery. He is now on dopamine and norepinephrine, propofol and fentanyl. Additionally, a temporary dialysis catheter was placed in his left internal jugular vein. He has undergone dialysis. He remains oliguric. His white blood cell count is still elevated. His creatinine is down slightly to 5.6. He is still acidotic with a PCO2 of 52 and a pH of 7.26. His PO2's have been adequate. He is sedated on a ventilator this morning. Vitals/I&O/Wt Last Vital Signs Temp 99 F 08/07/23 04:00 Pulse 61 08/07/23 05:30 Resp 15 08/07/23 04:04 BP 115/47 08/07/23 04:00 Pulse Ox 99 08/07/23 04:04 O2 Del Method Mechanical Ventilation 08/07/23 04:00 O2 Flow Rate 100 08/06/23 20:00 FiO2 60 08/07/23 04:04 08/06/23 08/07/23 08/07/23 22:59 06:59 14:59 Intake Total 1025.076 / 2205.076 1031.883 / 3236.959 Output Total 475 / 475 3152 / 3627 Balance 550.076 / 1730.076 -2120.117 / -390.041 Weight last 48 hrs Weight 335 lb 5 oz Weight 369 lb 4.388 oz Weight 341 lb Physical Exam Narrative: GENERAL: Sedated on a ventilator. HEENT: Exam within normal limits. NECK: Supple without jugular vein distention. The carotid upstroke is normal without bruits. BACK: Exam normal. LUNGS: Clear. HEART: Regular rate and rhythm. ABDOMEN: Benign without organomegaly or tenderness. EXTREMITIES: No edema. NEUROLOGIC. SKIN: Unremarkable. Urinary Catheter Management: Manuel: Cath Placed During This Visit: yes Reason for Continuing Indwelling Catheter: Accurate Measurement of Urinary Output in Critically Ill Patients Urinary Catheter Date of Insertion: 08/04/23 Urinary Catheter Time of Insertion: 05:12 Data 08/07/23 04:35 08/07/23 04:35 Micro: Microbiology 08/03/23 23:30 Blood Culture - Preliminary Blood Staphylococcus aureus 08/03/23 22:22 Blood Culture - Preliminary Blood Staphylococcus aureus 08/04/23 18:25 Gram Stain - Final Sputum - Expectorated Sputum Sputum Culture - Preliminary 08/05/23 10:23 Blood Culture - Preliminary Blood NEGATIVE TO DATE 08/05/23 10:28 Blood Culture - Preliminary Blood NEGATIVE TO DATE 08/04/23 06:20 Urine Culture - Final Urine,Clean Catch A&P Assessment and plan (1) Abscess of right shoulder: (2) Sepsis: (3) Infection of shoulder: (4) Type 2 diabetes mellitus: (5) Aortic stenosis: (6) 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: (7) Elevated troponin: (8) Hyperglycemia: (9) Leukocytosis: (10) Hyponatremia: (11) Pulmonary embolism: (12) VERONICA (acute kidney injury): (13) CAP (community acquired pneumonia): (14) Acute respiratory failure with hypoxia and hypercapnia: (15) Type 2 diabetes mellitus, with long-term current use of insulin: (16) Peripheral artery disease: (17) Dyslipidemia: (18) Benign essential HTN: Plan Cardiology will follow along at a distance with some interest. Patient is obviously not a candidate for any type of cardiac testing. Attestations Medical Necessity Statement*: Requires hospitalization for management of above-mentioned serious medical problems. and Moderate Time for a total of 35 minutes, includes reviewing past or interval history, examining/interviewing patient and documenting encounter Diagnoses Abscess of right shoulder L02.413 Sepsis A41.9 Infection of shoulder M00.9 Type 2 diabetes mellitus E11.9 Aortic stenosis I35.0 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 I70.203 Elevated troponin R79.89 Hyperglycemia R73.9 Leukocytosis D72.829 Hyponatremia E87.1 Pulmonary embolism I26.99 VERONICA (acute kidney injury) N17.9 CAP (community acquired pneumonia) J18.9 Acute respiratory failure with hypoxia and hypercapnia J96.01; J96.02 Type 2 diabetes mellitus, with long-term current use of insulin E11.9; Z79.4 Peripheral artery disease I73.9 Dyslipidemia E78.5 Benign essential HTN I10
[2023-08-07 08:44] LABS: Glucose Point of Care 205 mg/dL (70-110)
[2023-08-07 10:58] LABS: ABG PCO2 51.9 mmHg (35-45); Blood Gas Sample Type Arterial
[2023-08-07 11:08] LABS: Glucose Point of Care 152 mg/dL (70-110)
[2023-08-07] MEDS: insulin lispro 100 unit/1 mL SUBCUT ×2 (11:10→19:02)
[2023-08-07] MEDS: FUROsemide 10 mg/mL SDV 4mL 60 MG IVP ×2 (11:10→18:42)
[2023-08-07] MEDS: DOPamine drip 400 MG/250 ML PREMIX 87.01 MG IV (11:16)
[2023-08-07] MEDS: heparin, porcine 1,000 unit/mL INJ 10 mL 10000 UNIT INTRACATH (11:29)
--- NOTE | 2023-08-07 11:32 | P.PN_ITS ---
Subjective Subjective: Patient intubated and sedated Leukocytosis trending down No fever Currently on Levophed and dopamine Patient is getting dialyzed today as well Hyperkalemic with mild acidosis Persistent respiratory acidosis, minute ventilation has been increased to 10-11 Last night minute ventilation was around as per the respiratory therapist Vitals/I&O/Wt Last Vital Signs Temp 98.6 F 08/07/23 08:11 Pulse 72 08/07/23 08:11 Resp 16 08/07/23 10:10 BP 142/61 08/07/23 08:11 Pulse Ox 95 08/07/23 10:10 O2 Del Method Mechanical Ventilation 08/07/23 08:05 O2 Flow Rate 100 08/06/23 20:00 FiO2 40 08/07/23 10:10 08/06/23 08/07/23 08/07/23 22:59 06:59 14:59 Intake Total 1025.076 / 2205.076 1316.809 / 3521.885 Output Total 475 / 475 3152 / 3627 Balance 550.076 / 1730.076 -1835.191 / -105.115 Weight last 48 hrs Weight 152.095 kg Weight 167.5 kg Weight 154.675 kg Physical Exam Narrative: Right shoulder wound VAC in place Manuel catheter draining 200 mill urine Right foot covered with dressing Dressing is not soaked with any drainage as of yet Patient is intubated and sedated Hemodynamically stable Getting dialyzed Sacral ulcer stage I S1, S2 sinus rhythm Abdomen soft, distended, bowel sounds sluggish Urinary Catheter Management: Manuel: Cath Placed During This Visit: yes Reason for Continuing Indwelling Catheter: Accurate Measurement of Urinary Output in Critically Ill Patients Urinary Catheter Date of Insertion: 08/04/23 Urinary Catheter Time of Insertion: 05:12 Data 08/07/23 04:35 08/07/23 04:35 Micro: Microbiology 08/04/23 18:25 Gram Stain - Final Sputum - Expectorated Sputum Sputum Culture - Final Staphylococcus intermedius 08/03/23 23:30 Blood Culture - Preliminary Blood Staphylococcus aureus 08/03/23 22:22 Blood Culture - Preliminary Blood Staphylococcus aureus 08/05/23 10:23 Blood Culture - Preliminary Blood NEGATIVE TO DATE 08/05/23 10:28 Blood Culture - Preliminary Blood NEGATIVE TO DATE 08/04/23 06:20 Urine Culture - Final Urine,Clean Catch A&P Assessment and plan (1) Abscess of right shoulder: (2) Sepsis: (3) Infection of shoulder: (4) Type 2 diabetes mellitus: (5) Aortic stenosis: (6) Hyperglycemia: (7) Leukocytosis: (8) Hyponatremia: (9) ATN (acute tubular necrosis): (10) Pulmonary embolism: (11) NSTEMI (non-ST elevated myocardial infarction): (12) Acute decompensated heart failure: (13) CAP (community acquired pneumonia): (14) Type 2 diabetes mellitus, with long-term current use of insulin: (15) S/P debridement: Plan Sepsis related to abscesses of right shoulder Status post debridement Wound VAC in place Right shoulder debridement 08/06 Stage I sacral ulcer Right foot debridement 08/06 Leukocytosis trending down Continue broad-spectrum antibiotics stage I decubitus ulcer, nurse notified for frequent nursing?position change, offloading dressing Respiratory failure perioperatively requiring mechanical ventilation Patient is sedated with propofol and fentanyl Persistent hypercapnia despite on a ventilator Increased minute ventilation to 10-11, spoke with respiratory placed today Repeat ABG No signs of auto PEEP Hypotension and bradycardia Patient was put on Levophed and dopamine Non-STEMI Medical management Appreciate cardiology recommendations not a surgical candidate at this point for Severe aortic valve stenosis, ATN related to sepsis, use of nephrotoxic agents, contrast induced: Patient getting dialyzed Temperature abscess catheter placed 08/06 Guarded prognosis N.p.o. We will consult dietitian Plan is to do weaning trial by tomorrow if fails weaning trial might have to start PPN/TPN Multiple family meetings conducted, patient was seen multiple times cordinated care with 4 physicians Attestations Medical Necessity Statement*: Continue ICU management Coding Level of Care Code Critical Care >/= 30 minutes Critical care time (in minutes): 40 The high probability of a clinically significant, sudden or life threatening deterioration, as referenced in this documentation, required my full and direct attention, intervention and personal management. The critical care time shown is in addition to time spent performing any reported separately billable procedures and includes the following: [x] Data and vital sign review and interpretation [x ] Patient assessment, examination and intervention [x] Medication orders and management [x] Patient/Family updates as able [x] Care Coordination and Documentation. Diagnoses Abscess of right shoulder L02.413 Sepsis A41.9 Infection of shoulder M00.9 Type 2 diabetes mellitus E11.9 Aortic stenosis I35.0 Hyperglycemia R73.9 Leukocytosis D72.829 Hyponatremia E87.1 ATN (acute tubular necrosis) N17.0 Pulmonary embolism I26.99 NSTEMI (non-ST elevated myocardial infarction) I21.4 Acute decompensated heart failure I50.9 CAP (community acquired pneumonia) J18.9 Type 2 diabetes mellitus, with long-term current use of insulin E11.9; Z79.4 S/P debridement Z98.890
--- NOTE | 2023-08-07 11:32 | PC.HD ---
At conclusion of treatment, this RN infused 2200 units (2.2 mL) of heparin into each limb of patient's temporary catheter. 10,000 units was NOT used at this time; MAR documentation states 10,000 units given. Confirmed with Debby, patient's primary RN.
--- NOTE | 2023-08-07 11:35 | PC.HD ---
Patient's BP decreased during hemodialysis treatment. Primary RN adjusted pressors x2. This RN utilized hypotension dialysis orders (lowering of dialysate temperature, reduction of UF rate to 300 mL/hour, and administration of 200 mL bolus of NSS); however, none were effective. Additionally, patient's HD circuit clotted, which would necessitate restringing of dialysis machine. At this time there was 50 minutes left of a four-hour treatment. Crotch Breaker was notified, who advised this RN to terminate treatment and not restring machine to finish the final 50 minutes.
--- NOTE | 2023-08-07 11:56 | P.PN_ITS ---
Subjective Subjective: Patient seen at bedside this morning. Intubated. No overnight events. Vitals/I&O/Wt Last Vital Signs Temp 98.8 F 08/07/23 11:33 Pulse 63 08/07/23 11:33 Resp 16 08/07/23 11:33 BP 98/38 08/07/23 11:33 Pulse Ox 95 08/07/23 10:10 O2 Del Method Mechanical Ventilation 08/07/23 08:05 O2 Flow Rate 100 08/06/23 20:00 FiO2 40 08/07/23 10:10 08/06/23 08/07/23 08/07/23 22:59 06:59 14:59 Intake Total 1025.076 / 2205.076 1316.809 / 3521.885 500 / 500 Output Total 475 / 475 3152 / 3627 1662 / 1662 Balance 550.076 / 1730.076 -1835.191 / -105.115 -1162 / -1162 Weight last 48 hrs Weight 335 lb 8.697 oz Weight 335 lb 5 oz Weight 369 lb 4.388 oz Weight 341 lb Physical Exam Narrative: BELOW IS A FOCUSED LOWER EXTREMITY EXAM GENERAL: A&O x 3 VASCULAR: DP/PT pulses palpable 2/4 with CFT intact, <3seconds DERMATOLOGICAL: Right foot surgical dressing clean, dry, intact with no strik ethrough noted. MUSCULOSKELETAL: Status post right foot transmetatarsal amputation. History of left hallux and second digit amputation NEUROLOGICAL: Neurological sensation to the affected foot and ankle is present through L4-S1 dermatomes with no hyper/hypoesthesias, negative Tinel or Valleix's sign Urinary Catheter Management: Manuel: Cath Placed During This Visit: yes Reason for Continuing Indwelling Catheter: Accurate Measurement of Urinary Output in Critically Ill Patients Urinary Catheter Date of Insertion: 08/04/23 Urinary Catheter Time of Insertion: 05:12 Data 08/07/23 04:35 08/07/23 04:35 Micro: Microbiology 08/04/23 18:25 Gram Stain - Final Sputum - Expectorated Sputum Sputum Culture - Final Staphylococcus intermedius 08/03/23 23:30 Blood Culture - Preliminary Blood Staphylococcus aureus 08/03/23 22:22 Blood Culture - Preliminary Blood Staphylococcus aureus 08/05/23 10:23 Blood Culture - Preliminary Blood NEGATIVE TO DATE 08/05/23 10:28 Blood Culture - Preliminary Blood NEGATIVE TO DATE 08/04/23 06:20 Urine Culture - Final Urine,Clean Catch A&P Assessment and plan (1) Non-pressure chronic ulcer of other part of right foot with necrosis of bone: (2) Diabetic ulcer of right foot: (3) Type 2 diabetes mellitus: Plan LABS AND CLINICAL INFO: WBC 29.4-->26.94 ESR 60 CRP 198 Cultures: Blood culture (08/03/2023) positive for Staph aureus, wound culture (08/05/2023) pending Antibiotics: Vanco/cefepime/Flagyl CT scan right foot showed no readily visualized abscess or fluid collection Positive pulmonary embolus PLAN: -No further surgical invention from podiatry -Status post incision bone cortex right foot with removal nonviable tissue and bone (DOS 08/06/2023). Remaining bone and tissue appeared healthy and viable. No further abscess of the foot noted. -Monitor cultures -Continue IV antibiotic therapy -Leave surgical dressing clean, dry, intact. Podiatry will manage dressing. -Podiatry will follow during admission Attestations Medical Necessity Statement*: See hospitalist note Coding Level of Care Code Acute Code for [facility] Diagnoses Non-pressure chronic ulcer of other part of right foot with necrosis of bone L97.514 Diabetic ulcer of right foot E11.621; L97.519 Type 2 diabetes mellitus E11.9
[2023-08-07 12:26] LABS: Alanine Aminotransferase 14 U/L (0-41); Albumin Level 2.8 g/dL (3.5-5.2); Alkaline Phosphatase 202 U/L (40-130); Anion Gap 19.4 (5-19); Aspartate Amino Transferase 17 U/L (0-40); Calcium 8.1 mg/dL (8.5-10.5); Carbon Dioxide 21 mmol/L (22-29); Chloride 94 mmol/L (98-107); Globulin 2.5 g/dL (1.3-4.6); Glomerular Filtration Rate 14.1 mL/min (90-130); Glucose 174 mg/dL (65-115); Osmolality Calculated 303 mOsm/kg (285-295); Potassium 4.4 mmol/L (3.5-5.1); Sodium 130 mmol/L (136-145); Total Bilirubin 2.1 mg/dL (0.15-1.2); Total Protein 5.3 g/dL (6.6-8.7)
[2023-08-07 12:46] LABS: ABG PCO2 37.9 mmHg (35-45); ABG PH Result 7.34 (7.35-7.45); Blood Gas Operator Identificat GD; Blood Gas Sample Site Not specified; Blood Gas Sample Type Arterial; HCO3 ABG 20.3 mmol/L (22-26); Oxygen Device VENT; PO2 ABG 99.1 mmHg (80.0-100.0); PO2 FiO2 Ratio Arterial Blood 0
[2023-08-07] MEDS: norepinephrine 4 MG/250 ML BAG 60 MG IV (12:54)
[2023-08-07] MEDS: propofol 1,000 MG/100 ML INJ 13.92 MG IV ×2 (12:55→23:44)
[2023-08-07 12:59] LABS: Blood Urea Nitrogen 93 mg/dL (8-23)
[2023-08-07] MEDS: fentaNYL 1,000 MCG/100 ML BAG 10 MCG IV (14:15)
[2023-08-07] MEDS: heparin 5,000 unit/mL INJ 1 mL 5000 UNIT SUBCUT (15:09)
[2023-08-07] MEDS: vasopressin 40 UNIT/100 ML PREMIX IV (15:10)
--- NOTE | 2023-08-07 16:43 | PM.PN ---
Subjective Subjective: Patient seen and examined in ICU. Patient is intubated and sedated limiting HPI. No acute events overnight. Still requiring pressure support and intubated. Deep drain has had output of roughly 150 cc overnight. Output is bloody serosanguineous output Vitals/I&O/Wt Last Vital Signs Temp 98.8 F 08/07/23 11:33 Pulse 113 H 08/07/23 12:00 Resp 18 08/07/23 15:45 BP 101/54 08/07/23 12:00 Pulse Ox 96 08/07/23 15:45 O2 Del Method Mechanical Ventilation 08/07/23 08:05 O2 Flow Rate 100 08/06/23 20:00 FiO2 30 08/07/23 15:45 08/07/23 08/07/23 08/07/23 06:59 14:59 22:59 Intake Total 1316.809 / 3521.885 988.539 / 988.539 0.1 / 988.639 Output Total 3152 / 3627 1662 / 1662 Balance -1835.191 / -105.115 -673.461 / -673.461 0.1 / -673.361 Weight last 48 hrs Weight 335 lb 8.697 oz Weight 335 lb 5 oz Weight 369 lb 4.388 oz Weight 341 lb Physical Exam Narrative: Patient is intubated and sedated unable to perform full examination. The right shoulder has some improvement in swelling. Incisional vacs on in place with good seal has had 150 cc of bloody serosanguineous output noted no signs of purulence or reaccumulation. Mild improvement and patient subtle erythema that was noted over the superior aspect of the shoulder. Unable to perform any other assessment secondary to patient's current status. Urinary Catheter Management: Manuel: Cath Placed During This Visit: yes Reason for Continuing Indwelling Catheter: Accurate Measurement of Urinary Output in Critically Ill Patients Urinary Catheter Date of Insertion: 08/04/23 Urinary Catheter Time of Insertion: 05:12 Data 08/08/23 03:38 08/08/23 03:38 Other Labs: Labs from 08/07/2023 WBC count 26.94 hemoglobin 11.6 Micro: Microbiology 08/04/23 18:25 Gram Stain - Final Sputum - Expectorated Sputum Sputum Culture - Final Staphylococcus intermedius 11/12/23 23:30 Blood Culture - Preliminary Blood Staphylococcus aureus 08/03/23 22:22 Blood Culture - Preliminary Blood Staphylococcus aureus A&P Assessment and plan (1) Sepsis: (2) Infection of shoulder: (3) Abscess of right shoulder: (4) Type 2 diabetes mellitus: (5) Pulmonary embolism: (6) VERONICA (acute kidney injury): Plan Leave incisional VAC and deep drain on in place monitor output Pain control Antibiotics per primary General medicine on board as primary Defer to right foot to podiatry who is currently managing Labs reviewed Orthopedics will continue to follow we will remove deep drain when output slows down. At this point in time satisfactory debridement noted intraoperatively and taken to all viable tissue at this point in time would recommend monitoring of the patient's clinical course as well as output of drain but at this point in time satisfied with debridement and do not have plans for return to OR unless patient begins to have abscess reaccumulation. This was staffed with the family postoperatively as well as primary hospitalist team was contacted about this. Attestations Medical Necessity Statement*: Ongoing care right shoulder abscess infection status post I&D Coding Level of Care Code Acute Code for [facility] Diagnoses Sepsis A41.9 Infection of shoulder M00.9 Abscess of right shoulder L02.413 Type 2 diabetes mellitus E11.9 Pulmonary embolism I26.99 VERONICA (acute kidney injury) N17.9 Time Spent (min) 15
[2023-08-07] MEDS: norepinephrine 4 MG/250 ML BAG 37.5 MG IV (18:42)
[2023-08-07 19:03] LABS: Glucose Point of Care 156 mg/dL (70-110)
[2023-08-07] MEDS: vancomycin 2,000 MG/400 ML PIGGYBACK 200 MG IV (20:42)
[2023-08-07] MEDS: heparin drip 25,000 UNIT/500 ML PREMIX 39 UNIT IV (21:56)
[2023-08-07] MEDS: heparin 5,000 unit/mL INJ 1 mL IV (22:07)
[2023-08-07] MEDS: fentaNYL 1,000 MCG/100 ML BAG 15 MCG IV (23:43)
[2023-08-08] VITALS (53 sets, daily range): BP systolic 60–129; BP diastolic 39–83; PULSE 47–115; RESP 16–22; TEMP 37.1–37.8; O2SAT 74–100
[2023-08-08 00:17] LABS: Glucose Point of Care 178 mg/dL (70-110)
[2023-08-08] MEDS: metroNIDAZOLE IV 500 MG/100 ML PREMIX 100 MG IV ×3 (00:20→15:59)
[2023-08-08] MEDS: norepinephrine 4 MG/250 ML BAG 30 MG IV (00:30)
[2023-08-08] MEDS: albumin 25 G/100 ML BAG 60 G IV ×2 (01:27→08:42)
[2023-08-08] MEDS: fentaNYL 1,000 MCG/100 ML BAG 17.5 MCG IV ×2 (03:14→09:07)
[2023-08-08 03:46] LABS: Hematocrit 34.3 % (37-53); Mean Corpuscular HGB Conc 31.2 g/dL (30-55); Mean Corpuscular Hemoglobin 27.6 pg (27-33); Mean Corpuscular Volume 88.6 fl (82-101); Mean Platelet Volume 12.3 fL (7.4-10.4); Platelet Count 241 10^3/cmm (157-399); Red Blood Count 3.87 10^6/uL (3.85-5.65); Red Cell Distribution Width 15.2 % (12.1-15.1); White Blood Count 29.72 10^3/uL (3.29-11.43)
[2023-08-08 03:57] LABS: Partial Thromboplastin Time 59.5 SECONDS (23.9-36.7)
[2023-08-08] MEDS: pantoprazole 40 mg SDV IVP (04:03)
[2023-08-08 04:06] LABS: ABG PCO2 44.1 mmHg (35-45); Arterial Blood Gas Hematocrit 33.6 % (42-52); Base Excess ABG -4.8 mmol/L (-2.0-2.0); Blood Gas Sample Type Arterial; HCO3 ABG 21.6 mmol/L (22-26); PO2 ABG 72.3 mmHg (80.0-100.0)
[2023-08-08 04:07] LABS: Anion Gap 20.8 (5-19); Calcium 8.2 mg/dL (8.5-10.5); Carbon Dioxide 21 mmol/L (22-29); Chloride 96 mmol/L (98-107); Glomerular Filtration Rate 14.9 mL/min (90-130); Glucose 188 mg/dL (65-115); Osmolality Calculated 313 mOsm/kg (285-295); Potassium 4.8 mmol/L (3.5-5.1); Sodium 133 mmol/L (136-145)
[2023-08-08 04:08] LABS: Blood Gas Sample Site Not specified; Oxygen Device VENT; PO2 FiO2 Ratio Arterial Blood 0
[2023-08-08 04:10] LABS: Blood Urea Nitrogen 102 mg/dL (8-23)
[2023-08-08 04:16] LABS: Slide Review Slide Review Perform
[2023-08-08 04:17] LABS: Absolute Eosinophils 0.3 10^3/cmm (0.0-0.7); Eosinophils 1 %; Lymphocytes 11 %; Monocytes Absolute 2.1 10^3/cmm (0.1-0.6); Platelet Estimate Normal (Normal); Segmented Neutrophils 74 %; Total Cells Counted 100 (0-100)
[2023-08-08] MEDS: vasopressin 40 UNIT/100 ML PREMIX 7.5 UNIT IV (04:25)
[2023-08-08 06:06] LABS: Glucose Point of Care 190 mg/dL (70-110)
[2023-08-08] MEDS: cefepime 1,000 MG in sodium chloride 0.9% (plus) 50 ML 100 MG IV (06:19)
--- NOTE | 2023-08-08 07:29 | PM.PN ---
Subjective Subjective: No significant events over the last 24 hours with the exception of the fact that heparin was added back. Patient became tachycardic and so the norepinephrine was weaned down and vasopressin was added. He remains on propofol and fentanyl as well as IV antibiotics. The nurses tell me that when his sedation is lifted he follows commands. Currently he is rather heavily sedated. His white blood cell count is back up to 29.7. His acidosis is resolving. The latest PCO2 was 38. His pH is up to 7.3. Dialysis continues. BUN and creatinine are stable 102 and 4.1 respectively. He is anuric. He remains intubated on mechanical ventilation. Temperature around 99 degrees. Oxygen saturations mid 90s. Blood pressure running around 100 systolic. Vitals/I&O/Wt Last Vital Signs Temp 99.1 F 08/08/23 04:00 Pulse 95 08/08/23 06:00 Resp 16 08/08/23 04:12 BP 101/58 08/08/23 04:00 Pulse Ox 95 08/08/23 04:12 O2 Del Method Mechanical Ventilation 08/08/23 04:00 O2 Flow Rate 100 08/06/23 20:00 FiO2 35 08/08/23 04:12 08/07/23 08/08/23 08/08/23 22:59 06:59 14:59 Intake Total 600.781 / 2223.838 1249.218 / 2981.538 50 / 50 Output Total 1275 / 2937 550 / 3487 Balance -674.219 / -1147.680 642.218 / -505.462 50 / 50 Weight last 48 hrs Weight 350 lb Weight 335 lb 8.697 oz Weight 335 lb 5 oz Weight 369 lb 4.388 oz Physical Exam Narrative: GENERAL: He is intubated and sedated HEENT: Exam within normal limits. NECK: Supple without jugular vein distention. The carotid upstroke is normal without bruits. BACK: Exam normal. LUNGS: Clear. HEART: Regular rate and rhythm. ABDOMEN: Benign without organomegaly or tenderness. EXTREMITIES: No edema. NEUROLOGIC: Not done SKIN: Unremarkable. Urinary Catheter Management: Manuel: Cath Placed During This Visit: yes Reason for Continuing Indwelling Catheter: Accurate Measurement of Urinary Output in Critically Ill Patients Urinary Catheter Date of Insertion: 08/04/23 Urinary Catheter Time of Insertion: 05:12 Data 08/08/23 03:38 08/08/23 03:38 Micro: Microbiology 08/06/23 18:12 Gram Stain - Final Shoulder - Right Anaerobic Culture - Preliminary Tissue Culture - Preliminary Coag positive Staphylococcus 08/06/23 18:08 Gram Stain - Final Shoulder - Right Anaerobic Culture - Preliminary Abscess Culture - Preliminary Coag positive Staphylococcus 08/06/23 18:02 Gram Stain - Final Other Source Anaerobic Culture - Preliminary Abscess Culture - Preliminary 08/05/23 18:34 Gram Stain - Final Tissue Wound Culture - Preliminary 08/06/23 18:05 Abscess Culture - Preliminary Shoulder - Right Coag positive Staphylococcus 08/03/23 22:22 Blood Culture - Preliminary Blood Staphylococcus aureus 08/04/23 18:25 Gram Stain - Final Sputum - Expectorated Sputum Sputum Culture - Final Staphylococcus intermedius A&P Assessment and plan (1) S/P debridement: (2) ATN (acute tubular necrosis): (3) Abscess of right shoulder: (4) Sepsis: (5) Type 2 diabetes mellitus: (6) Aortic stenosis: (7) Elevated troponin: (8) Leukocytosis: (9) Pulmonary embolism: (10) CAP (community acquired pneumonia): (11) Acute respiratory failure with hypoxia and hypercapnia: (12) S/P foot surgery: (13) Peripheral artery disease: (14) Benign essential HTN: Plan No change. No cardiac issues currently. Attestations Medical Necessity Statement*: Requires admission for management of above medical problems. and Moderate Time for a total of 30 minutes, includes reviewing past or interval history, examining/interviewing patient and documenting encounter Diagnoses S/P debridement Z98.890 ATN (acute tubular necrosis) N17.0 Abscess of right shoulder L02.413 Sepsis A41.9 Type 2 diabetes mellitus E11.9 Aortic stenosis I35.0 Elevated troponin R79.89 Leukocytosis D72.829 Pulmonary embolism I26.99 CAP (community acquired pneumonia) J18.9 Acute respiratory failure with hypoxia and hypercapnia J96.01; J96.02 S/P foot surgery Z98.890 Peripheral artery disease I73.9 Benign essential HTN I10
[2023-08-08] MEDS: insulin lispro 100 unit/1 mL SUBCUT ×2 (07:37→13:13)
[2023-08-08 07:38] LABS: Glucose Point of Care 197 mg/dL (70-110)
[2023-08-08] MEDS: amiodarone 50 mg/mL SDV 3 mL 150 MG IVP (08:40)
[2023-08-08] MEDS: FUROsemide 10 mg/mL SDV 4mL 60 MG IVP (08:42)
--- NOTE | 2023-08-08 09:31 | PC.SOCIAL ---
IMM Updated Updated pt's spouse on IMM. No questions voiced. Provided a copy. Initialed, dated, & timed copy in chart.
[2023-08-08] MEDS: propofol 1,000 MG/100 ML INJ 13.92 MG IV (09:59)
[2023-08-08 10:29] LABS: Partial Thromboplastin Time 56.6 SECONDS (23.9-36.7)
[2023-08-08] MEDS: heparin drip 25,000 UNIT/500 ML PREMIX 39 UNIT IV (11:00)
--- NOTE | 2023-08-08 11:44 | PM.PN ---
Subjective Subjective: White count 29,000 No fever Shoulder tissue culture showing Staphylococcus Repeat cultures negative 1200 mL urine output Requiring vasopressin and Levophed Levophed at 6 mics, heart rate 120s A-fib RVR Given amiodarone push Heparin drip started last night Vitals/I&O/Wt Last Vital Signs Temp 100.0 F H 08/08/23 07:30 Pulse 98 08/08/23 08:30 Resp 16 08/08/23 10:00 BP 107/66 08/08/23 08:30 Pulse Ox 97 08/08/23 10:00 O2 Del Method Mechanical Ventilation 08/08/23 07:30 O2 Flow Rate 100 08/06/23 20:00 FiO2 35 08/08/23 10:00 08/07/23 08/08/23 08/08/23 22:59 06:59 14:59 Intake Total 600.781 / 0715.600 5082.218 / 2981.538 241.868 / 241.868 Output Total 1275 / 2937 550 / 3487 550 / 550 Balance -674.219 / -1147.680 642.218 / -505.462 -308.132 / -308.132 Weight last 48 hrs Weight 158.757 kg Weight 152.2 kg Weight 152.095 kg Weight 167.5 kg Physical Exam Narrative: Patient is intubated and sedated A-fib RVR Abdomen distended, sluggish bowel sound Manuel catheter draining urine Sacral area ulcer stage I Lower extremity venous stasis dermatitis Wound VAC right shoulder, right foot covered with dressing Variable S1-S2 Urinary Catheter Management: Manuel: Cath Placed During This Visit: yes Reason for Continuing Indwelling Catheter: Accurate Measurement of Urinary Output in Critically Ill Patients Urinary Catheter Date of Insertion: 08/04/23 Urinary Catheter Time of Insertion: 05:12 Data 08/08/23 03:38 08/08/23 03:38 Micro: Microbiology 08/06/23 18:12 Gram Stain - Final Shoulder - Right Anaerobic Culture - Preliminary Tissue Culture - Preliminary Coag positive Staphylococcus 08/06/23 18:08 Gram Stain - Final Shoulder - Right Anaerobic Culture - Preliminary Abscess Culture - Preliminary Coag positive Staphylococcus 08/06/23 18:02 Gram Stain - Final Other Source Anaerobic Culture - Preliminary Abscess Culture - Preliminary 08/05/23 18:34 Gram Stain - Final Tissue Wound Culture - Preliminary 08/06/23 18:05 Abscess Culture - Preliminary Shoulder - Right Coag positive Staphylococcus 08/03/23 22:22 Blood Culture - Preliminary Blood Staphylococcus aureus 08/04/23 18:25 Gram Stain - Final Sputum - Expectorated Sputum Sputum Culture - Final Staphylococcus intermedius A&P Assessment and plan (1) S/P debridement: (2) ATN (acute tubular necrosis): (3) Abscess of right shoulder: (4) Sepsis: (5) Infection of shoulder: (6) Type 2 diabetes mellitus: (7) Aortic stenosis: (8) 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: (9) Elevated troponin: (10) Hyperglycemia: (11) Leukocytosis: (12) Hyponatremia: (13) Pulmonary embolism: (14) NSTEMI (non-ST elevated myocardial infarction): (15) Acute decompensated heart failure: (16) CAP (community acquired pneumonia): (17) Ulcer of sacral region, stage 1: (18) New onset a-fib: Plan Sepsis: Right shoulder abscess status post debridement Wound VAC in place White count is still around 29,000 Afebrile Repeat cultures negative Cultures from the OR showing Staphylococcus Continue broad-spectrum antibiotics Clavicle osteomyelitis We will touch base with orthopedics to see if wound VAC could be removed in next 24 hours Patient intubated and sedated Restaurant failure requiring mechanical ventilation Patient not ready to be extubated He is on 2 pressors Fluid overloaded New onset A-fib RVR Currently on heparin drip Given amiodarone today We will add Antiarrhythmic, not a good candidate for beta or calcium jose j. Septic shock Currently requiring vasopressin and Levophed Source control done with debridement of right foot abscess and right shoulder Repeat cultures negative Cultures from the OR showing Staphylococcus most likely the primary source ATN, patient required dialysis 1200 mL urine output today Stage I sacral ulcer, Optifoam offloading dressing, Present since admission UTI: Currently on antibiotics Mesenteric ischemia: Lactic acid improved Persistent leukocytosis related to sepsis, septic joint PE: Continue heparin drip Prognosis guarded Not a good candidate to be on enteral feeding We may need to start PPN Hyperglycemia: I am reluctant to use insulin drip because patient's kidney function has worsened Secondary to volume overload he is not a good candidate to be on D5 drip with insulin drip Attestations Medical Necessity Statement*: Continue ICU management Diagnoses S/P debridement Z98.890 ATN (acute tubular necrosis) N17.0 Abscess of right shoulder L02.413 Sepsis A41.9 Infection of shoulder M00.9 Type 2 diabetes mellitus E11.9 Aortic stenosis I35.0 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 I70.203 Elevated troponin R79.89 Hyperglycemia R73.9 Leukocytosis D72.829 Hyponatremia E87.1 Pulmonary embolism I26.99 NSTEMI (non-ST elevated myocardial infarction) I21.4 Acute decompensated heart failure I50.9 CAP (community acquired pneumonia) J18.9 Ulcer of sacral region, stage 1 L98.429 New onset a-fib I48.91
[2023-08-08] MEDS: norepinephrine 4 MG/250 ML BAG 22.5 MG IV (13:11)
[2023-08-08] MEDS: clindamycin 900 MG/50 ML PREMIX 100 MG IV (13:14)
[2023-08-08 13:22] LABS: Glucose Point of Care 185 mg/dL (70-110)
--- NOTE | 2023-08-08 13:24 | P.PN_ITS ---
Subjective Subjective: Patient seen and examined in ICU. Family at bedside. Patient remains sedated and intubated. Drain had roughly 125 cc output over last 24 hours output is bloody serosanguineous. Vitals/I&O/Wt Last Vital Signs Temp 100.0 F H 08/08/23 07:30 Pulse 103 H 08/08/23 12:04 Resp 16 08/08/23 12:05 BP 107/66 08/08/23 08:30 Pulse Ox 97 08/08/23 12:05 O2 Del Method Mechanical Ventilation 08/08/23 12:04 O2 Flow Rate 100 08/06/23 20:00 FiO2 35 08/08/23 12:05 08/07/23 08/08/23 08/08/23 22:59 06:59 14:59 Intake Total 600.781 / 7821.318 9354.218 / 2981.538 1063.243 / 1063.243 Output Total 1275 / 2937 550 / 3487 550 / 550 Balance -674.219 / -1147.680 642.218 / -505.462 513.243 / 513.243 Weight last 48 hrs Weight 350 lb Weight 335 lb 8.697 oz Weight 335 lb 5 oz Weight 369 lb 4.388 oz Physical Exam Narrative: Patient is intubated and sedated unable to perform full examination. The right shoulder has some improvement in swelling. Incisional vacs on in place with good seal has had 125 cc of bloody serosanguineous output noted no signs of purulence or reaccumulation. continued improvement and patient improvement in erythema that was noted over the superior aspect of the shoulder. Unable to perform any other assessment secondary to patient's current status. Urinary Catheter Management: Manuel: Cath Placed During This Visit: yes Reason for Continuing Indwelling Catheter: Accurate Measurement of Urinary Output in Critically Ill Patients Urinary Catheter Date of Insertion: 08/04/23 Urinary Catheter Time of Insertion: 05:12 Data 08/08/23 03:38 08/08/23 03:38 Micro: Microbiology 08/06/23 18:12 Gram Stain - Final Shoulder - Right Anaerobic Culture - Preliminary Tissue Culture - Preliminary Coag positive Staphylococcus 08/06/23 18:08 Gram Stain - Final Shoulder - Right Anaerobic Culture - Preliminary Abscess Culture - Preliminary Coag positive Staphylococcus 08/06/23 18:02 Gram Stain - Final Other Source Anaerobic Culture - Preliminary Abscess Culture - Preliminary 08/05/23 18:34 Gram Stain - Final Tissue Wound Culture - Preliminary 08/06/23 18:05 Abscess Culture - Preliminary Shoulder - Right Coag positive Staphylococcus 08/03/23 22:22 Blood Culture - Preliminary Blood Staphylococcus aureus 08/04/23 18:25 Gram Stain - Final Sputum - Expectorated Sputum Sputum Culture - Final Staphylococcus intermedius A&P Assessment and plan (1) Sepsis: (2) Infection of shoulder: (3) Abscess of right shoulder: (4) Type 2 diabetes mellitus: (5) Pulmonary embolism: (6) VERONICA (acute kidney injury): Plan Leave incisional VAC and deep drain on in place monitor output Pain control Antibiotics per primary General medicine on board as primary Defer to right foot to podiatry who is currently managing Labs reviewed Orthopedics will continue to follow we will remove deep drain when output slows down. At this point in time satisfactory debridement noted intraoperatively and taken to all viable tissue at this point in time would recommend monitoring of the patient's clinical course as well as output of drain but at this point in time satisfied with debridement and do not have plans for return to OR unless patient begins to have abscess reaccumulation. I have signed out care for patient with my partner who will be on-call this weekend and will follow patient. Plan to possibly move drain tomorrow versus Friday depending on output. Thank you for allowing me to partake in the care of this patient. Educated family at bedside about plan of pulling drain this weekend understand agree with current plan. Questions answered. Attestations Medical Necessity Statement*: Ongoing care right shoulder abscess infection status post I&D Coding Level of Care Code Acute Code for [facility] Fwd Diagnoses Sepsis A41.9 Infection of shoulder M00.9 Abscess of right shoulder L02.413 Type 2 diabetes mellitus E11.9 Pulmonary embolism I26.99 VERONICA (acute kidney injury) N17.9
[2023-08-08] MEDS: fentaNYL 1,000 MCG/100 ML BAG 15 MCG IV (14:25)
--- NOTE | 2023-08-08 15:10 | P.PN_ITS ---
Subjective Subjective: UOP picked up remains on vent and on pressors Medications: Reviewed: Yes Vitals/I&O/Wt Last Vital Signs Temp 98.8 F 08/08/23 12:30 Pulse 99 08/08/23 14:00 Resp 16 08/08/23 13:31 BP 111/79 08/08/23 13:30 Pulse Ox 93 08/08/23 13:31 O2 Del Method Mechanical Ventilation 08/08/23 12:30 O2 Flow Rate 100 08/06/23 20:00 FiO2 30 08/08/23 13:31 08/08/23 08/08/23 08/08/23 06:59 14:59 22:59 Intake Total 1192.218 / 2981.538 1155.993 / 1155.993 Output Total 550 / 3487 1700 / 1700 Balance 642.218 / -505.462 -544.007 / -544.007 Weight last 48 hrs Weight 158.757 kg Weight 152.2 kg Weight 152.095 kg Weight 167.5 kg Physical Exam Narrative: intubated and sedated no distress SQS2 RRR per report lungs clear per report + edema Urinary Catheter Management: Manuel: Cath Placed During This Visit: yes Reason for Continuing Indwelling Catheter: Accurate Measurement of Urinary Output in Critically Ill Patients Urinary Catheter Date of Insertion: 08/04/23 Urinary Catheter Time of Insertion: 05:12 Data 08/08/23 03:38 08/08/23 03:38 Micro: Microbiology 08/06/23 18:12 Gram Stain - Final Shoulder - Right Anaerobic Culture - Preliminary Tissue Culture - Preliminary Coag positive Staphylococcus 08/06/23 18:08 Gram Stain - Final Shoulder - Right Anaerobic Culture - Preliminary Abscess Culture - Preliminary Coag positive Staphylococcus 08/06/23 18:02 Gram Stain - Final Other Source Anaerobic Culture - Preliminary Abscess Culture - Preliminary 08/05/23 18:34 Gram Stain - Final Tissue Wound Culture - Preliminary 08/06/23 18:05 Abscess Culture - Preliminary Shoulder - Right Coag positive Staphylococcus 08/03/23 22:22 Blood Culture - Preliminary Blood Staphylococcus aureus 08/04/23 18:25 Gram Stain - Final Sputum - Expectorated Sputum Sputum Culture - Final Staphylococcus intermedius A&P Assessment and plan (1) VERONICA (acute kidney injury): Plan 1. Acute on chronic kidney disease: Patient's baseline creatinine is around 1 in May 2023, now has VERONICA with a creatinine of 2.3 on presentation and worsened to 3.3 today. Etiology of VERONICA likely multifactorial. Noted urine electrolytes-consistent with intravascular volume depletion but patient has total body volume overload with pulmonary edema -Patient received IV contrast -s/p temporary HD catheter placement and HD x 2 sessions , unable to do much UF due to hypotension , on pressors - hold off HD today and plan for HD in AM Strict intake and output, 2 g sodium restriction and 1500 mill fluid restriction - 2. History of diastolic CHF and moderate to severe aortic stenosis 3. MRSA bacteremia with wound, podiatry following on broad-spectrum antibiotics, 4. Acute PE, s/p heparin drip 5. Enteritis/?mesenteric ischemia 6. History of diabetes 7. Sepsis , shock - intubated , on pressors 8. New A fib 9. Shoulder abscess s/p drainage Patient evaluated using audiovisual cart. Time spent 20 minutes. Discussed with patient's at bedside. Attestations Medical Necessity Statement*: per medicine team Coding Level of Care Code Acute Code for [facility] Diagnoses VERONICA (acute kidney injury) N17.9
[2023-08-08] MEDS: vasopressin 40 UNIT/100 ML PREMIX 9 UNIT IV (15:57)
--- NOTE | 2023-08-08 17:04 | PC.NURSE ---
Shift Summary: uneventful shift. Rested in bed throughout the day. Started on amiodarone drip for afib. Over the last 2 days oxygen desaturation have made it unsafe to effectively turn patient, but after starting the amiodarone and having better heart rate control he tolerates turns. Bruising with skin tears on bilateral buttocks, dressed with covaderm. 1 bowel movement today. 1500mL urine. Family updated.
[2023-08-08 18:14] LABS: Partial Thromboplastin Time 55.1 SECONDS (23.9-36.7)
--- NOTE | 2023-08-08 18:28 | P.PNCC_ITS ---
Critical Care Event Note The high probability of a clinically significant, sudden or life threatening deterioration of the patient's [] system(s) required my full and direct attention, intervention and personal management. The critical care time is as shown. This time is in addition to time spent performing any reported procedures but includes the following: [x] Data and vital sign review and interpretation [x] Patient assessment, examination and intervention [x] Documentation [x] Medication orders and management Critical Care Time Code activated: No Critical Care Time (min): 40 Additional information about critical care time: Around 6 PM patient was getting bradycardic, ICU nursing staff administered 1 mg of epinephrine which improved his heart rate and blood pressure for about 30 mi nutes, I immediately conduct another family meeting, daughter and is at the bedside, they do not want us to do chest compressions or shock, they would like to stop current critical care and would opt for comfort care, change CODE STATUS from full code to comfort care, family does have good insight they had understanding regarding poor prognosis Coding Level of Care Code Acute Code for [facility]
--- NOTE | 2023-08-08 20:02 | PC.NURSE ---
At 1757, patient suddenly became bradycardic, heart rate in the 30's, and hypotensive, blood pressure 50 systolic per Arterial line, cardiac strip in chart.. Atropine and epinephrine administeresd Per ACLS which improved heart rate and blood pressure. NUrse called Dr meyers and updated him on status change. Dr Meyers spoke to family and at 1830 they decided to go with comfort measures. Nurse discontinued Drip medications due to comfort measures, educated family on comfort care process and the medications we can provide to the patient, and is monitoring the patient. Family wants to keep patient intubated until additional family members arrive.
[2023-08-08] MEDS: morphine 4 mg/mL SDV 1 mL IVP ×4 (20:37→23:47)
[2023-08-08] MEDS: atropine 1% op soln 2 mL Btl 3 DROP SUBLINGUAL (21:40)
[2023-08-08] MEDS: glycopyrrolate 0.2 mg/mL SDV 2 mL IV (21:41)
[2023-08-08] MEDS: LORazepam 2 mg/mL INJ 1 mL IVP (21:42)
--- NOTE | 2023-08-08 22:03 | PC.NURSE ---
This nurse talked to Odalis Mcbride from [facility]. She stated that the patient was a medical rule out for organ donation. She stated that they just wanted to be contacted at the time of . 2044: Patient was extubated successfully by respiratory therapist.
[2023-08-09] VITALS: PULSE 46; O2SAT 94
[2023-08-09 00:30] VITALS: PULSE 47; O2SAT 94
[2023-08-09 01:00] VITALS: PULSE 45; O2SAT 95
[2023-08-09 01:30] VITALS: PULSE 0
--- NOTE | 2023-08-09 02:00 | P.DES_ITS ---
Discharge Providers DDS Date of Admission: 08/04/23 02:18 Date Summary Completed: 08/09/23 Attending Provider at Admission: Geovanni Espinoza Time of : 01:30 Attending Provider at Discharge: Yenny Meyers MD Primary Care Provider: DO CADY Peacock Diagnoses Hospital Diagnoses (1) VERONICA (acute kidney injury): Reason for Visit Reason for Visit high blood sugars Summary Date and Time of Date of : 08/09/23 Time of : 01:30 Summary Summary: 62-year-old male who was admitted for management evaluation of worsening of shortness of breath acute hypoxic hypercapnic respite failure, non-STEMI, he was deemed not a good candidate for surgical intervention by cardiology, patient had significant leukocytosis, he was diagnosed with sepsis related to right foot ulcer, osteomyelitis of right shoulder which was evident on MRI, podiatry, cardiology, nephrology orthopedics, services were consulted, patient went for incision and drainage of abscess right foot and right shoulder, patient was intu bated perioperatively, developed ATN required multiple sessions of dialysis, he was requiring 2 pressors Levophed and vasopressin and required dopamine temporarily. Etiology of : Septic shock, sepsis related cardiomyopathy, acute renal failure. Family had good insight regarding poor prognosis, patient was in heart failure with hyponatremia was in septic shock with multiorgan failure Comfort care was started 6:30 PM 08/08 with change in CODE STATUS Additional Data Confirmation of as documented by pronouncing clinician: no pulse, no respirations, no heart sounds and pupils fixed and dilated Family: at bedside Additional persons at bedside: nursing staff Attending/PCP notified?: I am attending Was code activated?: No Autopsy requested?: No Advance directives?: No Hospice patient?: Yes Discharge Plan Discharge Patient Disposition: Condition: Serious Probable Cause of Probable cause of : Cardiac arrest DS Attestations Time Spent in /Discharge Care*: greater than 30 min Quality - AMI: AMI present?: No Quality - Stroke: CVA present?: No Quality - VTE: VTE present?: No Deep Vein Thrombosis/Pulmonary Embolism Present on Admission: No Coding Level of Care Code Acute Code for [facility] Diagnoses VERONICA (acute kidney injury) N17.9
--- NOTE | 2023-08-09 02:02 | PC.NURSE ---
This nurse talked with Savannah Prabhakar at [facility].She stated that the patient might be eligible for tissue donation and to place the patient in our morgue and not to release to the home. [facility] will talk to the family about the possibility of tissue donation. Referal number is [id number].
--- NOTE | 2023-08-09 03:22 | PC.NURSE ---
Patients's family took patients clothes with them home. Patient's lines were discontinued and all of them were intact. Right shoulder dressing left due to concern of bleeding and also he wrapping of the right foot. [place] [facility] [place].
== END 2023-08-09 01:26 | disposition expired | DRG 853 ==
LOC: ER 08-04 01:52 → ICU 08-04 02:46
PROVIDERS: Hospitalist; Internal Medicine; Physician Assistant; Podiatrist Foot & Ankle Surgery; Student in an Organized Health Care Education/Training Program; Admitting Provider Internal Medicine; Emergency Provider Emergency Medicine; PCP Family Medicine; Visit Provider Internal Medicine
PROC: 0PB50ZZ Excision of Right Scapula, Open Approach (ICD-10-PCS; principal; 2023-08-06 13:30)
PROC: 0Y6T0Z0 Detachment at Right 3rd Toe, Complete, Open Approach (ICD-10-PCS; 2023-08-06 13:30)
DX: A41.02 Sepsis due to Methicillin resistant Staphylococcus aureus (principal); I21.A1 Myocardial infarction type 2; I50.33 Acute on chronic diastolic (congestive) heart failure; R65.21 Severe sepsis with septic shock; N17.0 Acute kidney failure with tubular necrosis; J96.02 Acute respiratory failure with hypercapnia; J96.01 Acute respiratory failure with hypoxia; I26.99 Other pulmonary embolism without acute cor pulmonale; J15.9 Unspecified bacterial pneumonia; M86.171 Other acute osteomyelitis, right ankle and foot; M86.111 Other acute osteomyelitis, right shoulder; I13.0 Hypertensive heart and chronic kidney disease with heart failure and stage 1 through stage 4 chronic kidney disease, or unspecified chronic kidney disease; I42.8 Other cardiomyopathies; E66.2 Morbid (severe) obesity with alveolar hypoventilation; Z68.41 Body mass index [BMI] 40.0-44.9, adult; E87.29 Other acidosis; M00.011 Staphylococcal arthritis, right shoulder; L02.611 Cutaneous abscess of right foot; L02.413 Cutaneous abscess of right upper limb; E87.1 Hypo-osmolality and hyponatremia; N39.0 Urinary tract infection, site not specified; T50.8X5A Adverse effect of diagnostic agents, initial encounter; E11.65 Type 2 diabetes mellitus with hyperglycemia; E11.51 Type 2 diabetes mellitus with diabetic peripheral angiopathy without gangrene; E11.69 Type 2 diabetes mellitus with other specified complication; E11.22 Type 2 diabetes mellitus with diabetic chronic kidney disease; N18.30 Chronic kidney disease, stage 3 unspecified; Z95.820 Peripheral vascular angioplasty status with implants and grafts; I46.9 Cardiac arrest, cause unspecified; Z11.52 Encounter for screening for COVID-19; Z89.412 Acquired absence of left great toe; G89.29 Other chronic pain; M25.512 Pain in left shoulder; M25.511 Pain in right shoulder; B95.8 Unspecified staphylococcus as the cause of diseases classified elsewhere; E87.5 Hyperkalemia; L89.151 Pressure ulcer of sacral region, stage 1; I95.9 Hypotension, unspecified; R00.1 Bradycardia, unspecified; I48.91 Unspecified atrial fibrillation; Z51.5 Encounter for palliative care; Z89.411 Acquired absence of right great toe; I35.0 Nonrheumatic aortic (valve) stenosis; Z59.89 Other problems related to housing and economic circumstances; Z87.891 Personal history of nicotine dependence; M48.061 Spinal stenosis, lumbar region without neurogenic claudication
CPT/HCPCS: 36415; 36416; 36573; 36600; 51702; 71045; 71275; 73200; 73221; 73700; 74177; 76705; 80048; 80051; 80053; 80202; 81001; 82009; 82044; 82330; 82436; 82550; 82803; 82805; 82962; 83605; 83735; 83880; 84133; 84145; 84300; 84443; 84484; 85007; 85025; 85049; 85378; 85651; 85730; 85999; 86140; 86403; 86705; 86706; 87040; 87070; 87075; 87077; 87086; 87150; 87176; 87186; 87205; 87340; 87449; 87635; 87641; 88307; 88311; 90935; 93005; 93306; 93976; 94002; 94003; 94660; 94799; 96365; 96372; 96375; 96376; 99291; A4570; C9113; J0171; J0282; J0283; J0692; J1265; J1644; J1815; J1940; J2060; J2250; J2270; J2310; J2543; J2598; J2704; J3010; J3370; J3372; J3490; P9046; P9047; Q3014; Q9967